=== PATIENT | female | born 1940 | race Caucasian/White ===

== ENCOUNTER 2023-01-03 17:18 | Observation (INO) | payer OTHER, SELFPAY ==
[2023-01-03] VITALS (19 sets, daily range): BP systolic 113–162; BP diastolic 60–82; PULSE 66–86; RESP 11–22; TEMP 35.9–36.5; O2SAT 93–100; BMI 20.6; BMI 19.5
--- NOTE | ~2023-01-03 | XR_ITS ---
EXAMINATION: XR chest 2V Exam Date/Time: 01/03/2023 18:50 CDT HISTORY: chest pain x3 days, left side, no cardiac hx Comparison: None available. RESULT: Lines, tubes, and devices: None. Lungs and pleura: Senescent changes. No focal consolidation or pneumothorax. Cardiomediastinal silhouette: Aortic arch calcification. Mild aortic tortuosity. Other: No acute upper abdominal finding. Osteopenia. Degenerative changes in the shoulders and spine . Moderate wedge compression deformity of a midthoracic vertebral body. IMPRESSION: No acute cardiopulmonary process. Moderate wedge compression deformity of a mid thoracic vertebral alanna dy of uncertain age, correlate with pain/tenderness. Reviewed, dictated and finalized at location K. IMPRESSION: No acute cardiopulmonary process. Moderate wedge compression deformity of a mid thoracic vertebral body of uncertain age, correlate with pain/tenderness.
--- NOTE | ~2023-01-03 | XR_ITS ---
EXAMINATION: XR_RIBSBI_CR Exam Date/Time: 01/04/2023 14:05 CDT HISTORY: rib pn LEFT SIDE PAINS Comparison: CTPA 01/03/2023. RESULT: Lines, tubes, and devices: None. Lungs and pleura: Senescent changes. Biapical pleural scarring.. Cardiothymic silhouette: Stable. Other: No acute osseous or upper abdominal finding. Thoracolumbar scoliosis. Thoracic and lumbar deg enerative disc disease. Redemonstration of the moderate compression deformity at T6. IMPRESSION: No acute osseous finding in the ribs. Small left pleural effusion versus chronic pleural parenchymal scarring Reviewed, dictated and finalized at location K. IMPRESSION: No acute osseous finding in the ribs. Small left pleural effusion versus chroni c pleural parenchymal scarring
--- NOTE | ~2023-01-03 | CT_ITS ---
EXAMINATION: CTA chest PE protocol DATE: 01/03/2023 19:21 INDICATION: Left sided chest pain TECHNIQUE: Computed tomography angiography (CTA) of the chest was performed with 100 mL Omnipaque-350 intravenous contrast timed to evaluate the pulmonary arteries. Coronal maximum intensity projection 3D-reconstructions were created by the technologist. The dose-length product (DLP) was 165.80 mGy-cm. Automated exposure control and iterative reconstruction technique were employed. COMPARISON: X-ray chest, same date. FINDINGS: Lung parenchyma and airways: Lingular and right middle lobe scar/atelectasis. Minimal dependent atele ctasis. Pleura: Unremarkable. Thoracic inlet, axillae and chest wall: Unremarkable. Thoracic aorta: Mild arch calcification. Mediastinum: Mild central pulmonary artery enlargement as can be seen with pulmonary arterial hyperte nsion. Heart and pericardium: Mild cardiomegaly. Coronary artery calcifications: Absent. Upper abdomen: No significant finding. Bones: Moderate compression deformity at T6. Otherwise, no acute osseous finding. Pulmonary arteries: Study quality: Adequate. No pulmonary emboli detected. IMPRESSION: No CT evidence of acute pulmonary embolus. Moderate compression deformity at T6, of uncertain age, co rrelate with pain/tenderness. Reviewed, dictated and finalized at location K. IMPRESSION: No CT evidence of acute pulmonary embolus. Moderate compression deformity at T6 , of uncertain age, correlate with pain/tenderness.
--- NOTE | 2023-01-03 17:19 | ECG_ITS ---
Measurements Intervals [place] Rate: 77 P: 66 DC: 197 QRS: -41 QRSD: 104 T: -11 QT: 356 QTc: 405 Interpretive Statements SINUS RHYTHM LEFT AXIS DEVIATION POSSIBLE LEFT ATRIAL ENLARGEMENT DELAYED PRECORDIAL R/S TRANSITION BORDERLINE ST-T WAVE ABNORMALITY- INFERIOR LEADS BORDERLINE ECG NO PREVIOUS ECG AVAILABLE FOR COMPARISON Electronically Signed On 01-03-2023 21:47:07 CDT by Marcellus Mcfarlane D.O.
[2023-01-03 17:36] LABS: Basophils Percent Auto 0.2 % (0.2-1.2); Hematocrit 32.3 % (37.0-47.0); Hemoglobin 11.3 g/dL (12.0-15.0); Immature Granulocyte Absolute 0.23 K/mm3 (0.00-0.031); Lymphocytes Absolute Auto 0.77 K/mm3 (0.9-3.2); Lymphocytes Percent Auto 6.8 % (18.3-44.2); Mean Corpuscular Hemoglobin 31.6 pg (26-34); Mean Corpuscular Volume 90.2 fl (80-100); Mean Platelet Volume 8.7 fl (7.4-10.4); Monocytes Absolute Auto 0.4 K/mm3 (0.1-0.6); Monocytes Percent Auto 3.1 % (2.6-8.5); Neutrophils Absolute Auto 9.9 K/mm3 (1.3-6.7); Neutrophils Percent Auto 87.9 % (45.5-73.1); Platelet Count Result 261 k/mm3 (150-375); Red Blood Count 3.58 M/mm3 (4.2-5.4); Red Cell Distribution Width 19.1 % (11.5-14.5); White Blood Count 11.3 K/mm3 (4.5-10.0)
[2023-01-03 17:46] LABS: Prothrombin Time 12.7 Seconds (11.1-14.7)
[2023-01-03 17:47] LABS: Partial Thromboplastin Time 24.2 SECONDS (22.3-36.8)
[2023-01-03 17:48] LABS: Alanine Aminotransferase 30 U/L (6-35); Albumin Level 3.5 g/dL (3.5-5.1); Alkaline Phosphatase 89 U/L (38-126); Anion Gap 1 mmol/L (8-16); Aspartate Amino Transferase 22 U/L (14-36); Bilirubin,Total 1.6 mg/dL (0.2-1.3); Blood Urea Nitrogen 21 mg/dL (7-17); Calcium 8.5 mg/dL (8.4-10.2); Carbon Dioxide 33 mmol/L (22-30); Chloride 92 mmol/L (98-107); Estimated Glomerular Filt Rate > 60; Glucose 371 mg/dL (65-110); Lipase 54 U/L (23-300); Potassium 4.4 mmol/L (3.4-5.0); Sodium 126 mmol/L (137-145)
[2023-01-03 18:10] LABS: Troponin I 0.046 ng/mL (0.000-0.034)
[2023-01-03] MEDS: MORPHINE SULFATE (*CRX) 2 MG/ML INJ IV PUSH (19:35)
[2023-01-03 21:09] LABS: Troponin I 0.046 ng/mL (0.000-0.034)
--- NOTE | 2023-01-03 21:20 | PM.IMHP ---
H&P: HPI History of Present Illness Date/Time: 01/03/23 21:20 Chief Complaint: Rib cage pain Narrative: This is an 82-year-old female with past medical history significant for COPD/emphysema, hypertension, stroke, dyslipidemia, temporal arteritis on chronic p.o. steroids, patient was brought to the emergency room for evaluation due to left-sided precordial ribcage pain which is reproducible with movement however patient had elevated troponins along with this, denies any fevers, rigors, chills, rash, nausea, vomiting, abdominal pain, hematemesis, or emesis. Pain is worse with movement it is relieved by pain medication. Patient denies any fevers, chills or rigors. A CT angiogram of the chest PE protocol was reported as: FINDINGS:? Lung parenchyma and airways: Lingular and right middle lobe scar/atelectasis. Minimal dependent atelectasis. Pleura: Unremarkable. Thoracic inlet, axillae and chest wall: Unremarkable. Thoracic aorta: Mild arch calcification. Mediastinum: Mild central pulmonary artery enlargement as can be seen with pulmonary arterial hypertension. Heart and pericardium: Mild cardiomegaly. Coronary artery calcifications: Absent. Upper abdomen: No significant finding. Bones: Moderate compression deformity at T6. Otherwise, no acute osseous finding. Pulmonary arteries: Study quality: Adequate. No pulmonary emboli detected. IMPRESSION: No CT evidence of acute pulmonary embolus. Moderate compression deformity at T6, of uncertain age, correlate with pain/tenderness. A chest x-ray was reported as: IMPRESSION: No acute cardiopulmonary process. Moderate wedge compression deformity of a mid thoracic vertebral body of uncertain age, correlate with pain/tenderness. Review of Systems Review of Systems: Left ribcage pain along the precordial area Constitutional: Constitutional: Denies chills, Denies fatigue, Denies fever(s), Denies lethargy, Denies malaise, Denies night sweats, Denies poor appetite and Denies weakness Eyes: Eyes: Denies change in vision ENT: Denies dysphagia and Denies odynophagia Cardiovascular: Cardiovascular: Reports chest pain, Denies leg edema, Denies lightheadedness and Denies palpitations Respiratory: Respiratory: Denies chest congestion, Denies cough, Denies excessive phlegm production, Denies pain on inspiration and Denies dyspnea Gastrointestinal: Gastrointestinal: Denies abdominal pain, Denies dyspepsia, Denies heartburn, Denies diarrhea, Denies nausea and Denies vomiting Genitourinary: Genitourinary: Denies dysuria Musculoskeletal: Musculoskeletal: Reports other (Left ribcage pain) Integumentary/Breasts: Skin/Breast: Denies rash Neurologic: Denies focal weakness and Denies Sensory deficit (Neuro) Psychiatric: Psychiatric: Reports no additional psychiatric complaints and Reports as per HPI Endocrine: Endocrine: Denies cold intolerance, Denies flushing, Denies heat intolerance, Denies polyphagia, Denies polydipsia and Denies palpitations Hematologic/Lymphatic: Hematologic/Lymphatic: Reports no additional hematologic/lymphatic complaints and Reports as per HPI Allergic/Immunologic: Allergic/Immunologic: Reports no additional allergic/immunologic complaints and Reports as per HPI PMFSH Past Medical History Medical History (Updated 01/04/23 @ 02:34 by Amita Brumfield MD) Depression History of CVA (cerebrovascular accident) 2014 HTN (hypertension), benign Mixed hyperlipidemia Temporal arteritis Surgical History Surgical History History of surgery on wrist Social History Social History (Updated 11/14/22 @ 12:56 by Leslie Win MA) Smoking status: Never smoker Alcohol intake: current Drinks per week: 1 Substance use: never Lack of Transportation: No Lack of Food: Never True Current Housing: I Have Housing Concerned About Future Housing: No Difficulty Paying Gas/Electric Bills: No
--- NOTE | 2023-01-03 21:22 | PC.NURSE ---
Per MD Paredes, okay for patient to take home dose prednisone at this time.
--- NOTE | 2023-01-03 21:47 | ED.CHESTPAIN ---
HPI - Chest Pain General Chief Complaint: Chest Pain Stated Complaint: chest pain Time Seen by Provider: 01/03/23 18:31 History of Present Illness HPI narrative: Patient is an 82-year-old female who presents ER with chest pain. Left-sided. Ongoing for 4 days. Radiates down left arm as well. Began at rest. No falls. Patient also has mechanical pain to her left chest wall. This will sometimes cause her to deteriorate up. No pain with deep breath. Patient does report exertional chest discomfort. She has no history of DC or stenting. She does have recent diagnosis of temporal arteritis. She takes prednisone for this. Related Data Home Medications Medication Instructions Recorded Confirmed amlodipine 5 mg tablet 5 mg PO BID 11/14/22 12/12/22 atorvastatin 10 mg tablet 10 mg PO DAILY 11/14/22 12/12/22 mirtazapine 15 mg tablet 15 mg PO 11/14/22 11/14/22 nystatin 100,000 unit/mL oral 5 ml PO 11/14/22 12/12/22 suspension prednisone 20 mg tablet 20 mg PO 11/14/22 12/12/22 ranitidine HCl 25 mg effervescent mg PO 11/14/22 12/12/22 tablet Allergies Allergy/AdvReac Type Severity Reaction Status Date / Time No Known Allergies Allergy Unverified 12/12/22 09:44 Review of Systems Review of Systems: All systems reviewed & are unremarkable except as noted in HPI and below Constitutional: Constitutional: Denies chills, Denies fatigue and Denies fever(s) ENT: Denies nasal congestion and Denies sore throat Cardiovascular: Cardiovascular: Reports chest pain, Denies rapid heart rate and Reports radiating jaw, neck or arm pain Respiratory: Respiratory: Denies cough and Denies dyspnea Gastrointestinal: Gastrointestinal: Denies abdominal pain, Denies nausea and Denies vomiting [facility] Past Medical History Medical History (Updated 01/03/23 @ 22:50 by Jn Paredes MD) Depression History of CVA (cerebrovascular accident) 2014 HTN (hypertension), benign Mixed hyperlipidemia Temporal arteritis Surgical History Surgical History History of surgery on wrist Social History Social History (Updated 11/14/22 @ 12:56 by Leslie Win MA) Smoking status: Never smoker Alcohol intake: never Substance use: never Lack of Transportation: No Lack of Food: Never True Current Housing: I Have Housing Concerned About Future Housing: No Difficulty Paying Gas/Electric Bills: No Difficulty Paying for Meds: No Currently Unemployed: No Education: High School Diploma/GED Difficulty w/ Childcare or Family Care: No Gender identity (if verbalized by the patient): Female Exam Narrative: GENERAL: Well-appearing, well-nourished, and in no acute distress. HEAD: Normocephalic, atraumatic. EYES: PERRL and EOMI. NECK: Supple. CHEST: Clear to auscultation. No respiratory distress. Tender palpation left chest wall. HEART: Regular rate and rhythm. Normal peripheral pulses. ABDOMEN: Soft, nontender, nondistended. EXTREMITIES: Normal range of motion. No edema. SKIN: Warm, dry, no rash. NEURO: Alert and oriented x3. PSYCH: Normal mood and affect. Course Course Emergency Course: Pain improved with morphine however patient has elevated troponin without history of DC. Would recommend admission to hospitalist service for further evaluation. No PE. Poor glycemic control. Low sodium. Admit to hospitalist service. Lovenox given. Vital Signs Vital signs: Vital Signs Temperature 96.7 F L 01/03/23 17:51 Pulse Rate 86 01/03/23 17:51 Respiratory Rate 18 01/03/23 17:51 Blood Pressure 142/73 H 01/03/23 17:51 Pulse Oximetry 100 01/03/23 17:51 Oxygen Delivery Room Air 01/03/23 17:51 Temperature 96.7 F L 01/03/23 17:51 Pulse Rate 74 01/03/23 21:23 Respiratory Rate 16 01/03/23 21:23 Blood Pressure 129/68 01/03/23 21:23 Pulse Oximetry 99 01/03/23 21:23 Oxygen Delivery Room Air 01/03/23 17:51 MDM - Chest Pain
[2023-01-03] MEDS: MORPHINE SULFATE (*CRX) 4 MG/ML INJ 2 MG IV PUSH (21:58)
[2023-01-03] MEDS: ENOXAPARIN 60 MG/0.6 ML SYRINGE 49 MG SUB-Q (21:58)
--- NOTE | 2023-01-03 23:51 | ADMGEN ---
This patient, Yuridia Garcia, was admitted to IMU Room 212-01. Patient/family oriented to hospital policies and general routines including ID bracelet, bed and alarms, visiting hours, pain management, procedures, bathroom and other care routines, personal items, smoking policy, room service/diet, and visiting hours. Information on how to activate the Rapid Response Team has been discussed. Patient/Family are encouraged to report perceived risks to care and to ask questions if they do not understand what they are told or what they should do.
[2023-01-03 23:56] LABS: Troponin I 0.052 ng/mL (0.000-0.034)
[2023-01-04] VITALS (9 sets, daily range): BP systolic 130–160; BP diastolic 62–77; PULSE 63–90; RESP 18–20; TEMP 36.1–36.5; O2SAT 96–100
--- NOTE | 2023-01-04 | ECHO_ITS ---
Patient Info Name: Yuridia Garcia Age: 82 years : 1940 Gender: Female Ht: 62 in Wt: 107 lbs BSA: 1.45 m2 HR: 74 bpm BP: 160 / 66 mmHg Heart Rhythm: Sinus Rhythm Technical Quality: Good Exam Date: 01/04/2023 11:02 AM Exam Location: [facility] Card Pulmonary Patient Status: Inpatient Admit Date: 01/03/2023 Staff Ordering Physician: Jj Rankin MD (sherri/camille) Nuisance Wildlife Control Operator: Jessica Prakash RDCS Attending Provider: Amita Brumfield MD Referring Physician: Chucho ALVAREZ; Exam Type: CA echo doppler color flow Study Info Indications R07.9 - Chest pain, unspecified Complete two-dimensional, color flow and Doppler transthoracic echocardiogram is performed. Summary 1. Complete two-dimensional, color flow and Doppler transthoracic echocardiogram is performed. 2. Left ventricular chamber dimension is normal. 3. Left ventricular systolic function is normal, estimated at 65-70%. No regional wall motion abnormalities. 4. The left ventricular diastolic function is grade I diastolic dysfunction. 5. Right ventricular systolic function is normal. 6. There is mild aortic valve sclerosis. 7. The mitral valve has thickened leaflets. 8. There is mild tricuspid valve regurgitation. 9. Normal inferior vena cava with >50% collapse upon inspiration consistent with normal right atrial pressure, 3 mmHg. 10. There is trivial pericardial effusion. Left Ventricle Left ventricular chamber dimension is normal. Left ventricular systolic function is normal, estimated at 65-70%. No regional wall motion abnormalities. There is no increased left ventricular wall thickness. The left ventricular diastolic function is grade I diastolic dysfunction. Right Ventricle Right ventricular chamber dimension is normal. Right ventricular systolic function is normal. Left Atria Left atrial chamber dimension is normal. Right Atria Right atrial chamber dimension is normal. Atrial Septum Intact interatrial septum visualized by color flow imaging. Aortic Valve The aortic valve is not well visualized. There is mild aortic valve sclerosis. There is no aortic valve stenosis. There is no aortic valve regurgitation. Pulmonic Valve The pulmonic valve is not well visualized. There is trace pulmonic regurgitation. Mitral Valve The mitral valve has thickened leaflets. There is no mitral valve stenosis. There is trace mitral valve regurgitation. Tricuspid Valve There is mild tricuspid valve regurgitation. Pericardium/Pleural There is trivial pericardial effusion. Inferior Vena Cava Normal inferior vena cava with >50% collapse upon inspiration consistent with normal right atrial pressure, 3 mmHg. Aorta The aortic root size at the sinus of Valsalva is normal. Left Ventricular Outflow Tract Name Value Normal LVOT 2D LVOT Diameter 2.0 cm LVOT Doppler LVOT Peak Gradient 6 mmHg LVOT Mean Gradient 3 mmHg LVOT VTI 22 cm LVOT VTI/AV VTI Ratio 0.8 LVOT Stroke Volume
[2023-01-04] MEDS: UMECLIDINIUM BROMIDE 62.5 MCG ELLIPTA 1 PUFF INHALATION (09:16)
[2023-01-04] MEDS: MULTIVITAMINS /C LUTEIN (CENTRUM SILVER) TABLET *BKC 1 TAB PO (09:31)
[2023-01-04] MEDS: ATORVASTATIN 10 MG TABLET PO (09:32)
[2023-01-04] MEDS: predniSONE 20 MG TABLET PO ×2 (09:32→12:25)
[2023-01-04] MEDS: LOSARTAN POTASSIUM 50 MG TABLET PO (09:32)
[2023-01-04] MEDS: ACIDOPHILUS/BULGARICUS CHEWABLE TABLET 2 TABLET BY MOUTH (09:37)
--- NOTE | 2023-01-04 11:47 | PM.CNCAR ---
Assessment and Plan Assessment and plan (1) Chest pain: Code(s): R07.9 - Chest pain, unspecified Status: Acute (2) Elevated troponin: Code(s): R77.8 - Other specified abnormalities of plasma proteins Status: Acute (3) Chronic steroid use: Status: Acute Plan This is an 82-year-old female with a history of COPD/emphysema, hypertension, stroke, dyslipidemia, temporal arteritis on prednisone who presented for chest pain evaluation. Upon my evaluation, patient is tearful throughout my conversation with her. She tells me that her chest pain first started about 2-3 weeks ago and felt worse since last weekend. Patient reports her pain is left sided and feels like a soreness. When she goes from supine position to sitting position, it worsens her pain. No clear association with breathing. Reports that it feels worse with walking at times too. Got better with Morphine that was given in the ER. When I palpate her left chest wall, patient reports that it makes it feel sore. No radiation of the pain. ER evaluation showed sinus rhythm with nonspecific T-wave abnormality; no ischemic changes. Troponins were mildly elevated and flat at 0.046 --> 0.046 --> 0.052. Patient also noted to be hyponatremic at 126. CTA was negative for PE, did show mild aortic arch calcification, mild central pulmonary artery enlargement, mild cardiomegaly, no coronary artery calcifications, moderate compression deformity at T6. Patient states she has been on prednisone since September. Her troponins are flat, which is not the usual pattern for ACS where you have rise and fall of troponins. EKG without ischemic changes. Atypical features to her symptoms, no coronary artery calcifications noted on CTA. Will obtain a transthoracic echocardiogram and go from there. History of Present Illness History of Present Illness Consult date/time: 01/04/23 11:47 Requesting physician: Jn Paredes MD Consult reason: chest pain Reason For Visit: chest pain, elevated trop Narrative: We are consulted for chest pain. This is an 82-year-old female with a history of COPD/emphysema, hypertension, stroke, dyslipidemia, temporal arteritis on prednisone who presented to the [place] ER for chest pain evaluation. Upon my evaluation, patient is tearful throughout my conversation with her. She tells me that her chest pain first started about 2-3 weeks ago and felt worse since last weekend. Patient reports her pain is left sided and feels like a soreness. When she goes from supine position to sitting position, it worsens her pain. No clear association with breathing. Reports that it feels worse with walking at times too. Got better with Morphine that was given in the ER. When I palpate her left chest wall, patient reports that it makes it feel sore. No radiation of the pain. ER evaluation showed sinus rhythm with nonspecific T-wave abnormality; no ischemic changes. Troponins were mildly elevated and flat at 0.046 --> 0.046 --> 0.052. Patient also noted to be hyponatremic at 126. CTA was negative for PE, did show mild aortic arch calcification, mild central pulmonary artery enlargement, mild cardiomegaly, no coronary artery calcifications, moderate compression deformity at T6. Patient states she has been on prednisone since September. Review of Systems Review of Systems: All systems reviewed & are unremarkable except as noted in HPI and below (HPI) [facility] Past Medical History Medical History Depression History of CVA (cerebrovascular accident) 2014 HTN (hypertension), benign Mixed hyperlipidemia Temporal arteritis Surgical History Surgical History History of surgery on wrist Social History Social History Smoking status: Never smoker Alcohol intake: current Drinks per week: 1 Substance use: never Lack of Transp
--- NOTE | 2023-01-04 13:02 | PM.DS ---
DS: Admitting Diagnosis Discharge Date January 04, 2023 Admitting Diagnosis Chest pain DS: Discharge Diagnosis Discharge Diagnosis (1) Elevated troponin: Code(s): R77.8 - Other specified abnormalities of plasma proteins Status: Acute Assessment and Plan: Admit to IMU Serial troponins Cardiology consult in a.m. Continue to monitor No EKG changes (2) HTN (hypertension), benign: Code(s): I10 - Essential (primary) hypertension Status: Acute Assessment and Plan: Continue home meds Continue to monitor (3) Temporal arteritis: Code(s): M31.6 - Other giant cell arteritis Status: Acute Assessment and Plan: Continue prednisone orally daily (4) Wedge compression fracture of sixth thoracic vertebra: Code(s): S22.050A - Wedge compression fracture of T5-T6 vertebra, initial encounter for closed fracture Status: Acute Assessment and Plan: Pain management Supportive care DS: Summary Hospital Course Hospital Course: Patient was admitted for chest pain mild bump in troponin but no rise and fall. Cardiology evaluated the patient did not feel this was cardiac. I agree. Patient can be discharged home. Time Spent with Patient Time attestation: Total time spent providing and/or coordinating discharge services: Exam Narrative: Patient is laying in a stretcher in semi upright position Const: General: comfortable, no acute distress, well developed (According to elderly female for her age), alert, awake and average body habitus Nutritional Appearance: average body habitus Orientation/consciousness: patient oriented x3 HENMT: Head: normal to inspection, normocephalic and atraumatic Ears: hearing grossly normal bilaterally Face/Nose/Sinus: normal facial exam Face and sinus: normal facial exam Eyes: General: appearance normal, both eyes and all related structures Pupils: Equal, round and reactive pupils present EOM: EOMs intact bilaterally Neck: Neck: full ROM, no lymphadenopathy and no JVD Thyroid: thyroid normal Lymphatic: no lymphadenopathy noted Resp: Effort & Inspection: normal respiratory effort and able to speak in complete sentences Auscultation: clear to auscultation bilaterally Cardio: Jugular venous distension: no JVD Rate: regular rate Rhythm: regular rhythm Heart sounds: S1 normal heart sound present and S2 normal heart sound present : General: Yes deferred Skin: Rashes: no rashes Wounds: no wounds Neuro: General: patient oriented x3, CN's II-XI intact bilaterally and Unable to assess gait Cranial nerves: Yes CN's II-XII intact bilaterally and Yes Equal, round and reactive pupils present Cognition (Neuro): normal cognition Speech: normal speech Gait exam (Neuro): Unable to assess gait Motor exam (neuro): 5/5 motor strength present throughout Sensory Exam: No Sensory deficit (Neuro) Extrem: General: normal to inspection, full ROM, no joint enlargement and no pedal edema DS: Data Data Completed and Pending Labs on day of discharge: Labs from last 24 hours 01/03/23 01/03/23 01/03/23 23:27 20:36 17:27 WBC RBC Hgb Hct MCV MCH MCHC RDW Plt Count MPV Immature Gran % (Auto) Neut % (Auto) Lymph % (Auto) Dillon % (Auto) Eos % (Auto) Baso % (Auto) Lymph # (Auto) [place] # (Auto) Eos # (Auto) Baso # (Auto) Abs Immat Gran (auto) Absolute Neuts (auto) Absolute Nucleated RBC Nucleated RBC % PT INR APTT Sodium 126 L Potassium 4.4 Chloride 92 L Carbon Dioxide 33 H Anion Gap 1 L BUN 21 H Creatinine 0.60 L Estim Creat Clear Calc Not Reportable Estimated GFR > 60 Glucose 371 H Calcium 8.5 Total Bilirubin 1.6 H AST 22 ALT 30 Alkaline Phosphatase 89 Troponin I 0.052 H* 0.046 H* 0.046 H* Total Protein 6.0 L Albumin 3.5 Lipase 54 01/03/23 01/03/23 17:27 17:27 WBC 11.3 H RBC
== END 2023-01-04 15:30 | disposition home health service (06) ==
LOC: ANHED 22:50 → ANHIMU 01-04 07:24
PROVIDERS: Admitting Provider Internal Medicine; Emergency Provider Emergency Medicine; PCP Family Medicine; Visit Provider Chiropractor
DX: R77.8 Other specified abnormalities of plasma proteins (principal); I11.9 Hypertensive heart disease without heart failure; M31.6 Other giant cell arteritis; S22.050A Wedge compression fracture of T5-T6 vertebra, initial encounter for closed fracture; R07.9 Chest pain, unspecified; F32.A Depression, unspecified; R91.8 Other nonspecific abnormal finding of lung field; R07.81 Pleurodynia; E78.5 Hyperlipidemia, unspecified; J44.9 Chronic obstructive pulmonary disease, unspecified; I70.0 Atherosclerosis of aorta; I07.1 Rheumatic tricuspid insufficiency; F10.90 Alcohol use, unspecified, uncomplicated; Z86.73 Personal history of transient ischemic attack (TIA), and cerebral infarction without residual deficits; Z79.52 Long term (current) use of systemic steroids; Z79.82 Long term (current) use of aspirin; Z79.51 Long term (current) use of inhaled steroids; Z79.899 Other long term (current) drug therapy
CPT/HCPCS: 36415; 71046; 71110; 71275; 80053; 83690; 84484; 85025; 85610; 85730; 93005; 93306; 94640; 96365; 96372; 96374; 96375; 96376; 97161; 99285; A9270; G0378; J0131; J1650; J2270; J7512; Q9967

== ENCOUNTER → 2023-03-06 17:29 | Outpatient (CLI) | payer OTHER, SELFPAY ==
--- NOTE | ~2023-03-06 | XR_ITS ---
XR thoracic spine 2V 03/06/2023 18:19 Indication: Encounter for medication monitoring Procedure: 3 views thoracic spine Comparison: CT dated 01/03/2023 Findings: There are wedge compression fractures of T6-T8. The fractures at T7 and T8 are new compared with prior CT. There is accentuated thoracic kyphosis. Osteopenia there is scoliosis. No paraspinal soft tissue abnormality. There is atherosclerosis. There is mild thoracic spondylosis. Impression: 1: New wedge compression fractures of T7 and T8 compared with 01/03/2023 CT examination, likely acute/ subacute. 2: Unchanged T6 compression fracture, likely chronic. 3: Scoliosis. Reviewed, dictated and finalized at location L. Impression: 1: New wedge compression fractures of T7 and T8 compared with 01/03/2023 CT exam ination, likely acute/subacute. 2: Unchanged T6 compression fracture, likely chronic. 3: Scoliosis.
--- NOTE | ~2023-03-06 | XR_ITS ---
XR chest 2V 03/06/2023 18:19 Indication: Encounter for medication monitoring Procedure: 2 view chest Comparison: CT dated 01/03/2023 and chest x-ray dated 01/03/2023 Findings: There is a new nodule left mid thorax. Cardiomegaly. No focal air space disease, pulmonary edema, pleural effusion or suspected pneumothorax. There are multiple wedge compression fractures of the midthoracic spine with progression since prior CT. There is accentuated kyphosis. Impression: 1: New nodular density left mid thorax. Recommend correlation with CT chest. 2: Interval progression of wedge compression fractures of multiple midthoracic vertebra compared wit h prior CT. Reviewed, dictated and finalized at location L. Impression: 1: New nodular density left mid thorax. Recommend correlation with CT chest. 2: Interval progression of wedge compression fractures of multiple midthoracic vertebra compared with prior CT.
--- NOTE | ~2023-03-06 | XR_ITS ---
[XR_RIBSBI_CR ] INDICATION: Encounter for medication monitoring TECHNIQUE: Frontal projection of the upper ribs, frontal projection of the lower ribs, oblique projec tion of all the ribs, frontal inspiratory chest x-ray for interpretation. FINDINGS: There are no displaced rib fractures identified. Osteopenia. There are no soft tissue abno rmality seen. The lungs are clear. Moderate thoracic spondylosis with scoliosis. There is a nodular density left upper thorax, not seen on prior examination dated 01/04/2023 there is scoliosis of the t horacic spine. Visualized bowel gas pattern is nonobstructive. IMPRESSION: 1:No acute displaced rib fractures. 2:New nodular density left upper thorax. Correlation with CT chest recommended. Reviewed, dictated and finalized at location L.
--- NOTE | ~2023-03-06 | XR_ITS ---
XR lumbar spine min 4V 03/06/2023 18:19 Indication: Back pain. Encounter for medication monitoring. Procedure: 5 views lumbar spine including oblique images Comparison: No prior studies for comparison. Findings: There is dextroscoliosis. Osteopenia. There is disc narrowing at all lumbar levels. There i s moderate multilevel facet hypertrophy. No evidence for spondylolisthesis. No acute fracture or trau matic malalignment. There is atherosclerosis of the aorta. Sacrum is grossly unremarkable. Impression: 1: Moderate lumbar spondylosis with dextroscoliosis. Reviewed, dictated and finalized at location L. Impression: 1: Moderate lumbar spondylosis with dextroscoliosis.
== END ==
PROVIDERS: PCP Family Medicine; Visit Provider Internal Medicine Rheumatology
DX: Z51.81 Encounter for therapeutic drug level monitoring (principal); Z79.899 Other long term (current) drug therapy; M41.9 Scoliosis, unspecified; M47.896 Other spondylosis, lumbar region
CPT/HCPCS: 71046; 71110; 72070; 72110

== ENCOUNTER → 2023-03-10 14:17 | Outpatient (CLI) | payer OTHER, SELFPAY ==
--- NOTE | ~2023-03-10 | CT_ITS ---
EXAMINATION:CT diagnostic chest wo con DATE: 03/10/2023 14:37 INDICATION: Solitary pulmonary nodule. TECHNIQUE: Computed tomography (CT) of the chest was performed without intravenous contrast. Automate d exposure control and iterative reconstruction technique were employed. The dose-length product (DLP ) was 34.50 mGy-cm. COMPARISON: Chest CT 01/03/2023, chest 2 views 03/06/2023 FINDINGS: There is mild scarring at the lung apices. There is mild atelectasis bilaterally. There are 18 mm and 11 mm nodules in left upper lobe. No pleural effusion. The heart size is normal. No perica rdial effusion. There is a burst fracture of T6 with worsening from 01/03/23. There are burst fracture s of T7 and T8, new from 01/03/23. There is thoracic kyphosis and moderate spondylosis. IMPRESSION: 1. Nodules in left lung upper lobe, new from 01/03/2023, likely infection. 2. T6 burst fracture, worsened from 01/03/2023. 3. T7 and T8 burst fractures, new from 01/03/2023. Reviewed, dictated and finalized at location E.
== END ==
PROVIDERS: PCP Family Medicine; Visit Provider Nurse Practitioner Family
DX: R91.8 Other nonspecific abnormal finding of lung field (principal); S22.051A Stable burst fracture of T5-T6 vertebra, initial encounter for closed fracture; S22.061A Stable burst fracture of T7-T8 vertebra, initial encounter for closed fracture; X58.XXXA Exposure to other specified factors, initial encounter
CPT/HCPCS: 71250

== ENCOUNTER 2023-05-12 14:26 | Emergency (ER) | payer OTHER, SELFPAY ==
--- NOTE | ~2023-05-12 | CT_ITS ---
EXAMINATION: CT brain wo con DATE: 05/12/2023 14:48 INDICATION: Dizziness and headache TECHNIQUE: Computed tomography (CT) of the head was performed without intravenous contrast. Sagittal and coronal reconstructions were performed. The mA was adjusted according to patient size. Iterative reconstruction technique was employed. The dose-length product was 908.00 mGy-cm. COMPARISON: head CT dated 10/09/2011 FINDINGS: No acute intracranial hemorrhage, acute infarction or abnormal extra axial fluid collection. Small ol d lacunar infarct at the posterior left lentiform nucleus extending into the emmanuel radiata. There is mild scattered white matter hypoattenuation consistent with chronic small vessel ischemic disease. V entricles are normal and symmetric. No mass/mass effect. Changes of bilateral intraocular lens replac ement. Mild mucosal thickening in the left maxillary and ethmoid sinuses with mucous retention cyst a t the floor of the left maxillary sinus. Postoperative change of prior bilateral antral window proced ures with defects along the medial cline of the left and right maxillary sinuses. Bilateral small mas toid effusions. Intracranial calcified cerebral atherosclerosis is noted. IMPRESSION: 1. No acute intracranial process. 2. Small old lacunar infarct at the left lentiform nucleus and adjacent emmanuel radiata. 3. Mild scattered white matter hypoattenuation consistent with chronic small vessel ischemic disease. Reviewed, dictated and finalized at location A. IMPRESSION: 1. No acute intracranial process. 2. Small old lacunar infarct at the left lentiform nucleus and adjacent emmanuel radiata. 3. Mild scattered white matter hypoattenuation consistent with chronic small ve ssel ischemic disease.
[2023-05-12 14:27] VITALS: BP 150/75; PULSE 87; RESP 16; TEMP 36.7; O2SAT 96
[2023-05-12 14:45] LABS: Basophils Percent Auto 0.2 % (0.2-1.2); Hematocrit 30.3 % (37.0-47.0); Hemoglobin 9.3 g/dL (12.0-15.0); Immature Granulocyte Absolute 0.04 K/mm3 (0.00-0.031); Immature Granulocyte Percent A 0.4 % (0-0.5); Lymphocytes Absolute Auto 0.57 K/mm3 (0.9-3.2); Lymphocytes Percent Auto 5.4 % (18.3-44.2); Mean Corpuscular HGB Conc 30.7 g/dl (32-36); Mean Corpuscular Hemoglobin 30.1 pg (26-34); Mean Corpuscular Volume 98.1 fl (80-100); Mean Platelet Volume 8.4 fl (7.4-10.4); Monocytes Absolute Auto 0.3 K/mm3 (0.1-0.6); Monocytes Percent Auto 2.7 % (2.6-8.5); Neutrophils Absolute Auto 9.7 K/mm3 (1.3-6.7); Neutrophils Percent Auto 91.3 % (45.5-73.1); Platelet Count Result 274 k/mm3 (150-375); Red Blood Count 3.09 M/mm3 (4.2-5.4); Red Cell Distribution Width 15.8 % (11.5-14.5); White Blood Count 10.6 K/mm3 (4.5-10.0)
[2023-05-12 14:57] LABS: Alanine Aminotransferase 24 U/L (6-35); Albumin Level 4.1 g/dL (3.5-5.1); Alkaline Phosphatase 79 U/L (38-126); Anion Gap 5 mmol/L (8-16); Aspartate Amino Transferase 26 U/L (14-36); Bilirubin,Total 1.2 mg/dL (0.2-1.3); Blood Urea Nitrogen 18 mg/dL (7-17); Calcium 8.9 mg/dL (8.4-10.2); Carbon Dioxide 29 mmol/L (22-30); Chloride 99 mmol/L (98-107); Estimated CRCL calculation 37 ml/min; Estimated Glomerular Filt Rate > 60; Glucose 150 mg/dL (65-110); Potassium 4.4 mmol/L (3.4-5.0); Sodium 133 mmol/L (137-145)
[2023-05-12 15:10] LABS: Erythrocyte Sedimentation Rate 21 mm/hr (0-20)
[2023-05-12 15:18] LABS: Hypochromasia 1+ (NORMAL); Platelet Estimate Adequate (Adequate); Schistocytes None Seen (NORMAL)
[2023-05-12 15:19] LABS: Anisocytosis 2+ (NORMAL)
--- NOTE | 2023-05-12 15:44 | ED.HA ---
HPI - Headache General Chief Complaint: Headache Stated Complaint: headache Time Seen by Provider: 05/12/23 15:12 History of Present Illness HPI Narrative: This is an 82-year-old female with past history of temporal arteritis, on prednisone and methotrexate, who presents to the emergency department complaining of a headache. The patient states she has intermittent headaches, though this was described as throbbing, rated 5/10 associated with some left scientology soreness. She also noted some right a blurred vision that has since improved. She states her headache has completely resolved. She denies weakness, numbness, nausea or vomiting. Related Data Home Medications Medication Instructions Recorded Confirmed atorvastatin 10 mg tablet 10 mg PO DAILY 11/14/22 03/15/23 albuterol sulfate 90 mcg/actuation 2 puff inhalation QID PRN 01/04/23 03/15/23 aerosol inhaler (ProAir HFA) Shortness Of Breath Or Wheezing albuterol sulfate 90 mcg/actuation 1 inh inhalation Q4-6H PRN 01/04/23 03/15/23 breath activated powder inhaler Shortness Of Breath Or Wheezing (ProAir RespiClick) alprazolam 0.25 mg tablet 0.25 mg PO QHS PRN Restless Leg(S) 01/04/23 03/15/23 lactobacillus combination no.8 3 3 cell PO DAILY 01/04/23 03/15/23 billion cell capsule multivit with minerals-iron 18 1 tablet PO DAILY 01/04/23 03/15/23 mg-folic ac 400 mcg-vit K 25 mcg tablet (Adults Multivitamin) tiotropium bromide 2.5 2 puff inhalation DAILY PRN 01/04/23 03/15/23 mcg/actuation mist for inhalation Shortness Of Breath Or Wheezing (Spiriva Respimat) prednisone 50 mg tablet 30 mg PO DAILY PRN 04/12/23 Allergies Allergy/AdvReac Type Severity Reaction Status Date / Time No Known Allergies Allergy Verified 04/12/23 13:12 Review of Systems Review of Systems: CONSTITUTIONAL: Denies fever, chills, or sweats. EYES: Right eye blurred vision?improved denies redness, or discharge. ENT: Denies rhinorrhea, congestion, sore throat, or otalgia. CARDIOVASCULAR: Denies chest pain, palpitations, or edema. RESPIRATORY: Denies cough or dyspnea. GASTROINTESTINAL: Denies abdominal pain, nausea, vomiting, or diarrhea. GENITOURINARY: Denies dysuria or hematuria. SKIN: Denies rash or itching. MUSCULOSKELETAL: Denies back pain, joint pain, or myalgia. NEUROLOGIC: Headache?resolved. Denies, numbness, dizziness, or weakness. PSYCHIATRIC: Denies anxiety or depression. [facility] Past Medical History Medical History Depression History of CVA (cerebrovascular accident) 2014 HTN (hypertension), benign Mixed hyperlipidemia Temporal arteritis Surgical History Surgical History History of surgery on wrist Social History Social History Smoking status: Never smoker Alcohol intake: current Drinks per week: 1 Substance use: never Lack of Transportation: No Lack of Food: Never True Current Housing: I Have Housing Concerned About Future Housing: No Difficulty Paying Gas/Electric Bills: No Difficulty Paying for Meds: No Currently Unemployed: No Education: High School Diploma/GED Difficulty w/ Childcare or Family Care: YES Gender identity (if verbalized by the patient): Female Spiritual care concerns: Yes Exam Narrative: GENERAL: Well-developed, well-nourished, and in no acute distress. HEAD: Normocephalic, atraumatic. Slight tenderness to palpation over the left scientology. EYES: PERRLA and EOMI. ENT: Nares clear, no rhinorrhea or epistaxis. Mucous membranes moist. Oropharynx without tonsillar hypertrophy exudate or other lesions. CHEST: Clear to auscultation. No respiratory distress. No wheezes rales or rhonchi HEART: Regular rate and rhythm. Grade 2 systolic murmur heard greatest over the aortic region. Normal peripheral pulses. ABDOMEN: Soft, nontender, nondistended, n
[2023-05-12 16:21] VITALS: BP 123/60; PULSE 71; RESP 14; O2SAT 98
== END 2023-05-12 16:22 | disposition home or self-care (01) ==
LOC: ANHED 15:46
PROVIDERS: Emergency Provider Preventive Medicine Aerospace Medicine; PCP Family Medicine
DX: M31.6 Other giant cell arteritis (principal); R51.9 Headache, unspecified; I10 Essential (primary) hypertension; E78.2 Mixed hyperlipidemia; F32.A Depression, unspecified; Z86.73 Personal history of transient ischemic attack (TIA), and cerebral infarction without residual deficits
CPT/HCPCS: 36415; 70450; 80053; 85025; 85652; 99284

== ENCOUNTER → 2023-07-12 13:21 | Outpatient (CLI) | payer OTHER, SELFPAY ==
--- NOTE | ~2023-07-12 | XR_ITS ---
EXAMINATION: XR ribs RT 2V INDICATION: Shortness of breath TECHNIQUE: 3 views of the right ribs were obtained. COMPARISON: 03/06/2023 FINDINGS: The bones are osteopenic which limits the sensitivity for fracture however no displaced rib fracture is seen. The lungs are free of acute opacities. Thoracic levoscoliosis is noted. There are multiple thoracic burst fractures. IMPRESSION: 1. No displaced rib fracture identified, sensitivity limited by osteopenia. Reviewed, dictated and finalized at location F.
--- NOTE | ~2023-07-12 | XR_ITS ---
EXAMINATION: XR chest 2V w apical lordotic 07/12/2023 13:46 INDICATION: Dyspnea. Chest pain upper chest. PROCEDURE: 3 views of the chest including apical lordotic view COMPARISON: 03/06/2023 FINDINGS: The lungs are clear. The cardiomediastinal silhouette is within normal limits. Possible sm all effusions. There are multiple thoracic compression fractures there is scoliosis. There is no pneu mothorax suspected. IMPRESSION: 1: Possible small effusions. Reviewed, dictated and finalized at location B.
== END ==
PROVIDERS: PCP Family Medicine; Visit Provider Family Medicine
DX: R06.00 Dyspnea, unspecified (principal); R07.89 Other chest pain
CPT/HCPCS: 71047; 71100

== ENCOUNTER 2023-07-23 08:44 | Emergency (ER) | payer OTHER, SELFPAY ==
[2023-07-23] VITALS (11 sets, daily range): BP systolic 137–160; BP diastolic 65–74; PULSE 86–105; RESP 11–23; TEMP 36.4; O2SAT 94–99
--- NOTE | ~2023-07-23 | US_ITS ---
US venous doppler [facility] DATE: 07/23/2023 09:44 INDICATION: Lower extremity swelling and pain TECHNIQUE: Real-time and color flow imaging and Doppler analysis of the veins of the lower extremitie s COMPARISON: None FINDINGS: The greater saphenous veins are patent. There is spontaneous and phasic flow and normal aug mentation and color flow signal and normal compression of the deep veins of both lower extremities. IMPRESSION: No evidence of deep venous thrombosis of the lower extremities Reviewed, dictated and finalized at Location A. Reviewed, dictated and finalized at location A.
--- NOTE | 2023-07-23 09:25 | ED.GENADULT ---
HPI - General Adult General Chief complaint: Extremity Problem,Nontraumatic Stated complaint: ?DVT right leg Time Seen by Provider: 07/23/23 09:02 History of Present Illness HPI narrative: Yuridia Garcia is an 82 y/o female with PMHx of Giant Cell arteritis which she has some chronic wounds to her lower extremities and has been on steroids chronically to treat it. She comes in today with concern for waking up today with new onset severe pain/ redness/ swelling to her right calf area. She expresses that she is concerned that she might have a blood clot. She denies any known injury /trauma no are of broken open skin. No fever/chest/pain/ numbness /tingling Related Data Home Medications Medication Instructions Recorded Confirmed atorvastatin 10 mg tablet 10 mg PO DAILY 11/14/22 03/15/23 albuterol sulfate 90 mcg/actuation 2 puff inhalation QID PRN 01/04/23 03/15/23 aerosol inhaler (ProAir HFA) Shortness Of Breath Or Wheezing albuterol sulfate 90 mcg/actuation 1 inh inhalation Q4-6H PRN 01/04/23 03/15/23 breath activated powder inhaler Shortness Of Breath Or Wheezing (ProAir RespiClick) alprazolam 0.25 mg tablet 0.25 mg PO QHS PRN Restless Leg(S) 01/04/23 03/15/23 lactobacillus combination no.8 3 3 cell PO DAILY 01/04/23 03/15/23 billion cell capsule multivit with minerals-iron 18 1 tablet PO DAILY 01/04/23 03/15/23 mg-folic ac 400 mcg-vit K 25 mcg tablet (Adults Multivitamin) tiotropium bromide 2.5 2 puff inhalation DAILY PRN 01/04/23 03/15/23 mcg/actuation mist for inhalation Shortness Of Breath Or Wheezing (Spiriva Respimat) prednisone 50 mg tablet 30 mg PO DAILY PRN 04/12/23 Allergies Allergy/AdvReac Type Severity Reaction Status Date / Time No Known Allergies Allergy Verified 07/23/23 10:03 Review of Systems Review of Systems: CONSTITUTIONAL: Denies fever, chills, or sweats. EYES: Denies visual changes, redness, or discharge. ENT: Denies rhinorrhea, congestion, sore throat, or otalgia. CARDIOVASCULAR: Denies chest pain, palpitations, or edema. RESPIRATORY: Denies cough or dyspnea. GASTROINTESTINAL: Denies abdominal pain, nausea, vomiting, or diarrhea. GENITOURINARY: Denies dysuria or hematuria. SKIN: Denies rash or itching. Complains of area to right calf that is painful/swollen and red that started today. MUSCULOSKELETAL: Denies back pain, joint pain, or myalgia. NEUROLOGIC: Denies headache, numbness, dizziness, or weakness. PSYCHIATRIC: Denies anxiety or depression. [facility] Past Medical History Medical History Depression History of CVA (cerebrovascular accident) 2015 HTN (hypertension), benign Mixed hyperlipidemia Temporal arteritis Surgical History Surgical History History of surgery on wrist Social History Social History Smoking status: Never smoker Alcohol intake: current Drinks per week: 1 Substance use: never Lack of Transportation: No Lack of Food: Never True Current Housing: I Have Housing Concerned About Future Housing: No Difficulty Paying Gas/Electric Bills: No Difficulty Paying for Meds: No Currently Unemployed: No Education: High School Diploma/GED Difficulty w/ Childcare or Family Care: YES Gender identity (if verbalized by the patient): Female Spiritual care concerns: Yes Exam Narrative: GENERAL: Well-appearing, well-nourished, and in no acute distress. HEAD: Normocephalic, atraumatic. EYES: PERRLA and EOMI. ENT: Nares clear, no rhinorrhea or epistaxis. Mucous membranes moist. Oropharynx without tonsillar hypertrophy exudate or other lesions. Bilateral TMs pearly [place] nonbulging NECK: Supple. No adenopathy or masses. No carotid bruits or JVD CHEST: Clear to auscultation. No respiratory distress. No wheezes rales or rhonchi HEART: Regular rate and rhythm. No murmur
[2023-07-23 09:33] LABS: Basophils Absolute Auto 0.1 K/mm3 (0.0-0.1); Basophils Percent Auto 0.4 % (0.2-1.2); Eosinophils Percent Auto 0.1 % (0-4.4); Hematocrit 38.9 % (37.0-47.0); Hemoglobin 12.7 g/dL (12.0-15.0); Immature Granulocyte Absolute 0.13 K/mm3 (0.00-0.031); Immature Granulocyte Percent A 0.7 % (0-0.5); Lymphocytes Absolute Auto 1.48 K/mm3 (0.9-3.2); Lymphocytes Percent Auto 7.6 % (18.3-44.2); Mean Corpuscular HGB Conc 32.6 g/dl (32-36); Mean Corpuscular Hemoglobin 30.8 pg (26-34); Mean Corpuscular Volume 94.2 fl (80-100); Mean Platelet Volume 8.8 fl (7.4-10.4); Monocytes Absolute Auto 1.2 K/mm3 (0.1-0.6); Monocytes Percent Auto 6.2 % (2.6-8.5); Neutrophils Absolute Auto 16.6 K/mm3 (1.3-6.7); Platelet Count Result 245 k/mm3 (150-375); Red Blood Count 4.13 M/mm3 (4.2-5.4); Red Cell Distribution Width 14.4 % (11.5-14.5); White Blood Count 19.5 K/mm3 (4.5-10.0)
[2023-07-23 09:43] LABS: Anion Gap 3 mmol/L (8-16); Blood Urea Nitrogen 19 mg/dL (7-17); Calcium 9.1 mg/dL (8.4-10.2); Carbon Dioxide 31 mmol/L (22-30); Chloride 102 mmol/L (98-107); Estimated CRCL calculation 32 ml/min; Estimated Glomerular Filt Rate > 60; Glucose 119 mg/dL (65-110); Potassium 4.2 mmol/L (3.4-5.0); Sodium 136 mmol/L (137-145)
[2023-07-23] MEDS: CEPHALEXIN 500 MG CAPSULE PO (10:55)
[2023-07-23] MEDS: SULFAMETHOXAZOLE/TRIMETHOPRIM 800/160 MG DS TABLET 1 TAB PO (10:55)
== END 2023-07-23 10:55 | disposition home or self-care (01) ==
PROVIDERS: Emergency Provider Nurse Practitioner Family; PCP Family Medicine
DX: L03.115 Cellulitis of right lower limb (principal); Z03.89 Encounter for observation for other suspected diseases and conditions ruled out; M31.6 Other giant cell arteritis; I10 Essential (primary) hypertension; E78.2 Mixed hyperlipidemia; Z86.73 Personal history of transient ischemic attack (TIA), and cerebral infarction without residual deficits; F32.A Depression, unspecified; Z79.84 Long term (current) use of oral hypoglycemic drugs; Z79.82 Long term (current) use of aspirin
CPT/HCPCS: 36415; 80048; 85025; 93970; 99284; A9270

== ENCOUNTER 2024-01-16 05:55 | Inpatient (IN) | payer OTHER, SELFPAY ==
[2024-01-16] VITALS (10 sets, daily range): BP systolic 127–183; BP diastolic 50–89; PULSE 75–88; RESP 15–21; TEMP 36.2–37.2; O2SAT 92–100; BMI 16.9
--- NOTE | ~2024-01-16 | XR_ITS ---
EXAM: XR abdomen gastric tube rechec DATE: 01/19/2024 20:55 HISTORY: ng placement re adjustment . COMPARISON: Same date at 6:53 PM. FINDINGS: Senescent/interstitial change and atelectasis in the lung bases. Possible small left pleur al effusion. Unchanged gas pattern. Interval advancement of the NG tube, tip and side port now projec t over the expected location of the stomach. IMPRESSION: NG tube, in good position. Reviewed, dictated and finalized at location K. IMPRESSION: NG tube, in good position.
--- NOTE | ~2024-01-16 | XR_ITS ---
XR chest PICC line DATE: 01/19/2024 10:26 INDICATION: PICC line placement TECHNIQUE: Portable AP chest on January 19, 2024 at 1003 hours COMPARISON: January 19, 2024 portable AP chest at 1006 hours FINDINGS: Right upper extremity PIC catheter distal tip is directed approximately 1 cm cephalad into the internal jugular vein. Cardiomegaly. Aortic calcification, ectasia and unfolding. Mild infiltrate or atelectasis in the lowe r lung zones. IMPRESSION: Right upper extremity PIC catheter extends approximately 1 cm cephalad into the right int ernal jugular vein Reviewed, dictated and finalized at [facility]. Reviewed, dictated and finalized at location B. IMPRESSION: Right upper extremity PIC catheter extends approximately 1 cm cepha lad into the right internal jugular vein
--- NOTE | ~2024-01-16 | US_ITS ---
EXAMINATION: US paracentesis abd w/image DATE: 01/18/2024 13:25 INDICATION: Ascites. TECHNIQUE: The procedure and its risks, benefits, and alternatives were discussed with the patient. P otential risks discussed included bleeding and infection. The skin was prepped and draped in sterile fashion. 1% lidocaine was used for local anesthesia. Under ultrasound guidance, a 5 Fr catheter with trochar was advanced into the ascites in the right upper quadrant. Fluid was aspirated. The catheter was removed, and a dressing was applied. There were no immediate complications. FINDINGS: Ultrasound images demonstrate ascites and the catheter within the fluid. IMPRESSION: 1. Successful ultrasound-guided paracentesis yielding 100 mL of red-conley fluid. Reviewed, dictated and finalized at location A.
--- NOTE | ~2024-01-16 | CT_ITS ---
EXAMINATION: CT guide absc cath placement DATE: 01/23/2024 14:57 INDICATION: Intra-abdominal abscess. TECHNIQUE: The procedure including the risks, benefits, and alternatives was discussed with the patie nt. Risks discussed included bleeding and infection. The patient understood the risks and benefits an d agreed to proceed. The existing percutaneous drain was cut and removed. The skin overlying the abd omen was prepped and draped in usual sterile fashion. Anesthetic was administered with 1% lidocaine subcutaneously. 100 mcg fentanyl IV was given for pain control. An 18 gauge trochar needle was insert ed into the intra-abdominal abscess with CT guidance. The needle was exchanged over a wire for 6 Fren ch 8 Moldovan dilators and then for an 8.5 Moldovan pigtail catheter. The catheter was stitched to the sk in, and a sterile dressing was applied. The mA was adjusted according to patient size. Iterative christopher nstruction technique was employed. The dose-length product was 680.56 mGy-cm. There were no immediate complications. FINDINGS: CT images demonstrate the needle and wire within the intra-abdominal abscess. The final charito ges demonstrate the percutaneous drain inferior to the abscess. IMPRESSION: 1. CT-guided abscess drain placement. The final images demonstrate the drain inferior to the abscess. I decided to leave the drain in this position rather than attempt further manipulations. Reviewed, dictated and finalized at location A. IMPRESSION: 1. CT-guided abscess drain placement. The final images demonstrate the drain in ferior to the abscess. I decided to leave the drain in this position rather sammi n attempt further manipulations.
--- NOTE | ~2024-01-16 | CT_ITS ---
CT of the Abdomen and Pelvis: Indication: Abdominal pain Technique: 2.5 mm axial scans were obtained through the abdomen and pelvis following intravenous adm inistration of 98 cc of Omnipaque 350. Dose reduction technique was used on this scan by utilizing au tomated exposure control and iterative reconstruction technique. The dose-length product (DLP) was 17 9.55 mGy-cm. Findings: Scans through the lung bases are unremarkable. The liver, spleen, pancreas, gallbladder, adrenals and kidneys are within normal limits. There are at herosclerotic calcifications of the aorta. No lymphadenopathy. There is minimal perihepatic ascites. No bowel obstruction. There is probable extensive wall thickening of large and small bowel loops with diffuse mesenteric edema and small amount of ascites. Suspected abscess in the mid abdomen measuring approximately 3.5 x 2.8 x 2.8 cm (axial images 89-100). Images through the pelvis were performed. Urinary bladder unremarkable. No pelvic mass. Minimal pelvi c ascites. There are multiple compression fractures of the spine, involving T9, T11, T12, L1, and L3. 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 Impression: Probable extensive enterocolitis with suspected 3.5 x 2.8 x 2.7 cm irregular central abdominal absces s. Multiple compression fractures in the spine. Correlate for any possibility of myeloma versus osteopor otic compression fractures. Small amount of abdominopelvic ascites. Reviewed, dictated and finalized at location . Impression: Probable extensive enterocolitis with suspected 3.5 x 2.8 x 2.7 cm irregular ce ntral abdominal abscess. Multiple compression fractures in the spine. Correlate for any possibility of m yeloma versus osteoporotic compression fractures. Small amount of abdominopelvic ascites.
--- NOTE | ~2024-01-16 | XR_ITS ---
EXAMINATION: XR chest 1V portable Exam Date/Time: 01/16/2024 20:42 CDT HISTORY: shortness of breath, Comparison: None. RESULT: Lines, tubes, and devices: None. Lungs and pleura: Mild diffuse reticular opacities. Subsegmental right basilar airspace disease. Mil d bilateral costophrenic angle blunting. Cardiomediastinal silhouette: Stable. Other: No acute osseous or upper abdominal finding. IMPRESSION: Subsegmental basilar atelectasis/consolidation. Mild interstitial edema. Small bilateral effusions. Reviewed, dictated and finalized at location K.
--- NOTE | ~2024-01-16 | XR_ITS ---
XR chest PICC line DATE: 01/19/2024 10:26 INDICATION: PICC line placement second attempt TECHNIQUE: Portable AP chest on January 19, 2024 at 1005 hours COMPARISON: January 19, 2024 portable AP chest at 1003 hours FINDINGS: Right upper stomach the catheter extends approximately 9 cm cephalad in the right internal jugular vein. Cardiomegaly. Aortic calcification, ectasia and unfolding. Mild infiltrate or atelectasis is suggested in the lower lung zones. IMPRESSION: Right upper extremity PIC catheter extends approximately 9 cm cephalad in the right inter nal jugular vein Reviewed, dictated and finalized at [facility]. Reviewed, dictated and finalized at location B. IMPRESSION: Right upper extremity PIC catheter extends approximately 9 cm cepha lad in the right internal jugular vein
--- NOTE | ~2024-01-16 | CT_ITS ---
EXAMINATION: CT guide absc cath placement DATE: 01/18/2024 12:55 INDICATION: Intra-abdominal abscess. TECHNIQUE: The procedure including the risks, benefits, and alternatives was discussed with the patie nt. Risks discussed included bleeding and infection. The patient understood the risks and benefits an d agreed to proceed. The patient was confirmed to be receiving appropriate antibiotic coverage. The skin overlying the abdomen was prepped and draped in usual sterile fashion. Anesthetic was administe red with 1% lidocaine subcutaneously. 50 mg fentanyl IV was given for pain control. An 18 gauge troch ar needle was inserted into the intra-abdominal abscess with CT guidance. The needle was exchanged ov er a wire for 6 Angolan and 8 Angolan dilators and then for an 8.5 Angolan pigtail catheter. The cathete r was stitched to the skin, and a sterile dressing was applied. The mA was adjusted according to corbin ent size. Iterative reconstruction technique was employed. The dose-length product was 462.63 mGy-cm. There were no immediate complications. FINDINGS: CT images demonstrate the catheter within the intra-abdominal abscess. 5 mL fluid was aspir ated for testing. IMPRESSION: 1. Successful CT-guided intra-abdominal abscess drainage. 2. 5 mL obtained, opaque fluid was sent for aerobic and anaerobic cultures. Reviewed, dictated and finalized at location A.
--- NOTE | ~2024-01-16 | XR_ITS ---
EXAMINATION: XR chest PICC line DATE: 01/19/2024 10:49 INDICATION: Central line placement. TECHNIQUE: A single frontal view of the chest was obtained. COMPARISON: Chest single view at 10:01 AM FINDINGS: There is mild atelectasis at the lung bases. No pleural effusion or pneumothorax. The heart size is normal. A left upper extremity peripherally inserted central venous catheter (PICC) is seen with tip in the superior vena cava. IMPRESSION: 1. PICC tip in the superior vena cava. Reviewed, dictated and finalized at location A.
--- NOTE | ~2024-01-16 | CT_ITS ---
EXAMINATION: CT abdomen pelvis w con DATE: 01/22/2024 08:39 INDICATION: Right abdominal pain. Intra-abdominal abscess. TECHNIQUE: Computed tomography (CT) of the abdomen and pelvis was performed with 100 mL Omnipaque 350 intravenous contrast. Automated exposure control and iterative reconstruction technique were employe d. The dose-length product was 235.52 mGy-cm. COMPARISON: CT abdomen and pelvis 01/17/2024 FINDINGS: The visualized portions of the lung bases demonstrate small pleural effusions and mild depe ndent atelectasis. The heart size is normal. No pericardial effusion. There is a catheter tip at supe rior cavoatrial junction. The liver is normal. The gallbladder is normal in size and contains contras t. There is a 4 mm cyst in the spleen. The pancreas and adrenal glands are normal. There is a [address] in the right kidney. There is cortical thinning of left kidney. There is calcified atherosclerosis of the aorta and many of the other arteries. There is diverticulosis of the colon without evidence o f diverticulitis. The appendix is dilated to 9 mm with wall thickening and discontinuous wall. There is a periappendiceal abscess measuring 4.7 x 2.6 x 2.0 cm. The percutaneous drain is 2 cm lateral to the abscess. There is wall thickening of many loops of small bowel, consistent with enteritis. There is edema of the intra-abdominal fat and body wall. There is a small volume of ascites. There are no p athologically enlarged lymph nodes. There is severe lumbar spondylosis. There are old fractures of L1 and L3 vertebral bodies. There are age-indeterminate burst fractures of T11 and T12. IMPRESSION: 1. Ruptured acute appendicitis. 2. 4.7 x 2.6 x 2.0 cm perihepatic abscess, improved from 5.9 x 4.2 x 5.3 cm on 01/16/2023. The percutan eous drain has been partially withdrawn in is no longer in the abscess. 3. Enteritis. 4. Small volume of ascites. 5. Small pleural effusions. 6. Age-indeterminant burst fractures of T11 and T12, stable from 01/17/2024. Reviewed, dictated and finalized at location A. IMPRESSION: 1. Ruptured acute appendicitis. 2. 4.7 x 2.6 x 2.0 cm perihepatic abscess, improved from 5.9 x 4.2 x 5.3 cm on 01/16/2023. The percutaneous drain has been partially withdrawn in is no longer i n the abscess. 3. Enteritis. 4. Small volume of ascites. 5. Small pleural effusions. 6. Age-indeterminant burst fractures of T11 and T12, stable from 01/17/2024.
--- NOTE | ~2024-01-16 | XR_ITS ---
Supine and upright views of the abdomen Clinical history: Small bowel obstruction COMPARISON: 01/19/2024 Findings: Right lower quadrant percutaneous drain present. Bowel gas pattern is nonspecific. No evide nce for obstruction or free air. No abnormal mass lesion or calcification is seen. Osseous structures are intact. Impression: Nonspecific bowel gas pattern. Right lower quadrant percutaneous drain. Reviewed, dictated and finalized at [facility]. Impression: Nonspecific bowel gas pattern. Right lower quadrant percutaneous drain.
--- NOTE | ~2024-01-16 | XR_ITS ---
EXAMINATION: XR abdomen/kub 1V DATE: 01/19/2024 09:29 INDICATION: Abdominal distention and pain. TECHNIQUE: A supine view of the abdomen on 2 radiographs was obtained. COMPARISON: CT abdomen and pelvis 01/18/2024 FINDINGS: There are multiple dilated loops of small bowel. The colon is normal in caliber. There is a percutaneous drain in expected position. IMPRESSION: 1. Dilated small bowel, consistent with small bowel obstruction. Reviewed, dictated and finalized at location A.
--- NOTE | ~2024-01-16 | XR_ITS ---
XR chest PICC line DATE: 01/19/2024 10:26 INDICATION: PICC line placement third attempt TECHNIQUE: Portable AP chest on January 19, 2024 1008 hours COMPARISON: January 19, 2024 portable AP chest radiograph FINDINGS: Right impression a PIC catheter extends approximately 7.5 cm cephalad in the right internal jugular vein. Cardiomegaly. Aortic calcification and tortuosity. Minimal infiltrate or atelectasis is suggested the lung bases. IMPRESSION: Right upper extremity PIC catheter extends approximately 7.5 cm cephalad into the right i nternal jugular vein Reviewed, dictated and finalized at [facility]. Reviewed, dictated and finalized at location B. IMPRESSION: Right upper extremity PIC catheter extends approximately 7.5 cm cep halad into the right internal jugular vein
--- NOTE | ~2024-01-16 | CT_ITS ---
EXAMINATION: CT chest abdomen pelvis w con DATE: 01/17/2024 09:50 INDICATION: Abdominal abscess. TECHNIQUE: Computed tomography (CT) of the chest, abdomen, and pelvis was performed with 92 mL Omnipa que 350 intravenous contrast. Automated exposure control and iterative reconstruction technique were employed. The dose-length product was 244.52 mGy-cm. COMPARISON: CT abdomen and pelvis 01/16/2024 FINDINGS: CHEST CT: The lungs demonstrate mild atelectasis. There is smooth septal thickening bilaterally, consistent wit h mild pulmonary edema. There are small pleural effusions. The heart size is normal. No pericardial e ffusion. There are age-indeterminate burst fractures of T5-T9, T11, and T12. ABDOMEN/PELVIS CT: The liver demonstrates periportal edema. The gallbladder is normal in size and contains contrast. The spleen, pancreas, adrenal glands, and right kidney are normal. There is cortical thinning of left ki dney. There is diverticulosis of the colon without evidence of diverticulitis. There are multiple dil ated loops of small bowel. In the expected area of the pelvis appendix, there is a 5.9 x 4.2 x 3.5 cm abscess. Calcifications in this area may be appendicoliths. There is a small volume of ascites with peritoneal thickening and enhancement. There are no pathologically enlarged lymph nodes. There is randy cified atherosclerosis of the aorta and many of the other arteries. There is severe spondylosis. Ther e are old fractures of L1 and L3 vertebral bodies. IMPRESSION: 1. Worsened 5.9 x 4.2 x 5.3 cm abscess in the expected area of the appendix. 2. Worsened small volume of ascites with peritoneal thickening and enhancement, consistent with perit onitis. 3. Dilated small bowel with transition point in the terminal ileum, likely a partial small bowel obst ruction. 4. Mild pulmonary edema with small pleural effusions. 5. Age-indeterminate burst fractures of T5-T9, T11, and T12. Reviewed, dictated and finalized at location A. IMPRESSION: 1. Worsened 5.9 x 4.2 x 5.3 cm abscess in the expected area of the appendix. 2. Worsened small volume of ascites with peritoneal thickening and enhancement, consistent with peritonitis. 3. Dilated small bowel with transition point in the terminal ileum, likely a pa rtial small bowel obstruction. 4. Mild pulmonary edema with small pleural effusions. 5. Age-indeterminate burst fractures of T5-T9, T11, and T12.
--- NOTE | ~2024-01-16 | XR_ITS ---
EXAM: XR abdomen gastric tube insert DATE: 01/19/2024 18:58 HISTORY: NG tube placement . COMPARISON: 01/19/2024. FINDINGS: Bilateral mild costophrenic angle blunting. Air-filled loops of nondilated large bowel in the upper abdomen. NG tube, tip over the stomach, side port near the GE junction. Left upper extremit y PICC terminating at the cavoatrial junction. IMPRESSION: Somewhat shallow NG tube position, consider advancing by 4 cm. Small bilateral pleural ef fusions. Reviewed, dictated and finalized at location K. IMPRESSION: Somewhat shallow NG tube position, consider advancing by 4 cm. Smal l bilateral pleural effusions.
--- NOTE | 2024-01-16 06:16 | ED.ABDPAIN ---
HPI - Abdominal Pain General Chief Complaint: Abdominal Pain <Bijal Dean MD - Last Filed: 01/16/24 07:14> Stated Complaint: CP, ABD PAIN, NAUSEA <Bijal Dean MD - Last Filed: 01/16/24 07:14> Time Seen by Provider: 01/16/24 06:06 <Bijal Dean MD - Last Filed: 01/16/24 07:14> History of Present Illness HPI narrative: Patient is an 83-year-old female who presents to the emergency department this morning complaining of lower abdominal pain. Patient states that she has been having some abdominal pain for the past 4 days and saw her PCP yesterday who initially thought that the pain was due to constipation. Patient tried an enema at home and states that since then she has been having loose stools stated that yesterday for a few hours she was in the bathroom non-stop having diarrhea. She denies any melena or hematochezia, any fevers or chills. Patient also denies any previous abdominal surgeries. She admits to nausea and vomiting and patient was administered 4 mg of IV Zofran by EMS prior to arrival, however, patient states that the Zofran did not alleviate her nausea. Patient denies any dysuria or hematuria but admits that she has been going to the bathroom to urinate. 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 There are no other modifying, alleviating, or precipitating factors at this time. <Bijal Dean MD - Last Filed: 01/16/24 07:14> Related Data Home Medications: Home Medications Medication Instructions Recorded Confirmed atorvastatin 10 mg tablet 10 mg PO DAILY 11/14/22 03/15/23 albuterol sulfate 90 mcg/actuation 2 puff inhalation QID PRN 01/04/23 03/15/23 aerosol inhaler (ProAir HFA) Shortness Of Breath Or Wheezing albuterol sulfate 90 mcg/actuation 1 inh inhalation Q4-6H PRN 01/04/23 03/15/23 breath activated powder inhaler Shortness Of Breath Or Wheezing (ProAir RespiClick) lactobacillus combination no.8 3 3 cell PO DAILY 01/04/23 03/15/23 billion cell capsule multivit with minerals-iron 18 1 tablet PO DAILY 01/04/23 03/15/23 mg-folic ac 400 mcg-vit K 25 mcg tablet (Adults Multivitamin) tiotropium bromide 2.5 2 puff inhalation DAILY PRN 01/04/23 03/15/23 mcg/actuation mist for inhalation Shortness Of Breath Or Wheezing (Spiriva Respimat) cholecalciferol (vitamin D3) 125 125 mcg PO WEEKLY 12/11/23 mcg (5,000 unit) capsule prednisone 50 mg tablet 5 mg PO DAILY PRN 12/11/23 folic acid 1 mg tablet 1 mg PO DAILY 01/15/24 <Bijal Dean MD - Last Filed: 01/16/24 07:14> Allergies/Adverse Reactions: Allergies Allergy/AdvReac Type Severity Reaction Status Date / Time No Known Allergies Allergy Verified 01/15/24 13:12 <Bijal Dean MD - Last Filed: 01/16/24 07:14> Review of Systems Review of Systems: All systems are reviewed and are negative unless stated otherwise in the HPI. <Bijal Dean MD - Last Filed: 01/16/24 07:14> PMFSH Past Medical History Medical History: Medical History Constipation Depression History of CVA (cerebrovascular accident) 2015 HTN (hypertension), benign Mixed hyperlipidemia Night sweats Onychomycosis Temporal arteritis <Bijal Dean MD - Last Filed: 01/16/24 07:14> Surgical History Surgical History: Surgical History History of surgery on wrist <Bijal Dean MD - Last Filed: 01/16/24 07:14> Social History Social History: Social History Smoking status: Never smoker Alcohol intake: current Drinks per week: 1 Substance use: never Lack of Transportation: No Lack of Food: Never True Current Housing: I Have Housing Concerned About Future Housing: No Difficulty Paying Gas/Electric Bills: No
[2024-01-16] MEDS: SODIUM CHLORIDE 0.9% IV 1,000 ML 100 ML IV CONT (06:20)
[2024-01-16] MEDS: ONDANSETRON INJ 4 MG/2 ML VIAL IV PUSH ×2 (06:21→07:45)
[2024-01-16] MEDS: MORPHINE SULFATE (*CRX) 2 MG/ML INJ IV PUSH ×4 (06:23→10:13)
[2024-01-16 06:44] LABS: Lactic Acid Reflex 1.7 mmol/L (0.7-2.0)
[2024-01-16] MEDS: METOCLOPRAMIDE HCL INJ 10 MG/2 ML VIAL IV PUSH (06:44)
[2024-01-16 06:45] LABS: Alanine Aminotransferase 22 U/L (6-35); Albumin Level 4.1 g/dL (3.5-5.1); Alkaline Phosphatase 86 U/L (38-126); Anion Gap 7 mmol/L (4-12); Aspartate Amino Transferase 23 U/L (14-36); Bilirubin,Total 1.2 mg/dL (0.2-1.3); Blood Urea Nitrogen 21 mg/dL (7-17); Calcium 9.2 mg/dL (8.4-10.2); Carbon Dioxide 28 mmol/L (22-30); Chloride 103 mmol/L (98-107); Estimated CRCL calculation 41 ml/min; Estimated Glomerular Filt Rate > 60; Glucose 130 mg/dL (65-110); Lipase 65 U/L (23-300); Potassium 3.2 mmol/L (3.4-5.0); Sodium 138 mmol/L (137-145)
[2024-01-16 06:54] LABS: Basophils Percent Auto 0.5 % (0.2-1.2); Eosinophils Percent Auto 0.4 % (0-4.4); Hematocrit 42.2 % (37.0-47.0); Hemoglobin 14.3 g/dL (12.0-15.0); Immature Granulocyte Absolute 0.04 K/mm3 (0.00-0.031); Immature Granulocyte Percent A 0.5 % (0-0.5); Lymphocytes Absolute Auto 2.53 K/mm3 (0.9-3.2); Lymphocytes Percent Auto 29.6 % (18.3-44.2); Mean Corpuscular HGB Conc 33.9 g/dl (32-36); Mean Corpuscular Hemoglobin 31.5 pg (26-34); Mean Platelet Volume 9.5 fl (7.4-10.4); Monocytes Absolute Auto 0.7 K/mm3 (0.1-0.6); Monocytes Percent Auto 8.4 % (2.6-8.5); Neutrophils Absolute Auto 5.2 K/mm3 (1.3-6.7); Neutrophils Percent Auto 60.6 % (45.5-73.1); Platelet Count Result 257 k/mm3 (150-375); Red Blood Count 4.54 M/mm3 (4.2-5.4); Red Cell Distribution Width 12.7 % (11.5-14.5); White Blood Count 8.6 K/mm3 (4.5-10.0)
[2024-01-16 08:05] LABS: Appearance Urine Clear (Clear); Bacteria Urine None Seen /hpf; Bilirubin Urine Negative (Negative); Blood Urine Negative (Negative); Color Urine Yellow (Yellow); Glucose Urine UA Negative (Negative); Ketones Urine Trace mg/dL (Negative); Leukocyte Esterase Ur Negative LEU/UL (Negative); Nitrate Urine Negative (Negative); Protein Urine 1+ mg/dL (Negative); RBC Urine 0-2 /hpf (0-2); Squamous Epithelial Cell Urine None Seen /hpf (Few); Urobilinogen Urine 0.2 mg/dL (<2.0); WBC Urine 0-5 /hpf (0-3); pH Urine 5.5 (5.0-9.0)
[2024-01-16 08:12] LABS: Add Urine Microscopic? YES; Specific Grav Ur 1.043 (1.001-1.035)
[2024-01-16] MEDS: PIPERACILLN/TAZ 3.375GM/NS50ML 3.375 GM/50 ML BAG IVPB ×3 (08:39→20:51)
--- NOTE | 2024-01-16 09:54 | ADMGEN ---
This patient, Yuridia Garcia, was admitted to [facility] Surg Room 314-01. Patient/family oriented to hospital policies and general routines including ID bracelet, bed and alarms, visiting hours, pain management, procedures, bathroom and other care routines, personal items, smoking policy, room service/diet, and visiting hours. Information on how to activate the Rapid Response Team has been discussed. Patient/Family are encouraged to report perceived risks to care and to ask questions if they do not understand what they are told or what they should do.
[2024-01-16] MEDS: LACTATED RINGERS 1,000 ML 125 ML IV CONT (10:13)
--- NOTE | 2024-01-16 12:46 | ECG_ITS ---
Measurements Intervals [place] Rate: 66 P: 80 WV: 180 QRS: -54 QRSD: 109 T: 36 QT: 394 QTc: 413 Interpretive Statements SINUS RHYTHM WITH OCCASIONAL SUPRAVENTRICULAR PREMATURE COMPLEXES LEFT ANTERIOR FASCICULAR BLOCK [QRS AXIS <= -45, QR IN I, RS IN II] ANTEROSEPTAL MYOCARDIAL INFARCTION , OF INDETERMINATE AGE [40+ ms Q WAVE IN V1-V4] COMPARED TO ECG 01/03/2023 17:23:26 LEFT ANTERIOR FASCICULAR BLOCK NOW PRESENT MYOCARDIAL INFARCT FINDING NOW PRESENT Electronically Signed On 01-16-2024 14:50:38 CDT by Jj Rankin M.D.
--- NOTE | 2024-01-16 13:15 | PM.IMHP ---
H&P: HPI History of Present Illness Date/Time: 01/16/24 13:15 Chief Complaint: Abdominal pain. Narrative: This is an 83-year-old female with history of stroke, hypertension, dyslipidemia, giant cell arteritis, asthma, and depression who presented to the emergency department for evaluation of abdominal pain. The patient provides the following history. She developed lower abdominal discomfort approximately 4 days ago which she initially attributed to constipation. Since administering herself an enema yesterday she has had nonstop diarrhea. Her appetite has been poor due to ongoing nausea. She has also had several episodes of nonbilious and nonbloody emesis. Her abdomen has become increasingly painful and distended and she also endorses nausea and vomiting. She reports feeling as though she cannot take a deep breath with her right lung. She denies fever, chills, chest and pleuritic pain, shortness of breath, cough hematemesis, melena, and hematochezia. She denies sick contacts, recent travel, and recent antibiotic use. In the ED: She was afebrile on arrival with stable but slightly elevated blood pressures. Labs were significant for WBC count of 8.6, hemoglobin 14.3, hematocrit 42.2, sodium 138, potassium 3.2, BUN 21, creatinine 0.60, glucose 130, lactic acid 1.7. Urine was concentrated with 1+ protein and trace ketones. CT of the abdomen and pelvis showed probable extensive enterocolitis with a suspected 3.5 x 2.8 x 2.7 irregular central abdominal abscess. She received IV fluids, antiemetics, and analgesics, and antibiotics in the ED and she is being admitted in this setting for further treatment and GI and surgery consultation. Of note, she was started on prednisone 60 mg daily sometime last year for her giant cell arteritis which has been progressively weaned. She is currently on 3 mg prednisone a day and in the next week or so is supposed to drop to 2 mg a day. She was previously on methotrexate but had issues with that and is now on Actemra of which she is due to take her next dose MondayJanuary 16. She is very worried about missing these medications and has been trying to get the hospitalist service in touch with her tack welder, Dr. Vidal Escobedo with [facility], to discuss the best course of action. Review of Systems Review of Systems: Twelve systems were reviewed and are negative except for as per HPI. [facility] Past Medical History Medical History Anxiety Asthma Cerebrovascular accident (2015) Chronic steroid use Depression Hearing loss Hypertension Mixed hyperlipidemia Temporal arteritis Type 2 diabetes mellitus Surgical History Surgical History History of surgery on wrist History of tonsillectomy Family History Family History Mother Renal failure Sibling Heart attack Social History Social History (Updated 01/16/24 @ 20:59 by Amarilis Mejía PA-C) Social History: Surrogate medical decision maker: Adryan Garcia, son. Code status: Full code. Smoking status: Never smoker Alcohol intake: current Drinks per week: 2 Substance use: never Substance use type: does not use Do You Feel Safe in your Home?: Yes Lack of Transportation: No Lack of Food: Never True Current Housing: I Have Housing Concerned About Future Housing: No Difficulty Paying Gas/Electric Bills: No Difficulty Paying for Meds: No Currently Unemployed: No Education: Trade/Vocational Certificate Difficulty w/ Childcare or Family Care: No Additional living arrangements comments: Lives with in [place]; he suffers from Alzheimer's. Spiritual care concerns: No Meds Home Medications and Allergies Home Medications Medication Instructions Recorded Confirmed Type atorvastatin 10 mg tablet 5 mg PO DAILY 11/14/22 01/16/24 History losartan 5
[2024-01-16] MEDS: POTASSIUM CHLORIDE INJ 40 MEQ in SODIUM CHLORIDE 0.9% IV 500 ML 130 MEQ IVPB (16:07)
[2024-01-16 17:34] LABS: Glucose Point of Care 132 mg/dl (65-105)
--- NOTE | 2024-01-16 18:05 | PM.CNGS ---
Assessment and Plan Assessment and plan (1) Enterocolitis: Code(s): K52.9 - Noninfective gastroenteritis and colitis, unspecified Status: Acute Assessment and Plan: I have reviewed the CT and discussed the findings with the patient. She has evidence of enterocolitis. She has been placed on broad-spectrum IV antibiotics and bowel rest. Her lactate level is normal and there were no signs pneumatosis or perforation on the CT. Will continue monitoring with serial abdominal exams. Discussed with patient that surgery would be reserved for signs of impending perforation, ischemic bowel, or worsening infection. Will continue to follow along with patient closely. (2) Umbilical hernia without obstruction and without gangrene: Code(s): K42.9 - Umbilical hernia without obstruction or gangrene Status: Acute (3) Chronic steroid use: Status: Acute (4) Temporal arteritis: Code(s): M31.6 - Other giant cell arteritis Status: Acute (5) Type 2 diabetes mellitus: Code(s): E11.9 - Type 2 diabetes mellitus without complications Status: Acute History of Present Illness Consult details Consult date: 01/16/24 Reason for consult: abdominal pain Requesting physician: Jaymie Ballesteros MD Narrative: This is an 83-year-old woman who I am asked to see for abdominal pain. The patient states that she has been having pain for the last several days. She was describing that she is on an immunosuppressant for her giant cell arteritis. She had labs drawn last week and was noted to have an elevated white blood count. She followed up with her primary care physician on Monday who felt that she might be constipated. She was instructed to do a fleets enema and magnesium citrate and this then began causing extensive diarrhea. She has been having some abdominal pain but states that she is used to experiencing a lot of different pains. In the emergency department a CT of her abdomen and pelvis was performed and this showed evidence of probable extensive enterocolitis with suspected small central abdominal abscess. Patient was then admitted for further treatment. She has been placed on broad-spectrum antibiotics and is currently NPO. Patient denies any prior history of symptoms like this. She is still having some abdominal pain since being admitted but denies any nausea or vomiting. Review of Systems Review of Systems: All systems reviewed & are unremarkable except as noted in HPI and below Constitutional: Constitutional: Denies chills and Denies fever(s) Eyes: Eyes: Denies change in vision ENT: Denies hearing loss, Denies neck pain and Denies sore throat Cardiovascular: Cardiovascular: Denies chest pain and Denies dyspnea Respiratory: Respiratory: Denies cough, Denies dyspnea and Denies wheezing Gastrointestinal: Gastrointestinal: Reports as per HPI Genitourinary: Genitourinary: Denies hematuria and Denies dysuria Musculoskeletal: Musculoskeletal: Denies arthralgias, Denies joint swelling and Denies neck pain Allergic/Immunologic: Allergic/Immunologic: Denies wheezing [facility] Past Medical History Medical History (Updated 01/16/24 @ 18:13 by Spencer Daniels DO) Anxiety Asthma Cerebrovascular accident (2015) Chronic steroid use Depression Hearing loss Hypertension Mixed hyperlipidemia Temporal arteritis Type 2 diabetes mellitus Surgical History Surgical History (Updated 01/16/24 @ 14:35 by Amarilis Mejía PA-C) History of surgery on wrist History of tonsillectomy Family History Family History Mother Renal failure Sibling Heart attack Social History Social History (Updated 01/16/24 @ 14:39 by Amarilis Mejía PA-C) Social History: Surrogate medical decision maker: Adryan Garcia, son. Code status: Full code. Smoking status: Never smoker Alcohol intake: current Drinks per week: 2 Substance use: never
[2024-01-16] MEDS: diphenhydrAMINE HCl INJ 50 MG/ML VIAL 12.5 MG IV PUSH (22:01)
[2024-01-17 00:03] LABS: Lactic Acid Reflex 1.6 mmol/L (0.7-2.0)
[2024-01-17 00:06] LABS: Anion Gap 6 mmol/L (4-12); Blood Urea Nitrogen 20 mg/dL (7-17); Calcium 8.5 mg/dL (8.4-10.2); Carbon Dioxide 25 mmol/L (22-30); Chloride 105 mmol/L (98-107); Estimated CRCL calculation 41 ml/min; Estimated Glomerular Filt Rate > 60; Glucose 128 mg/dL (65-110); Magnesium 2.3 mg/dL (1.6-2.3); Potassium 4.4 mmol/L (3.4-5.0); Sodium 136 mmol/L (137-145)
[2024-01-17 00:11] LABS: NT Pro B Type Natriuretic Pept 4810 pg/mL (19.9-100)
[2024-01-17 00:17] LABS: Glucose Point of Care 124 mg/dl (65-105)
[2024-01-17 00:19] LABS: Procalcitonin 12.8 ng/mL
[2024-01-17 00:33] LABS: CRP 14.7 mg/dL (<1.0)
[2024-01-17] MEDS: SODIUM CHLORIDE 0.9% IV 1,000 ML 75 ML IV CONT (02:46)
[2024-01-17] MEDS: PIPERACILLN/TAZ 3.375GM/NS50ML 3.375 GM/50 ML BAG IVPB ×2 (02:51→10:06)
[2024-01-17 04:00] VITALS: BP 94/50; PULSE 97; RESP 20; TEMP 36.7; O2SAT 90
[2024-01-17] MEDS: ONDANSETRON INJ 4 MG/2 ML VIAL IV PUSH (04:43)
[2024-01-17 06:19] LABS: Glucose Point of Care 105 mg/dl (65-105)
[2024-01-17 06:42] LABS: Hematocrit 41.5 % (37.0-47.0); Hemoglobin 13.6 g/dL (12.0-15.0); Mean Corpuscular HGB Conc 32.8 g/dl (32-36); Mean Corpuscular Hemoglobin 31.7 pg (26-34); Mean Corpuscular Volume 96.7 fl (80-100); Mean Platelet Volume 9.1 fl (7.4-10.4); Platelet Count Result 219 k/mm3 (150-375); Red Blood Count 4.29 M/mm3 (4.2-5.4); White Blood Count 24.7 K/mm3 (4.5-10.0)
[2024-01-17 06:51] LABS: Alanine Aminotransferase 16 U/L (6-35); Albumin Level 3.4 g/dL (3.5-5.1); Alkaline Phosphatase 65 U/L (38-126); Anion Gap 6 mmol/L (4-12); Aspartate Amino Transferase 19 U/L (14-36); Bilirubin,Total 1.1 mg/dL (0.2-1.3); Blood Urea Nitrogen 18 mg/dL (7-17); Calcium 8.6 mg/dL (8.4-10.2); Carbon Dioxide 26 mmol/L (22-30); Chloride 106 mmol/L (98-107); Estimated CRCL calculation 39 ml/min; Estimated Glomerular Filt Rate > 60; Glucose 122 mg/dL (65-110); Magnesium 2.3 mg/dL (1.6-2.3); Potassium 4.3 mmol/L (3.4-5.0); Sodium 138 mmol/L (137-145)
[2024-01-17 08:00] VITALS: BP 168/85; PULSE 100; RESP 18; TEMP 36.6; O2SAT 98
--- NOTE | 2024-01-17 08:49 | PM.IMPN ---
Progress Note: A&P Assessment and Plan (1) Umbilical hernia without obstruction and without gangrene: Code(s): K42.9 - Umbilical hernia without obstruction or gangrene Status: Acute (2) Temporal arteritis: Code(s): M31.6 - Other giant cell arteritis Status: Acute (3) Type 2 diabetes mellitus: Code(s): E11.9 - Type 2 diabetes mellitus without complications Status: Acute (4) Enterocolitis: Code(s): K52.9 - Noninfective gastroenteritis and colitis, unspecified Status: Acute (5) Abdominal abscess: Status: Acute Plan Gastroenteritis with central ABD abscess Initial CT with wall thickening and abscess General Surgery consulted Normal WBC today now 24.7 Zosyn IV Soft BP today repeat labs, lactic Repeated CT scan Pain control antiemetics NPO Giant Cell arteritis Follows with Dr. Vidal Escobedo at [facility] patient on taper dose of steroids LM for Dr. Escobedo to update and current status will await any recommendations Diabetes Accu-Cheks a.c. HS sliding scale insulin hold oral diabetic medications on steroid taper for GCA Watch for hypoglycemia/hypoglycemic protocol ordered Asthma stable resumed prn inhalers Code status: Full code per patient DVT prophylaxis: scd Stress ulcer prophylaxis: Protonix 40 BID PT/OT notes: PT/OT on hold Disposition: Patient continues admission for colitis and abscess will continue to treat with empiric ABX, pain control and bowel regiment, Surgery consulted and follow-up CT pending to r/o perforation. Time Spent With Patient Time with patient: 15 - 25 minutes Subjective Date/time seen: 01/17/24 08:49 Interval history: Admission: This is an 83-year-old female with history of stroke, hypertension, dyslipidemia, giant cell arteritis, asthma, and depression who presented to the emergency department for evaluation of abdominal pain. The patient provides the following history. She developed lower abdominal discomfort approximately 4 days ago which she initially attributed to constipation. Since administering herself an enema yesterday she has had nonstop diarrhea. Her appetite has been poor due to ongoing nausea. She has also had several episodes of nonbilious and nonbloody emesis. Her abdomen has become increasingly painful and distended and she also endorses nausea and vomiting. She reports feeling as though she cannot take a deep breath with her right lung. She denies fever, chills, chest and pleuritic pain, shortness of breath, cough hematemesis, melena, and hematochezia. She denies sick contacts, recent travel, and recent antibiotic use. In the ED: She was afebrile on arrival with stable but slightly elevated blood pressures. Labs were significant for WBC count of 8.6, hemoglobin 14.3, hematocrit 42.2, sodium 138, potassium 3.2, BUN 21, creatinine 0.60, glucose 130, lactic acid 1.7. Urine was concentrated with 1+ protein and trace ketones. CT of the abdomen and pelvis showed probable extensive enterocolitis with a suspected 3.5 x 2.8 x 2.7 irregular central abdominal abscess. She received IV fluids, antiemetics, and analgesics, and antibiotics in the ED and she is being admitted in this setting for further treatment and GI and surgery consultation. Of note, she was started on prednisone 60 mg daily sometime last year for her giant cell arteritis which has been progressively weaned. She is currently on 3 mg prednisone a day and in the next week or so is supposed to drop to 2 mg a day. She was previously on methotrexate but had issues with that and is now on Actemra of which she is due to take her next dose MondayJanuary 16. She is very worried about missing these medications and has been trying to get the hospitalist service in touch with her painting worker, Dr. Vidal Escobedo with [facility], to discuss the best course of action. 01/16: Patient WBC up to 24.7 today and BP dropped. Patient still reported ABD moderate to
[2024-01-17] MEDS: MORPHINE SULFATE (*CRX) 2 MG/ML INJ IV PUSH ×2 (09:19→17:36)
[2024-01-17 09:52] LABS: Lactic Acid Reflex 1.4 mmol/L (0.7-2.0)
[2024-01-17] MEDS: SODIUM CHLORIDE 0.9% IV 1,000 ML 100 ML IV CONT ×2 (10:06→23:55)
[2024-01-17] MEDS: PANTOPRAZOLE SODIUM IV 40 MG VIAL IV PUSH ×2 (10:06→21:20)
--- NOTE | 2024-01-17 10:10 | WPDCDIQUERY2 ---
CDI Query Clarification Request BMI 16.9 Nutritional Diagnostic Statement Moderate protein calorie malnutrition related to reduced appetite and inadequate energy intake as evidenced by Pt report, noted a -9% wt loss within the last 6-9 months with a low BMI of 16.9 , and NFPE findings of moderate subcutaneous fat loss (cheeks) and moderate muscle wasting (congregation, clavicle). Nutrition intervention: Advance diet when appropriate Add Ensure compact TID for additional 220 kcal, 9 g protein per shake Please refer to the comprehensive nutrition assessment for further information. Please clarify the severity of protein calorie malnutrition if known: Mild Moderate Severe Other/Unspecified <Nyla Davenport RN - Last Filed: 01/17/24 10:17> BMI 16.9 Nutritional Diagnostic Statement Moderate protein calorie malnutrition related to reduced appetite and inadequate energy intake as evidenced by Pt report, noted a -9% wt loss within the last 6-9 months with a low BMI of 16.9 , and NFPE findings of moderate subcutaneous fat loss (cheeks) and moderate muscle wasting (congregation, clavicle). Nutrition intervention: Advance diet when appropriate Add Ensure compact TID for additional 220 kcal, 9 g protein per shake Please refer to the comprehensive nutrition assessment for further information. Please clarify the severity of protein calorie malnutrition if known: Mild Moderate Severe Other/Unspecified <Nyla Quinonez APRN - Last Filed: 01/17/24 12:29> Clarified Diagnosis Clarified Diagnosis: Moderate protein calorie malnutrition related to reduced appetite and inadequate energy intake as evidenced by Pt report, noted a -9% wt loss within the last 6-9 months with a low BMI of 16.9 , and NFPE findings of moderate subcutaneous fat loss (cheeks) and moderate muscle wasting (congregation, clavicle). Advance diet when appropriate Add Ensure compact TID for additional 220 kcal, 9 g protein per shake <Nyla Quinonez APRN - Last Filed: 01/17/24 12:29>
[2024-01-17 10:13] VITALS: PULSE 104; RESP 18; O2SAT 94
[2024-01-17 11:33] LABS: Glucose Point of Care 113 mg/dl (65-105)
[2024-01-17 11:36] VITALS: BP 150/76; PULSE 84; RESP 18; TEMP 36.2; O2SAT 98
[2024-01-17] MEDS: HYDROCORTISONE SODIUM SUCCINATE 100 MG/2 ML VIAL IV PUSH (11:56)
[2024-01-17] MEDS: CEFEPIME 2 GM/NS 50 ML 2 GM/50 ML BAG IVPB ×2 (11:56→21:20)
[2024-01-17] MEDS: metroNIDAZOLE 500 MG/ISO 100ML 500 MG/100 ML BAG 100 MG IVPB ×3 (12:50→23:55)
--- NOTE | 2024-01-17 15:39 | PM.PNGS ---
Progress Note: A&P Assessment and Plan (1) Intra-abdominal abscess: Code(s): K65.1 - Peritoneal abscess Status: Acute Assessment and Plan: WBC jumped up to 24,000 today. Lactic acid remains normal. CT scan chest/abdomen/pelvis repeated today and showed an interval increase in the abscess measuring up to 5.9 cm and in the expected area of the appendix. Reviewed the CT scan with the Radiologist who feels this may be amenable to drainage. Will order CT-guided abscess drainage in Radiology. Perforated appendicitis is in the differential and this was discussed with the patient. This does not change current treatment. Continue IV antibiotics. (2) Peritonitis: Code(s): K65.9 - Peritonitis, unspecified Status: Acute Assessment and Plan: Repeat CT also suggests worsened small volume of ascites with peritoneal thickening and enhancement c/w peritonitis. After reviewing the CT with the Radiologist, will also order a paracentesis that could be done when she has her perc drain placed. Continue IV antibiotics. (3) Partial small bowel obstruction: Code(s): K56.600 - Partial intestinal obstruction, unspecified as to cause Status: Acute Assessment and Plan: CT also showed likely partial small bowel obstruction with transition point at the terminal ileum. No bowel function since admission. Will keep her NPO for now. Discussed possibility of needing an NG tube if she begins vomiting. (4) Enterocolitis: Code(s): K52.9 - Noninfective gastroenteritis and colitis, unspecified Status: Acute (5) Malnutrition: Code(s): E46 - Unspecified protein-calorie malnutrition Status: Acute Assessment and Plan: Patient has not eaten for a week and CT today showed PSBO. She will be kept NPO again today and is having some nausea. Will order a PICC line and start TPN for nutrition until we are able to start advancing her diet. (6) Umbilical hernia without obstruction and without gangrene: Code(s): K42.9 - Umbilical hernia without obstruction or gangrene Status: Acute (7) Chronic steroid use: Status: Acute (8) Temporal arteritis: Code(s): M31.6 - Other giant cell arteritis Status: Acute Assessment and Plan: Hospitalist spoke with her Strategic Development Manager and gave her a one time dose of IV steroids. (9) Type 2 diabetes mellitus: Code(s): E11.9 - Type 2 diabetes mellitus without complications Status: Acute Plan I have discussed the patient's case and plan of care with Dr. Daniels. Subjective Subjective Date/Time Seen: 01/17/24 15:39 Patient reports: no new complaints, no flatus, no bowel movement and nausea Interval history: Patient reports having more abdominal pain this morning, but it improved with morphine. Her pain is in the RLQ and umbilical area. Her bloating and distention is reportedly the same. She also reports intermittent nausea today, worse when she is getting up and walking. She denies any vomiting. No flatus or BM. Pt also reports that leading up to this hospitalization she has not eaten for a week. Review of Systems Review of Systems: All systems reviewed & are unremarkable except as noted in HPI and below Exam Const: General: comfortable and no acute distress Orientation/consciousness: patient oriented x3 GI: Inspection: distended GI Palp: Yes Soft to palpation, Yes Tenderness to palpation present (GI) (most focally in the RLQ, pain in RLQ with palpation in all other quadrants), Yes Guarding due to palpation present (GI) (RLQ), Yes Hernia present umbilical (very tender) and No Rebound tenderness present Percussion: Yes tympanic to percussion Auscultation: normal bowel sounds Objective Data Vital Signs Vital Signs: Vital Signs - 24 hr 01/16/24 15:49 01/16/24 20:00 01/16/24 20:00 Temperature 98.7 F 97.1 F L Pulse Rate 85 84 Respiratory Rate 20 18 Blood Pressure 158/78 H 146/70 H Pulse Oximetry 97
[2024-01-17 15:42] LABS: Hematocrit 41.7 % (37.0-47.0); Hemoglobin 13.9 g/dL (12.0-15.0); Mean Corpuscular HGB Conc 33.3 g/dl (32-36); Mean Corpuscular Hemoglobin 31.9 pg (26-34); Mean Corpuscular Volume 95.6 fl (80-100); Mean Platelet Volume 8.9 fl (7.4-10.4); Platelet Count Result 245 k/mm3 (150-375); Red Blood Count 4.36 M/mm3 (4.2-5.4); White Blood Count 27.7 K/mm3 (4.5-10.0)
[2024-01-17 15:53] LABS: Alanine Aminotransferase 18 U/L (6-35); Albumin Level 3.7 g/dL (3.5-5.1); Alkaline Phosphatase 89 U/L (38-126); Anion Gap 8 mmol/L (4-12); Aspartate Amino Transferase 33 U/L (14-36); Bilirubin,Total 1.2 mg/dL (0.2-1.3); Blood Urea Nitrogen 17 mg/dL (7-17); Calcium 8.9 mg/dL (8.4-10.2); Carbon Dioxide 23 mmol/L (22-30); Chloride 106 mmol/L (98-107); Estimated CRCL calculation 39 ml/min; Estimated Glomerular Filt Rate > 60; Glucose 124 mg/dL (65-110); Potassium 4.3 mmol/L (3.4-5.0); Sodium 137 mmol/L (137-145)
[2024-01-17 16:00] VITALS: BP 154/74; PULSE 84; RESP 18; TEMP 36.3; O2SAT 98
[2024-01-17 16:17] LABS: INR 1.1; Prothrombin Time 14.6 Seconds (11.1-14.7)
[2024-01-17 16:18] LABS: Partial Thromboplastin Time 29.1 Seconds (22.3-36.8)
[2024-01-17 17:10] LABS: Glucose Point of Care 112 mg/dl (65-105)
--- NOTE | 2024-01-17 17:59 | WPDGICN ---
Assessment and Plan Assessment and plan (1) Intra-abdominal abscess: Code(s): K65.1 - Peritoneal abscess Status: Acute Assessment and Plan: on iv abx, CT noted enlargement of abscess, IR will try to drain tomorrow, surgery on board (2) Partial small bowel obstruction: Code(s): K56.600 - Partial intestinal obstruction, unspecified as to cause Status: Acute Assessment and Plan: by surgery, this is from peritonitis/abscess (3) SIRS (systemic inflammatory response syndrome): Code(s): R65.10 - Systemic inflammatory response syndrome (SIRS) of non-infectious origin without acute organ dysfunction Status: Acute Assessment and Plan: with leukocytosis, peritonitis on iv abx, will need abscess drainage (4) Temporal arteritis: Code(s): M31.6 - Other giant cell arteritis Status: Acute Assessment and Plan: on steroids by pcp (5) Chronic steroid use: Status: Acute Assessment and Plan: this is causing immunocompromised (6) Enterocolitis: Code(s): K52.9 - Noninfective gastroenteritis and colitis, unspecified Status: Acute Assessment and Plan: iv abx, surgery management no need of endoscopic evaluation (7) Immunocompromised due to corticosteroids: Code(s): 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 She started with lower abdominal discomfort approximately 4 days prior to admission, she thought could have been constipation and used enema but then had nonstop diarrhea. Also had nausea with emesis, not feeling well. Finally she came here. Labs were significant for WBC count of 8.6 but then up to 27k, hemoglobin 14.3, hematocrit 42.2, sodium 138, potassium 3.2, BUN 21, creatinine 0.60, glucose 130, lactic acid 1.7. CT of her abdomen and pelvis was performed and this showed evidence of probable extensive enterocolitis with suspected small central abdominal abscess. Repeat CT scan showed increase size of abscess. Surgery on board, last colonoscopy about 20 years ago. Review of Systems Review of Systems: All systems reviewed & are unremarkable except as noted in HPI and below Constitutional: Constitutional: Denies chills and Denies fever(s) Eyes: Eyes: Denies change in vision ENT: Denies hearing loss, Denies neck pain and Denies sore throat Cardiovascular: Cardiovascular: Denies chest pain and Denies dyspnea Respiratory: Respiratory: Denies cough Gastrointestinal: Gastrointestinal: Reports abdominal pain, Reports nausea and Reports vomiting Genitourinary: Genitourinary: Denies hematuria Musculoskeletal: Musculoskeletal: Denies neck pain Integumentary/Breasts: Skin/Breast: Denies rash Neurologic: Denies Abnormal speech present Psychiatric: Psychiatric: Denies behavioral changes Allergic/Immunologic: Allergic/Immunologic: Denies wheezing [facility] Past Medical History Medical History (Updated 01/17/24 @ 18:04 by Rj Cesar MD) Anxiety Asthma Cerebrovascular accident (2014) Chronic steroid use Depression Hearing loss Hypertension Immunocompromised due to corticosteroids Mixed hyperlipidemia SIRS (systemic inflammatory response syndrome) Temporal arteritis Type 2 diabetes mellitus Surgical History Surgical History History of surgery on wrist History of tonsillectomy Family History Family History (Reviewed 01/16/24 @ 20:59 by Vignesh
[2024-01-17 20:25] VITALS: BP 134/65; PULSE 80; RESP 18; TEMP 36.6; O2SAT 96
[2024-01-18] VITALS (16 sets, daily range): BP systolic 108–181; BP diastolic 72–88; PULSE 73–109; RESP 14–24; TEMP 36.2–37; O2SAT 94–100
[2024-01-18] MEDS: MORPHINE SULFATE (*CRX) 2 MG/ML INJ IV PUSH ×5 (00:01→21:33)
[2024-01-18 00:31] LABS: Glucose Point of Care 89 mg/dl (65-105)
[2024-01-18] MEDS: ONDANSETRON INJ 4 MG/2 ML VIAL IV PUSH ×4 (04:50→21:33)
[2024-01-18] MEDS: metroNIDAZOLE 500 MG/ISO 100ML 500 MG/100 ML BAG 100 MG IVPB ×3 (05:37→17:27)
[2024-01-18 06:34] LABS: Basophils Absolute Auto 0.1 K/mm3 (0.0-0.1); Basophils Percent Auto 0.3 % (0.2-1.2); Hematocrit 37.5 % (37.0-47.0); Hemoglobin 12.2 g/dL (12.0-15.0); Immature Granulocyte Absolute 0.28 K/mm3 (0.00-0.031); Immature Granulocyte Percent A 1.2 % (0-0.5); Lymphocytes Absolute Auto 1.63 K/mm3 (0.9-3.2); Lymphocytes Percent Auto 6.8 % (18.3-44.2); Mean Corpuscular HGB Conc 32.5 g/dl (32-36); Mean Corpuscular Hemoglobin 31.7 pg (26-34); Mean Corpuscular Volume 97.4 fl (80-100); Monocytes Percent Auto 4.1 % (2.6-8.5); Neutrophils Percent Auto 87.6 % (45.5-73.1); Platelet Count Result 216 k/mm3 (150-375); Red Blood Count 3.85 M/mm3 (4.2-5.4); White Blood Count 23.9 K/mm3 (4.5-10.0)
[2024-01-18 06:44] LABS: Glucose Point of Care 82 mg/dl (65-105)
[2024-01-18 06:45] LABS: Alanine Aminotransferase 15 U/L (6-35); Albumin Level 3.4 g/dL (3.5-5.1); Alkaline Phosphatase 73 U/L (38-126); Anion Gap 10 mmol/L (4-12); Aspartate Amino Transferase 22 U/L (14-36); Blood Urea Nitrogen 18 mg/dL (7-17); Calcium 8.7 mg/dL (8.4-10.2); Carbon Dioxide 20 mmol/L (22-30); Chloride 108 mmol/L (98-107); Estimated CRCL calculation 50 ml/min; Estimated Glomerular Filt Rate > 60; Glucose 89 mg/dL (65-110); Magnesium 2.1 mg/dL (1.6-2.3); Phosphorus 3.5 mg/dL (2.5-4.5); Potassium 3.8 mmol/L (3.4-5.0); Sodium 138 mmol/L (137-145)
[2024-01-18] MEDS: CEFEPIME 2 GM/NS 50 ML 2 GM/50 ML BAG IVPB ×2 (08:34→20:19)
[2024-01-18] MEDS: PANTOPRAZOLE SODIUM IV 40 MG VIAL IV PUSH ×2 (08:35→20:19)
--- NOTE | 2024-01-18 09:36 | P.PNIM_ITS ---
Progress Note: A&P Assessment and Plan (1) Umbilical hernia without obstruction and without gangrene: Code(s): K42.9 - Umbilical hernia without obstruction or gangrene Status: Acute (2) Temporal arteritis: Code(s): M31.6 - Other giant cell arteritis Status: Acute (3) Type 2 diabetes mellitus: Code(s): E11.9 - Type 2 diabetes mellitus without complications Status: Acute (4) Enterocolitis: Code(s): K52.9 - Noninfective gastroenteritis and colitis, unspecified Status: Acute (5) Abdominal abscess: Status: Acute (6) Intra-abdominal abscess: Code(s): K65.1 - Peritoneal abscess Status: Acute (7) Peritonitis: Code(s): K65.9 - Peritonitis, unspecified Status: Acute (8) Partial small bowel obstruction: Code(s): K56.600 - Partial intestinal obstruction, unspecified as to cause Status: Acute (9) Malnutrition: Code(s): E46 - Unspecified protein-calorie malnutrition Status: Acute (10) SIRS (systemic inflammatory response syndrome): Code(s): R65.10 - Systemic inflammatory response syndrome (SIRS) of non-infectious origin without acute organ dysfunction Status: Acute (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(s): D84.821 - Immunodeficiency due to drugs; T38.0X5A - Adverse effect of glucocorticoids and synthetic analogues, initial encounter; Z79.52 - skilled nursing (current) use of systemic steroids Status: Acute Plan Gastroenteritis with central ABD abscess and Peritonitis * Initial CT with wall thickening and abscess * General Surgery consulted * Normal WBC today now 24.7 * Zosyn IV * Soft BP today * repeat labs, lactic * Repeated CT scan worsening abscess and peritonitis * Pain control * antiemetics * NPO 01/17: * Swtiched ABX to flaygl and cefepime * absc and paracentesis scheduled today * wbc slightly improved * PICC * start TPN * continue NPO SBO * NPO * Surgery consulted * may place NG tube for decompression if patient has vomitng * IV fluids * TPN Giant Cell arteritis * Follows with Dr. Vidal Escobedo at [facility] * patient on taper dose of steroids * LM for Dr. Escobedo to update and current status will await any recommendations 01/17: * Dr. Escobedo informed on patient did request a stress dose of hydrocortisone 100mg * will keep him updated Diabetes * Accu-Cheks a.c. HS * sliding scale insulin * hold oral diabetic medications * on steroid taper for GCA * Watch for hypoglycemia/hypoglycemic protocol ordered Asthma * stable * resumed prn inhalers Moderate protein calorie malnutrition related to reduced appetite and inadequate energy intake as evidenced by Pt report, noted a -9% wt loss within the last 6-9 months with a low BMI of 16.9 , and NFPE findings of moderate subcutaneous fat loss (cheeks) and moderate muscle wasting (islam, clavicle). * Advance diet when appropriate * Add Ensure compact TID for additional 220 kcal, 9 g protein per shake Code status: Full code per patient DVT prophylaxis: scd Stress ulcer prophylaxis: Protonix 40 BID PT/OT notes: PT/OT on hold Disposition: Patient continues NPO for peritonitis drainage tube and paracentisis scheduled for today and TPN to be started. PT/OT pending and will speak with family regarding discharge planning when medically stable. Time Spent With Patient Time with patient: 15 - 25 minutes Subjective D
--- NOTE | 2024-01-18 09:36 | PM.IMPN ---
Progress Note: A&P Assessment and Plan (1) Umbilical hernia without obstruction and without gangrene: Code(s): K42.9 - Umbilical hernia without obstruction or gangrene Status: Acute (2) Temporal arteritis: Code(s): M31.6 - Other giant cell arteritis Status: Acute (3) Type 2 diabetes mellitus: Code(s): E11.9 - Type 2 diabetes mellitus without complications Status: Acute (4) Enterocolitis: Code(s): K52.9 - Noninfective gastroenteritis and colitis, unspecified Status: Acute (5) Abdominal abscess: Status: Acute (6) Intra-abdominal abscess: Code(s): K65.1 - Peritoneal abscess Status: Acute (7) Peritonitis: Code(s): K65.9 - Peritonitis, unspecified Status: Acute (8) Partial small bowel obstruction: Code(s): K56.600 - Partial intestinal obstruction, unspecified as to cause Status: Acute (9) Malnutrition: Code(s): E46 - Unspecified protein-calorie malnutrition Status: Acute (10) SIRS (systemic inflammatory response syndrome): Code(s): R65.10 - Systemic inflammatory response syndrome (SIRS) of non-infectious origin without acute organ dysfunction Status: Acute (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(s): D84.821 - Immunodeficiency due to drugs; T38.0X5A - Adverse effect of glucocorticoids and synthetic analogues, initial encounter; Z79.52 - detention (current) use of systemic steroids Status: Acute Plan Gastroenteritis with central ABD abscess and Peritonitis Initial CT with wall thickening and abscess General Surgery consulted Normal WBC today now 24.7 Zosyn IV Soft BP today repeat labs, lactic Repeated CT scan worsening abscess and peritonitis Pain control antiemetics NPO 01/17: Swtiched ABX to flaygl and cefepime absc and paracentesis scheduled today wbc slightly improved PICC start TPN continue NPO SBO NPO Surgery consulted may place NG tube for decompression if patient has vomitng IV fluids TPN Giant Cell arteritis Follows with Dr. Vidal Escobedo at [facility] patient on taper dose of steroids LM for Dr. Escobedo to update and current status will await any recommendations 01/17: Dr. Escobedo informed on patient did request a stress dose of hydrocortisone 100mg will keep him updated Diabetes Accu-Cheks a.c. HS sliding scale insulin hold oral diabetic medications on steroid taper for GCA Watch for hypoglycemia/hypoglycemic protocol ordered Asthma stable resumed prn inhalers Moderate protein calorie malnutrition related to reduced appetite and inadequate energy intake as evidenced by Pt report, noted a -9% wt loss within the last 6-9 months with a low BMI of 16.9 , and NFPE findings of moderate subcutaneous fat loss (cheeks) and moderate muscle wasting (yarsani, clavicle). Advance diet when appropriate Add Ensure compact TID for additional 220 kcal, 9 g protein per shake Code status: Full code per patient DVT prophylaxis: scd Stress ulcer prophylaxis: Protonix 40 BID PT/OT notes: PT/OT on hold Disposition: Patient continues NPO for peritonitis drainage tube and paracentisis scheduled for today and TPN to be started. PT/OT pending and will speak with family regarding discharge planning when medically stable. Time Spent With Patient Time with patient: 15 - 25 minutes Subjective Date/time seen: 01/18/24 09:36 Interval history: Admission: This is an 83-year-old female with history of stroke, hypertension, dyslipidemia, giant cell arteritis, asthma, and depression who presented to the emergency department for evaluation of abdominal pain. The patient provides the following history. She developed lower abdominal discomfort approximately 4 days ago which she initially attributed to constipation. Since administering herself an enema yesterday she has had nonstop diarrhea. Her appetite has been poor due to ongoi
--- NOTE | 2024-01-18 10:59 | PCNFU ---
Nutrition Follow-Up Complete: Moderate protein calorie malnutrition related to reduced appetite and inadequate energy intake as evidenced by pt report, noted a -9% wt loss within the last 6-9 months with a low BMI of 16.9, and NFPE findings of moderate subcutaneous fat loss (cheeks) and moderate muscle wasting (protestant, clavicle). Gaol: Diet order and tolerance PO intake 50% or greater Patient is not progressing towards goal at this time. We will continue current goal. Pt current nutrition is Clinimix E 5/15. Nutrition recommendation: increase to 50 ml/hr Day 2. Last recorded weight is 46.5 kg, up from 44.7 kg on admit. Bowel Motility: No BM reported per nursing. Labs Reviewed: Cr 0.5,BUN 18, Alb 3.4 Meds Noted:Zofran, Clinimix E 5/15, 20% Lipid Emulsion, Flagyl, NS, Protonix. Skin: WNL Additional Notes: Patient is currently NPO. PICC line being placed today for TPN access. Plans for Clinimix E 5/15 at 40 ml/hr with 20% Lipid Emulsion. TPN will be providing 1182 kcals/48 gms protein. Recommend Day 2 advancing to 50 ml/hr. Once TPN is started recommend discontinuing fluids. Agree with diet orders. Monitor for diet order, intake, tolerance, wt, labs. Follow up every Monday and Monday.
--- NOTE | 2024-01-18 11:56 | WPDMODSED ---
Moderate Sedation Note-Pt Data Patient Data Diagnosis: Abdominal abscess. Present Complaint: Abdominal abscess. Procedure to be performed/Plan: CT-guided abdominal abscess drainage. Allergies Allergy/AdvReac Type Severity Reaction Status Date / Time No Known Allergies Allergy Verified 01/15/24 13:12 Home Medications Medication Instructions Recorded Confirmed Type atorvastatin 10 mg tablet 5 mg PO DAILY 11/14/22 01/16/24 History losartan 50 mg tablet 50 mg PO DAILY #90 tabs 12/20/22 01/16/24 Rx albuterol sulfate 90 mcg/actuation 2 puff inhalation QID PRN 01/04/23 01/16/24 History aerosol inhaler (ProAir HFA) Shortness Of Breath Or Wheezing albuterol sulfate 90 mcg/actuation 1 inh inhalation Q4-6H PRN 01/04/23 01/16/24 History breath activated powder inhaler Shortness Of Breath Or Wheezing (ProAir RespiClick) lactobacillus combination no.8 3 3 cell PO DAILY 01/04/23 01/16/24 History billion cell capsule multivit with minerals-iron 18 1 tablet PO DAILY 01/04/23 01/16/24 History mg-folic ac 400 mcg-vit K 25 mcg tablet (Adults Multivitamin) tiotropium bromide 2.5 2 puff inhalation DAILY PRN 01/04/23 01/16/24 History mcg/actuation mist for inhalation Shortness Of Breath Or Wheezing (Spiriva Respimat) blood-glucose meter #1 ea 01/24/23 03/15/23 Rx magnesium oxide 400 mg PO DAILY #90 caps 03/15/23 01/16/24 Rx montelukast 10 mg tablet 10 mg PO HS #90 tabs 03/15/23 01/16/24 Rx (Singulair) methotrexate sodium 2.5 mg tablet 15 mg PO WEEKLY #72 tabs 04/07/23 01/16/24 Rx lancets 33 gauge #100 ea 08/21/23 Rx sertraline 25 mg tablet 25 mg PO DAILY #90 tabs 08/21/23 01/16/24 Rx tramadol 50 mg tablet 50 mg PO Q6H PRN pain #45 tabs 08/25/23 01/16/24 Rx aspirin 25 mg-dipyridamole 200 mg 1 cap PO BID #180 caps 10/23/23 01/16/24 Rx capsule,ext.release 12 hr multiphase trazodone 50 mg tablet 50 mg PO QHS #90 tabs 10/30/23 01/16/24 Rx blood sugar diagnostic #100 ea 12/04/23 Rx cholecalciferol (vitamin D3) 125 125 mcg PO WEEKLY 12/11/23 01/16/24 History mcg (5,000 unit) capsule triamcinolone acetonide 0.1 % 1 applic topical QID #80 grams 12/11/23 01/16/24 Rx topical cream folic acid 1 mg tablet 1 mg PO DAILY 01/15/24 01/16/24 History metformin 500 mg tablet 500 mg PO BID 01/16/24 01/16/24 History prednisone 1 mg tablet 3 mg PO DAILY 01/16/24 01/16/24 History tocilizumab 162 mg/0.9 mL 162 mg subcut USEASDIRECTD 01/16/24 01/16/24 History subcutaneous pen injector Current Medications: Active Medications Albuterol (Albuterol Sulfate (*Sp) Aerosol 1 Puff) 2 puff INHALATION QID PRN PRN Reason: Shortness Of Breath Or Wheezing Dextrose (Dextrose 50% 25 Gm/50 Ml Syringe) 12.5 gm IV PUSH PRN PRN; Protocol PRN Reason: Hypoglycemia Glucagon (Glucagon For Inj 1 Mg Vial) 1 mg IM PRN PRN; Protocol PRN Reason: Hypoglycemia Glucose (Glucose Oral Gel 15 Gm Of Glucse In 37.5 Gm Tube) 15 gm PO PRN PRN; Protocol PRN Reason: Hypoglycemia Dextrose (Dextrose 5% 1,000 Ml) 1,000 mls @ 100 mls/hr IVPB PRN PRN; Protocol PRN Reason: Hypoglycemia Sodium Chloride (Normal Saline Iv) 1,000 mls @ 100 mls/hr IV CONT .Q10H GI Last Admin: 01/17/24 23:55 Dose: 100 mls/hr Cefepime HCl (Maxipime 2 Gm/Ns 50 Ml) 2 gm in 50 mls @ 100 mls/hr IVPB Q12HR GI Last Infusion: 01/18/24 09:04 Dose: Infused Metronidazole (Flagyl 500 Mg/Iso Soln 100 Ml) 500 mg in 100 mls @ 100 mls/hr IVPB Q6H GI Last Infusion: 01/18/24 06:37 Dose: Infused Dextrose (Dextrose 10%) 1,000 mls @ 50 mls/hr IV CONT .Q20H PRN PRN Reason: if PN is interrupted Multivitamins 2.5 ml/Multivitamins 2.5 ml/ Amino Acids/Electrolytes/Dextrose 2,005 mls @ 40 mls/hr IV CONT .Q24H GI; Protocol Fat Emulsion Intravenous (Lipids 20%) 250 mls @ 20.833 mls/hr IVPB Q24H GI Insulin Aspart (Insulin Aspart (*Bkc) 100 Units/Ml) 2 - 5 units SUB-Q Q6HR GI; Protocol Last Admin: 01/18/24 07:47 Dose: Not Given Morphine Sulfate (Morphine Sulfate (*Crx) 2 Mg/Ml
--- NOTE | 2024-01-18 13:00 | SUR.PHASEII ---
Time out @ 1228 CT procedure with moderate sedation starts @ 1228 Fentanyl 50 mcg IV @ 1228 CT procedure ends @ 1250 Start Phase 2 recovery @ 1256 Pt recovered/monitored for 30 minutes post sedation/analgesic time @ 1228 (1228 to 1258) Report called to floor BUBBA Feng at 1300. Pt had ultrasound in procedure room immediately following CT Guided Drain placement abdomen Accompanied pt and transporter to room 314. Nurse Ping at bedside to receive pt @ 1315 Pt awake without c/o or distress upon return to room 314. Son present. Abd drsg d/i at site of drain. Drain reservoir compressed.
[2024-01-18] MEDS: SODIUM CHLORIDE 0.9% IV 1,000 ML 100 ML IV CONT (14:04)
[2024-01-18 14:16] LABS: Glucose Point of Care 78 mg/dl (65-105)
--- NOTE | 2024-01-18 15:57 | PM.PNGS ---
Progress Note: A&P Assessment and Plan (1) Intra-abdominal abscess: Code(s): K65.1 - Peritoneal abscess Status: Acute Assessment and Plan: Percutaneous drainage in Radiology today. Cultures pending. Continue IV antibiotics. (2) Peritonitis: Code(s): K65.9 - Peritonitis, unspecified Status: Acute Assessment and Plan: S/p paracentesis today yielding 100 mL red-conley fluid (3) Partial small bowel obstruction: Code(s): K56.600 - Partial intestinal obstruction, unspecified as to cause Status: Acute Assessment and Plan: CT yesterday showed likely partial small bowel obstruction with transition point at the terminal ileum. Still awaiting bowel function and her abdomen appears distended yet today. Continue bowel rest and IV fluids. Will need NG if starts vomiting. (4) Enterocolitis: Code(s): K52.9 - Noninfective gastroenteritis and colitis, unspecified Status: Acute Assessment and Plan: Continue IV antibiotics. Initial CT read as enterocolitis. Repeat CT showing an enlarged abscess in the area of the appendix. Could be related to perforated appendicitis. (5) Malnutrition: Code(s): E46 - Unspecified protein-calorie malnutrition Status: Acute Assessment and Plan: PICC line and TPN ordered (6) Umbilical hernia without obstruction and without gangrene: Code(s): K42.9 - Umbilical hernia without obstruction or gangrene Status: Acute (7) Chronic steroid use: Status: Acute (8) Temporal arteritis: Code(s): M31.6 - Other giant cell arteritis Status: Acute (9) Type 2 diabetes mellitus: Code(s): E11.9 - Type 2 diabetes mellitus without complications Status: Acute Plan I have discussed the patient's case and plan of care with Dr. Daniels. Subjective Subjective Date/Time Seen: 01/18/24 15:57 Patient reports: no new complaints, feels better, no flatus, no bowel movement and afebrile Interval history: Patient seen after her perc drain placement and paracentesis that yielded 100 mL red-conley fluid. She reports still having abdominal pain in her lower abdomen. The pain seems better than when she was admitted, but still constant. She still had some nausea today. No vomiting. Walking into the bathroom as needed. Per nursing, vascular access nurse will not place PICC line until tomorrow to wait for blood cx to be negative for 48 hrs. Therefore, TPN has not been started. Exam Const: General: No acute distress Orientation/consciousness: patient oriented x3 GI: Inspection: distended GI Palp: Yes Soft to palpation, Yes Tenderness to palpation present (GI) (across the lower abdomen), No Guarding due to palpation present (GI), Yes No hepatosplenomegaly present and No Rebound tenderness present Auscultation: High-pitched bowel sounds present (very hypoactive) Other: RLQ perc drain with conley output Extrem: General: no calf tenderness and no edema Objective Data Vital Signs Vital Signs: Vital Signs - 24 hr 01/17/24 16:00 01/17/24 20:25 01/18/24 00:00 Temperature 97.3 F L 97.9 F 98.3 F Pulse Rate 84 80 76 Respiratory Rate 18 18 20 Blood Pressure 154/74 H 134/65 161/72 H Pulse Oximetry 98 96 97 Oxygen Delivery Oxygen Flow Rate 01/18/24 04:00 01/18/24 08:00 01/18/24 12:25 Temperature 98.5 F 97.2 F L Pulse Rate 93 73 84 Respiratory Rate 24 H 18 19 Blood Pressure 177/83 H 154/77 H 166/77 H Pulse Oximetry 96 98 95 Oxygen Delivery Nasal Cannula Oxygen Flow Rate 2 01/18/24 13:00 01/18/24 12:30 01/18/24 12:35 Temperature Pulse Rate 79 82 85 Respiratory Rate 19 17 14 Blood Pressure 167/81 H 166/76 H 161/82 H Pulse Oximetry 94 94 100 Oxygen Delivery Room Air Nasal Cannula Nasal Cannula Oxygen Flow Rate 2 4 01/18/24 12:40 01/18/24 12:45 01/18/24 12:50 Temperature Pulse Rate 82 84 81 Respiratory Rate 16 18 17 Blood Pressure 166/83 H 173/87 H 169/84 H Pulse Oxim
[2024-01-18] MEDS: hydrALAZINE HCL 20 MG/ML VIAL IV PUSH (17:27)
--- NOTE | 2024-01-18 18:00 | WPDGIPROGNO ---
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(s): 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 - Immunodeficiency due to drugs; T38.0X5A - Adverse effect of glucocorticoids and synthetic analogues, initial encounter; 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 Status: Acute (5) Malnutrition: Code(s): E46 - Unspecified protein-calorie malnutrition Status: Acute (6) Peritonitis: Code(s): K65.9 - Peritonitis, unspecified Status: Acute Assessment and Plan: on treatment Subjective Date/time seen: 01/18/24 18:00 Interval history: s/p intra abdominal abscess drainage, she is still uncomfortable family members at bedside Review of Systems Review of Systems: All systems reviewed & are unremarkable except as noted in HPI and below Exam Const: Orientation/consciousness: patient oriented x3 Other: c/o pain HENMT: Face/Nose/Sinus: Normal nares present Eyes: Sclera: sclerae normal Neck: Neck: supple Resp: Effort & Inspection: normal respiratory effort Cardio: Rate: regular rate GI: Inspection: distended GI Palp: Yes Soft to palpation, Yes Tenderness to palpation present (GI) (across the lower abdomen), No Guarding due to palpation present (GI), Yes No hepatosplenomegaly present and No Rebound tenderness present Auscultation: High-pitched bowel sounds present (very hypoactive) Other: RLQ perc drain with conley output Skin: General skin exam: normal color Neuro: Speech: normal speech Motor exam (neuro): 5/5 motor strength present throughout Extrem: General: no calf tenderness and no edema Psych: Mental Status: mental status grossly normal Objective Data Vital Signs Vital Signs: Vital Signs - 24 hr 01/17/24 20:25 01/18/24 00:00 01/18/24 04:00 Temperature 97.9 F 98.3 F 98.5 F Pulse Rate 80 76 93 Respiratory Rate 18 20 24 H Blood Pressure 134/65 161/72 H 177/83 H Pulse Oximetry 96 97 96 Oxygen Delivery Oxygen Flow Rate 01/18/24 08:00 01/18/24 12:25 01/18/24 13:00 Temperature 97.2 F L Pulse Rate 73 84 79 Respiratory Rate 18 19 19 Blood Pressure 154/77 H 166/77 H 167/81 H Pulse Oximetry 98 95 94 Oxygen Delivery Nasal Cannula Room Air Oxygen Flow Rate 2 01/18/24 12:30 01/18/24 12:35 01/18/24 12:40 Temperature Pulse Rate 82 85 82 Respiratory Rate 17 14 16 Blood Pressure 166/76 H 161/82 H 166/83 H Pulse Oximetry 94 100 100 Oxygen Delivery Nasal Cannula Nasal Cannula Nasal Cannula Oxygen Flow Rate 2 4 4 01/18/24 12:45 01/18/24 12:50 01/18/24 12:55 Temperature Pulse Rate 84 81 79 Respiratory Rate 18 17 18 Blood Pressure 173/87 H 169/84 H 168/78 H Pulse Oximetry 100 98 96 Oxygen Delivery Nasal Cannula Nasal Cannula Room Air Oxygen Flow Rate 4 2 01/18/24 13:15 01/18/24 16:00 Temperature 97.7 F 98.3 F Pulse Rate 81 84 Respiratory Rate 20 16 Blood Pressure 168/88 H 181/88 H Pulse Oximetry 95 94 Oxygen Delivery Oxygen Flow Rate Intake/Output Intake/Output: Intake & Output 01/15/24 01/16/24 01/17/24 01/18/24 23:59 23:59 23:59 23:59 Intake Total 1208.3 2450 1350 Output Total 700 450 508 Balance 508.3 1999 842 Meds/Results Medications: Active Medications Generic Name Dose Route Start Last Admin Trade Name Freq PRN Reason Stop Dose Admin Albuterol 2 puff 01/16/24 15:13 Alb
[2024-01-18 18:33] LABS: Glucose Point of Care 82 mg/dl (65-105)
[2024-01-18 20:40] LABS: Transferrin 168 mg/dL (206-381)
[2024-01-18 20:47] LABS: Triglycerides 84 mg/dL (<150)
[2024-01-18 23:03] LABS: Glucose Point of Care 83 mg/dl (65-105)
[2024-01-19] MEDS: metroNIDAZOLE 500 MG/ISO 100ML 500 MG/100 ML BAG 100 MG IVPB ×5 (00:08→20:50)
[2024-01-19 00:54] LABS: Glucose Point of Care 85 mg/dl (65-105)
[2024-01-19] MEDS: ONDANSETRON INJ 4 MG/2 ML VIAL IV PUSH ×3 (01:03→12:31)
[2024-01-19] MEDS: MORPHINE SULFATE (*CRX) 2 MG/ML INJ IV PUSH ×3 (01:03→13:42)
[2024-01-19] MEDS: SODIUM CHLORIDE 0.9% IV 1,000 ML 100 ML IV CONT ×2 (05:14→20:37)
[2024-01-19 06:00] VITALS: BP 158/73; PULSE 83; RESP 18; TEMP 36.9; O2SAT 98
[2024-01-19 07:04] LABS: Glucose Point of Care 94 mg/dl (65-105)
[2024-01-19 07:46] LABS: Anion Gap 12 mmol/L (4-12); Blood Urea Nitrogen 18 mg/dL (7-17); Calcium 8.9 mg/dL (8.4-10.2); Carbon Dioxide 18 mmol/L (22-30); Chloride 109 mmol/L (98-107); Estimated CRCL calculation 43 ml/min; Estimated Glomerular Filt Rate > 60; Glucose 94 mg/dL (65-110); Phosphorus 3.2 mg/dL (2.5-4.5); Potassium 3.7 mmol/L (3.4-5.0); Sodium 139 mmol/L (137-145)
[2024-01-19 07:47] LABS: Hematocrit 40.5 % (37.0-47.0); Hemoglobin 13.2 g/dL (12.0-15.0); Mean Corpuscular HGB Conc 32.6 g/dl (32-36); Mean Corpuscular Hemoglobin 31.6 pg (26-34); Mean Corpuscular Volume 96.9 fl (80-100); Mean Platelet Volume 9.2 fl (7.4-10.4); Platelet Count Result 270 k/mm3 (150-375); Red Blood Count 4.18 M/mm3 (4.2-5.4); White Blood Count 18.8 K/mm3 (4.5-10.0)
[2024-01-19] MEDS: ENOXAPARIN 40 MG/0.4 ML SYRINGE SUB-Q (08:58)
[2024-01-19] MEDS: PANTOPRAZOLE SODIUM IV 40 MG VIAL IV PUSH ×2 (08:58→20:49)
[2024-01-19] MEDS: CEFEPIME 2 GM/NS 50 ML 2 GM/50 ML BAG IVPB ×2 (09:00→20:46)
--- NOTE | 2024-01-19 11:36 | PCNFU ---
Nutrition Follow-Up Complete: Moderate protein calorie malnutrition related to reduced appetite and inadequate energy intake as evidenced by pt report, noted a -9% wt loss within the last 6-9 months with a low BMI of 16.9, and NFPE findings of moderate subcutaneous fat loss (cheeks) and moderate muscle wasting (scientology, clavicle). Goal:Diet order and tolerance PO intake 50% or greater -Pt not meeting goal. NEW GOAL: meet at least 60% needs via TPN Pt current nutrition is NPO/ TPN for nutrition support. Nutrition recommendation: continue with current plan of care Last recorded weight is 46.4 kg. Bowel Motility: +BM 4/5 Labs Reviewed: BUN:18, CR:0.6 Meds Noted: Protonix, lovenox Skin: no skin issues noted Additional Notes: Pt remains NPO, TPN running - Clinimix E 02/27 at 40 ml/hr with 20% Lipid Emulsion. TPN providing 1182 kcals/48 gms protein. This is meeting 75% of energy needs, 100% of protein needs. Agree with orders at this time. Monitor for diet order, intake, tolerance, wt, labs. Follow up every Monday and Monday.
[2024-01-19 11:55] LABS: Glucose Point of Care 102 mg/dl (65-105)
[2024-01-19] MEDS: AMINO ACIDS 5%/D15W/E-LYTES/CA 2,000 ML with MULTIVITAMINS-12 INJ VIAL 1 2.5 ML, MULTIV... 40 ML IV CONT (13:40)
[2024-01-19] MEDS: CENTRAL LINE FLUSH 10 ML IV PUSH ×2 (13:42→20:48)
[2024-01-19 14:00] VITALS: BP 182/78; PULSE 86; RESP 18; TEMP 36.9; O2SAT 96
--- NOTE | 2024-01-19 14:30 | P.PNIM_ITS ---
Progress Note: A&P Assessment and Plan (1) Umbilical hernia without obstruction and without gangrene: Code(s): K42.9 - Umbilical hernia without obstruction or gangrene Status: Acute (2) Temporal arteritis: Code(s): M31.6 - Other giant cell arteritis Status: Acute (3) Type 2 diabetes mellitus: Code(s): E11.9 - Type 2 diabetes mellitus without complications Status: Acute (4) Enterocolitis: Code(s): K52.9 - Noninfective gastroenteritis and colitis, unspecified Status: Acute (5) Abdominal abscess: Status: Acute (6) Intra-abdominal abscess: Code(s): K65.1 - Peritoneal abscess Status: Acute (7) Peritonitis: Code(s): K65.9 - Peritonitis, unspecified Status: Acute (8) Partial small bowel obstruction: Code(s): K56.600 - Partial intestinal obstruction, unspecified as to cause Status: Acute (9) Malnutrition: Code(s): E46 - Unspecified protein-calorie malnutrition Status: Acute (10) SIRS (systemic inflammatory response syndrome): Code(s): R65.10 - Systemic inflammatory response syndrome (SIRS) of non-infectious origin without acute organ dysfunction Status: Acute (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(s): D84.821 - Immunodeficiency due to drugs; T38.0X5A - Adverse effect of glucocorticoids and synthetic analogues, initial encounter; Z79.52 - long-term (current) use of systemic steroids Status: Acute Plan Gastroenteritis with central ABD abscess and Peritonitis * Initial CT with wall thickening and abscess * General Surgery consulted * Normal WBC today now 24.7 * Swtiched ABX to flaygl and cefepime * Soft BP today * repeat labs, lactic * Repeated CT scan worsening abscess and peritonitis * Pain control * antiemetics * NPO * PICC * TPN started 01/18 01/17: * Swtiched ABX to flaygl and cefepime * absc and paracentesis scheduled today * wbc slightly improved * PICC * start TPN * continue NPO SBO * NPO * Surgery consulted * may place NG tube for decompression if patient has vomitng * IV fluids * TPN Giant Cell arteritis * Follows with Dr. Vidal Escobedo at [facility] * patient on taper dose of steroids * LM for Dr. Escobedo to update and current status will await any recommendations 01/17: * Dr. Escobedo informed on patient did request a stress dose of hydrocortisone 100mg * will keep him updated HTN * NPO holding home BP medication * Hydralazine IVP PRN for systolic >160 Diabetes * Accu-Cheks a.c. HS * sliding scale insulin * hold oral diabetic medications * on steroid taper for GCA * Watch for hypoglycemia/hypoglycemic protocol ordered Asthma * stable * resumed prn inhalers Moderate protein calorie malnutrition related to reduced appetite and inadequate energy intake as evidenced by Pt report, noted a -9% wt loss within the last 6-9 months with a low BMI of 16.9 , and NFPE findings of moderate subcutaneous fat loss (cheeks) and moderate muscle wasting (orthodoxy, clavicle). * Advance diet when appropriate * Add Ensure compact TID for additional 220 kcal, 9 g protein per shake Code status: Full code per patient DVT prophylaxis: scd/lovenox Stress ulcer prophylaxis: Protonix 40 BID PT/OT notes: PT/OT on hold Disposition: Patient continues NPO for peritonitis drainage tube and paracentisis scheduled for today and TPN to be started. PT/OT pending and will speak with
--- NOTE | 2024-01-19 14:30 | PM.IMPN ---
Progress Note: A&P Assessment and Plan (1) Umbilical hernia without obstruction and without gangrene: Code(s): K42.9 - Umbilical hernia without obstruction or gangrene Status: Acute (2) Temporal arteritis: Code(s): M31.6 - Other giant cell arteritis Status: Acute (3) Type 2 diabetes mellitus: Code(s): E11.9 - Type 2 diabetes mellitus without complications Status: Acute (4) Enterocolitis: Code(s): K52.9 - Noninfective gastroenteritis and colitis, unspecified Status: Acute (5) Abdominal abscess: Status: Acute (6) Intra-abdominal abscess: Code(s): K65.1 - Peritoneal abscess Status: Acute (7) Peritonitis: Code(s): K65.9 - Peritonitis, unspecified Status: Acute (8) Partial small bowel obstruction: Code(s): K56.600 - Partial intestinal obstruction, unspecified as to cause Status: Acute (9) Malnutrition: Code(s): E46 - Unspecified protein-calorie malnutrition Status: Acute (10) SIRS (systemic inflammatory response syndrome): Code(s): R65.10 - Systemic inflammatory response syndrome (SIRS) of non-infectious origin without acute organ dysfunction Status: Acute (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(s): D84.821 - Immunodeficiency due to drugs; T38.0X5A - Adverse effect of glucocorticoids and synthetic analogues, initial encounter; Z79.52 - retirement (current) use of systemic steroids Status: Acute Plan Gastroenteritis with central ABD abscess and Peritonitis Initial CT with wall thickening and abscess General Surgery consulted Normal WBC today now 24.7 Swtiched ABX to flaygl and cefepime Soft BP today repeat labs, lactic Repeated CT scan worsening abscess and peritonitis Pain control antiemetics NPO PICC TPN started 01/18 01/17: Swtiched ABX to flaygl and cefepime absc and paracentesis scheduled today wbc slightly improved PICC start TPN continue NPO SBO NPO Surgery consulted may place NG tube for decompression if patient has vomitng IV fluids TPN Giant Cell arteritis Follows with Dr. Vidal Escobedo at [facility] patient on taper dose of steroids LM for Dr. Escobedo to update and current status will await any recommendations 01/17: Dr. Escobedo informed on patient did request a stress dose of hydrocortisone 100mg will keep him updated HTN NPO holding home BP medication Hydralazine IVP PRN for systolic >160 Diabetes Accu-Cheks a.c. HS sliding scale insulin hold oral diabetic medications on steroid taper for GCA Watch for hypoglycemia/hypoglycemic protocol ordered Asthma stable resumed prn inhalers Moderate protein calorie malnutrition related to reduced appetite and inadequate energy intake as evidenced by Pt report, noted a -9% wt loss within the last 6-9 months with a low BMI of 16.9 , and NFPE findings of moderate subcutaneous fat loss (cheeks) and moderate muscle wasting (religious, clavicle). Advance diet when appropriate Add Ensure compact TID for additional 220 kcal, 9 g protein per shake Code status: Full code per patient DVT prophylaxis: scd/lovenox Stress ulcer prophylaxis: Protonix 40 BID PT/OT notes: PT/OT on hold Disposition: Patient continues NPO for peritonitis drainage tube and paracentisis scheduled for today and TPN to be started. PT/OT pending and will speak with family regarding discharge planning when medically stable. Time Spent With Patient Time with patient: 15 - 25 minutes Subjective Date/time seen: 01/19/24 14:30 Interval history: Admission: This is an 83-year-old female with history of stroke, hypertension, dyslipidemia, giant cell arteritis, asthma, and depression who presented to the emergency department for evaluation of abdominal pain. The patient provides the following history. She developed lower abdominal discomfort approximately 4 days ago which she initially attr
[2024-01-19] MEDS: hydrALAZINE HCL 20 MG/ML VIAL IV PUSH ×2 (15:20→21:59)
--- NOTE | 2024-01-19 15:49 | PM.PNGS ---
Progress Note: A&P Assessment and Plan (1) Intra-abdominal abscess: Code(s): K65.1 - Peritoneal abscess Status: Acute Assessment and Plan: Monitor drain output Await return of bowel function Continue IV antibiotics. (2) Peritonitis: Code(s): K65.9 - Peritonitis, unspecified Status: Acute Assessment and Plan: S/p paracentesis today yielding 100 mL red-conley fluid (3) Partial small bowel obstruction: Code(s): K56.600 - Partial intestinal obstruction, unspecified as to cause Status: Acute Assessment and Plan: Will place NG today due to persistent vomiting (4) Enterocolitis: Code(s): K52.9 - Noninfective gastroenteritis and colitis, unspecified Status: Acute Assessment and Plan: Continue IV antibiotics. Initial CT read as enterocolitis. Repeat CT showing an enlarged abscess in the area of the appendix. Could be related to perforated appendicitis. (5) Malnutrition: Code(s): E46 - Unspecified protein-calorie malnutrition Status: Acute Assessment and Plan: PICC line and TPN ordered (6) Umbilical hernia without obstruction and without gangrene: Code(s): K42.9 - Umbilical hernia without obstruction or gangrene Status: Acute (7) Chronic steroid use: Status: Acute (8) Temporal arteritis: Code(s): M31.6 - Other giant cell arteritis Status: Acute (9) Type 2 diabetes mellitus: Code(s): E11.9 - Type 2 diabetes mellitus without complications Status: Acute Subjective Subjective Date/Time Seen: 01/19/24 15:49 Interval history: Still bloated, now with nausea and vomiting. No flatus or BM. No fevers. Exam GI: Inspection: distended, visible herniation (umbilicus) and other (Pigtail drain with scant purulent output) GI Palp: Yes Soft to palpation, Yes Tenderness to palpation present (GI) (slightly less than before), No Guarding due to palpation present (GI) and No Rebound tenderness present Auscultation: Hypoactive bowel sounds present Objective Data Vital Signs Vital Signs: Vital Signs - 24 hr 01/18/24 16:00 01/18/24 18:23 01/18/24 20:00 Temperature 36.8 C Pulse Rate 84 84 Respiratory Rate 16 16 Blood Pressure 181/88 H 108/72 Pulse Oximetry 94 94 Oxygen Delivery Room Air 01/18/24 20:00 01/19/24 06:00 01/18/24 22:00 Temperature 37.0 C 36.9 C 37.0 C Pulse Rate 109 H 83 100 Respiratory Rate 18 18 18 Blood Pressure 140/75 158/73 H 140/75 Pulse Oximetry 96 98 96 Oxygen Delivery 01/19/24 09:00 Temperature Pulse Rate Respiratory Rate Blood Pressure Pulse Oximetry Oxygen Delivery Room Air Intake/Output Intake/Output: Intake & Output 01/16/24 01/17/24 01/18/24 01/19/24 23:59 23:59 23:59 23:59 Intake Total 1208.3 2450 1500 1350 Output Total 700 450 508 25 Balance 508.3 2000 992 1325 Meds/Results Medications: Active Medications Generic Name Dose Route Start Last Admin Trade Name Freq PRN Reason Stop Dose Admin Albuterol 2 puff 01/16/24 15:13 Albuterol Sulfate (*Sp) Aerosol 1 Puff INHALATION QID PRN Shortness Of Breath Or Wheezing Dextrose 12.5 gm 01/16/24 15:11 Dextrose 50% 25 Gm/50 Ml Syringe IV PUSH PRN PRN Hypoglycemia Protocol Enoxaparin Sodium 40 mg 01/19/24 09:00 01/19/24 08:58 Enoxaparin 40 Mg/0.4 Ml Syringe SUB-Q 40 mg DAILY GI Administration Fentanyl Citrate 25 mcg 01/19/24 14:56 Fentanyl Citrate Inj (*Crx) 100 Mcg/2 Ml Vial IV PUSH Q2H PRN Pain Rated 7-10 Glucagon 1 mg 01/16/24 15:11 Glucagon For Inj 1 Mg Vial IM PRN PRN Hypoglycemia Protocol Glucose 15 gm 01/16/24 15:11 Glucose Oral Gel 15 Gm Of Glucse In 37.5 Gm Tube PO PRN PRN Hypoglycemia Protocol Hydralazine HCl 20 mg 01/18/24 17:01 01/19/24 15:20 Hydralazine Hcl 20 Mg/Ml Vial IV PUSH 20 mg Q6HR PRN Administration Hypertension Dextros
[2024-01-19 16:26] VITALS: BP 126/63
[2024-01-19] MEDS: FAT EMULSIONS IV 20% 250 ML 20.83 ML IVPB (16:56)
[2024-01-19 21:10] VITALS: BP 178/76; PULSE 90; RESP 16; TEMP 36.9; O2SAT 96
[2024-01-19] MEDS: fentaNYL CITRATE INJ (*CRX) 100 MCG/2 ML VIAL 25 MCG IV PUSH (21:59)
[2024-01-19 23:01] VITALS: BP 178/85; PULSE 97; RESP 20; TEMP 37.3; O2SAT 100
[2024-01-20 00:27] LABS: Glucose Point of Care 195 mg/dl (65-105)
[2024-01-20] MEDS: metroNIDAZOLE 500 MG/ISO 100ML 500 MG/100 ML BAG 100 MG IVPB ×4 (05:14→23:30)
[2024-01-20] MEDS: CENTRAL LINE FLUSH 10 ML IV PUSH ×3 (05:16→20:10)
[2024-01-20 05:25] VITALS: BP 163/94; PULSE 98; RESP 20; TEMP 37.4; O2SAT 96
[2024-01-20] MEDS: INSULIN ASPART (*BKC) 100 UNITS/ML SUB-Q (05:31)
[2024-01-20 05:34] LABS: Glucose Point of Care 212 mg/dl (65-105)
[2024-01-20 05:44] LABS: Hematocrit 37.4 % (37.0-47.0); Hemoglobin 12.8 g/dL (12.0-15.0); Mean Corpuscular HGB Conc 34.2 g/dl (32-36); Mean Corpuscular Hemoglobin 32.6 pg (26-34); Mean Corpuscular Volume 95.2 fl (80-100); Mean Platelet Volume 9.3 fl (7.4-10.4); Platelet Count Result 290 k/mm3 (150-375); Red Blood Count 3.93 M/mm3 (4.2-5.4); Red Cell Distribution Width 13.1 % (11.5-14.5)
[2024-01-20 05:56] LABS: Triglycerides 334 mg/dL (<150)
[2024-01-20 07:05] LABS: Anion Gap 4 mmol/L (4-12); Blood Urea Nitrogen 17 mg/dL (7-17); Calcium 8.5 mg/dL (8.4-10.2); Carbon Dioxide 23 mmol/L (22-30); Chloride 110 mmol/L (98-107); Estimated CRCL calculation 54 ml/min; Estimated Glomerular Filt Rate > 60; Glucose 170 mg/dL (65-110); Phosphorus 2.4 mg/dL (2.5-4.5); Sodium 137 mmol/L (137-145)
[2024-01-20 09:21] VITALS: TEMP 37.4
[2024-01-20] MEDS: ENOXAPARIN 40 MG/0.4 ML SYRINGE SUB-Q (09:23)
[2024-01-20] MEDS: PANTOPRAZOLE SODIUM IV 40 MG VIAL IV PUSH ×2 (09:23→20:06)
[2024-01-20] MEDS: CEFEPIME 2 GM/NS 50 ML 2 GM/50 ML BAG IVPB ×2 (09:23→20:08)
--- NOTE | 2024-01-20 09:23 | P.PNIM_ITS ---
Progress Note: A&P Assessment and Plan (1) Umbilical hernia without obstruction and without gangrene: Code(s): K42.9 - Umbilical hernia without obstruction or gangrene Status: Acute (2) Temporal arteritis: Code(s): M31.6 - Other giant cell arteritis Status: Acute (3) Type 2 diabetes mellitus: Code(s): E11.9 - Type 2 diabetes mellitus without complications Status: Acute (4) Enterocolitis: Code(s): K52.9 - Noninfective gastroenteritis and colitis, unspecified Status: Acute (5) Abdominal abscess: Status: Acute (6) Intra-abdominal abscess: Code(s): K65.1 - Peritoneal abscess Status: Acute (7) Peritonitis: Code(s): K65.9 - Peritonitis, unspecified Status: Acute (8) Partial small bowel obstruction: Code(s): K56.600 - Partial intestinal obstruction, unspecified as to cause Status: Acute (9) Malnutrition: Code(s): E46 - Unspecified protein-calorie malnutrition Status: Acute (10) SIRS (systemic inflammatory response syndrome): Code(s): R65.10 - Systemic inflammatory response syndrome (SIRS) of non-infectious origin without acute organ dysfunction Status: Acute (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(s): 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 - Immunodeficiency due to drugs; T38.0X5A - Adverse effect of glucocorticoids and synthetic analogues, initial encounter; Z79.52 - MCFP (current) use of systemic steroids Status: Acute Plan Gastroenteritis with central ABD abscess and Peritonitis * Initial CT with wall thickening and abscess * General Surgery consulted * Normal WBC today now 24.7 * Swtiched ABX to flaygl and cefepime * Soft BP today * repeat labs, lactic * Repeated CT scan worsening abscess and peritonitis * Pain control * antiemetics * NPO * PICC * TPN started 01/18 01/17: * Swtiched ABX to flaygl and cefepime * absc and paracentesis scheduled today * wbc slightly improved * PICC * start TPN * continue NPO 01/19: * Abscess Culture Ecoli * Acetaminophen suppository low-grade fevers * Antiemtics SBO * NPO * Surgery consulted * may place NG tube for decompression if patient has vomitng * IV fluids * TPN 4/6: * NG tube placed due to persistent vomiting Giant Cell arteritis * Follows with Dr. Vidal Escobedo at [facility] * patient on taper dose of steroids * LM for Dr. Escobedo to update and current status will await any recommendations 01/17: * Dr. Escobedo informed on patient did request a stress dose of hydrocortisone 100mg * will keep him updated HTN * NPO holding home BP medication * Hydralazine IVP PRN for systolic >160 Diabetes * Accu-Cheks a.c. HS * sliding scale insulin * hold oral diabetic medications * on steroid taper for GCA * Watch for hypoglycemia/hypoglycemic protocol ordered Asthma * stable * resumed prn inhalers Moderate protein calorie malnutrition related to reduced appetite and inadequate energy intake as evidenced by Pt report, noted a -9% wt loss within the last 6-9 months with a low BMI of 16.9 , and NFPE findings of moderate subcutaneous fat loss (cheeks) and moderate muscle wasting (buddhism, clavicle). * Advance diet when appropriate * Add Ensure compact TID for additional 220 kcal, 9 g protein per shake Code status: Full code per patient DVT prophylaxis: scd/lovenox Stress ulcer prophylaxis: Protonix 40 BID PT/OT notes: PT/OT on hold Dis
--- NOTE | 2024-01-20 09:23 | PM.IMPN ---
Progress Note: A&P Assessment and Plan (1) Umbilical hernia without obstruction and without gangrene: Code(s): K42.9 - Umbilical hernia without obstruction or gangrene Status: Acute (2) Temporal arteritis: Code(s): M31.6 - Other giant cell arteritis Status: Acute (3) Type 2 diabetes mellitus: Code(s): E11.9 - Type 2 diabetes mellitus without complications Status: Acute (4) Enterocolitis: Code(s): K52.9 - Noninfective gastroenteritis and colitis, unspecified Status: Acute (5) Abdominal abscess: Status: Acute (6) Intra-abdominal abscess: Code(s): K65.1 - Peritoneal abscess Status: Acute (7) Peritonitis: Code(s): K65.9 - Peritonitis, unspecified Status: Acute (8) Partial small bowel obstruction: Code(s): K56.600 - Partial intestinal obstruction, unspecified as to cause Status: Acute (9) Malnutrition: Code(s): E46 - Unspecified protein-calorie malnutrition Status: Acute (10) SIRS (systemic inflammatory response syndrome): Code(s): R65.10 - Systemic inflammatory response syndrome (SIRS) of non-infectious origin without acute organ dysfunction Status: Acute (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(s): D84.821 - Immunodeficiency due to drugs; T38.0X5A - Adverse effect of glucocorticoids and synthetic analogues, initial encounter; Z79.52 - retirement (current) use of systemic steroids Status: Acute Plan Gastroenteritis with central ABD abscess and Peritonitis Initial CT with wall thickening and abscess General Surgery consulted Normal WBC today now 24.7 Swtiched ABX to flaygl and cefepime Soft BP today repeat labs, lactic Repeated CT scan worsening abscess and peritonitis Pain control antiemetics NPO PICC TPN started 01/18 01/17: Swtiched ABX to flaygl and cefepime absc and paracentesis scheduled today wbc slightly improved PICC start TPN continue NPO 01/19: Abscess Culture Ecoli Acetaminophen suppository low-grade fevers Antiemtics SBO NPO Surgery consulted may place NG tube for decompression if patient has vomitng IV fluids TPN 01/19: NG tube placed due to persistent vomiting Giant Cell arteritis Follows with Dr. Vidal Escobedo at [facility] patient on taper dose of steroids LM for Dr. Escobedo to update and current status will await any recommendations 01/17: Dr. Escobedo informed on patient did request a stress dose of hydrocortisone 100mg will keep him updated HTN NPO holding home BP medication Hydralazine IVP PRN for systolic >160 Diabetes Accu-Cheks a.c. HS sliding scale insulin hold oral diabetic medications on steroid taper for GCA Watch for hypoglycemia/hypoglycemic protocol ordered Asthma stable resumed prn inhalers Moderate protein calorie malnutrition related to reduced appetite and inadequate energy intake as evidenced by Pt report, noted a -9% wt loss within the last 6-9 months with a low BMI of 16.9 , and NFPE findings of moderate subcutaneous fat loss (cheeks) and moderate muscle wasting (jew, clavicle). Advance diet when appropriate Add Ensure compact TID for additional 220 kcal, 9 g protein per shake Code status: Full code per patient DVT prophylaxis: scd/lovenox Stress ulcer prophylaxis: Protonix 40 BID PT/OT notes: PT/OT on hold Disposition: Patient continues NPO for peritonitis drainage tube and paracentisis scheduled for today and TPN to be started. PT/OT pending and will speak with family regarding discharge planning when medically stable. Time Spent With Patient Time with patient: 15 - 25 minutes Subjective Date/time seen: 01/20/24 09:23 Interval history: Admission: This is an 83-year-old female with history of stroke, hypertension, dyslipidemia, giant cell arteritis, asthma, and depression who presented to the emergency department for evaluation of abdominal pain
[2024-01-20 09:38] VITALS: BP 171/85
[2024-01-20] MEDS: hydrALAZINE HCL 20 MG/ML VIAL IV PUSH ×2 (09:40→21:05)
[2024-01-20 11:40] LABS: Glucose Point of Care 191 mg/dl (65-105)
--- NOTE | 2024-01-20 12:18 | WPDPN ---
Progress Note: A&P Assessment and Plan (1) Partial small bowel obstruction: Code(s): K56.600 - Partial intestinal obstruction, unspecified as to cause Status: Acute Assessment and Plan: Seems to be improving. She had a small bowel movement today. She still has abdominal distension. Will keep the nasogastric tube in place today and see if she can may be tolerated a trial of nasogastric clamping tomorrow. Continue NPO. Will continue TPN today. (2) Intra-abdominal abscess: Code(s): K65.1 - Peritoneal abscess Status: Acute Assessment and Plan: Abscess has been drained. Continue IV antibiotics. Output from drain is still purulent but decreasing. A likely repeat CT scan and early next week. Subjective Date/time seen: 01/20/24 12:18 Interval history: Patient is doing better today. No nausea since nasogastric tube was placed. She has been sleeping quite a bit but according to family she had a small bowel movement today. She feels like she is needing to pass some gas. She continues on TPN. White blood cell count has decreased from 18,000 down the 13,000. No fever. Exam GI: Other: Abdomen is soft and moderately distended. Bowel sounds are noted. Umbilical hernia is easily reducible. There is some mild diffuse tenderness but no rebound or peritoneal signs. Abdominal drain in place without redness or drainage around the drain. Small amount of purulent drainage. Objective Data Vital Signs Vital Signs: Vital Signs - 24 hr 01/19/24 14:00 01/19/24 16:26 01/19/24 20:00 Temperature 36.9 C Pulse Rate 86 Respiratory Rate 18 Blood Pressure 182/78 H 126/63 Pulse Oximetry 96 Oxygen Delivery Room Air 01/19/24 21:10 01/19/24 23:01 01/20/24 05:25 Temperature 36.9 C 37.3 C 37.4 C Pulse Rate 90 97 98 Respiratory Rate 16 20 20 Blood Pressure 178/76 H 178/85 H 163/94 H Pulse Oximetry 96 100 96 Oxygen Delivery 01/20/24 09:21 01/20/24 09:38 01/20/24 09:15 Temperature 37.4 C Pulse Rate Respiratory Rate Blood Pressure 171/85 H Pulse Oximetry Oxygen Delivery Room Air Intake/Output Intake/Output: Intake & Output 01/17/24 01/18/24 01/19/2424 23:59 23:59 23:59 23:59 Intake Total 2450 1500 2465.0 100 Output Total 450 508 75 Balance 2000 992 2390.0 100 Meds/Results Medications: Active Medications Generic Name Dose Route Start Last Admin Trade Name Freq PRN Reason Stop Dose Admin Acetaminophen 650 mg 01/20/24 10:49 Acetaminophen 650 Mg Suppository RECTAL Q6H PRN Mild Pain (1-3) or Fever Albuterol 2 puff 01/16/24 15:13 Albuterol Sulfate (*Sp) Aerosol 1 Puff INHALATION QID PRN Shortness Of Breath Or Wheezing Dextrose 12.5 gm 01/16/24 15:11 Dextrose 50% 25 Gm/50 Ml Syringe IV PUSH PRN PRN Hypoglycemia Protocol Enoxaparin Sodium 40 mg 01/19/24 09:00 01/20/24 09:23 Enoxaparin 40 Mg/0.4 Ml Syringe SUB-Q 40 mg DAILY GI Administration Fentanyl Citrate 25 mcg 01/19/24 14:56 01/19/24 21:59 Fentanyl Citrate Inj (*Crx) 100 Mcg/2 Ml Vial IV PUSH 25 mcg Q2H PRN Administration Pain Rated 7-10 Glucagon 1 mg 01/16/24 15:11 Glucagon For Inj 1 Mg Vial IM PRN PRN Hypoglycemia Protocol Glucose 15 gm 01/16/24 15:11 Glucose Oral Gel 15 Gm Of Glucse In 37.5 Gm Tube PO PRN PRN Hypoglycemia Protocol Hydralazine HCl 20 mg 01/18/24 17:01 01/20/24 09:40 Hydralazine Hcl 20 Mg/Ml Vial IV PUSH 20 mg Q6HR PRN Administration Hypertension Dextrose 1,000 mls @ 100 mls/hr 01/16/24 15:11 Dextrose 5% 1,000 Ml IVPB PRN PRN Hypoglycemia Protocol Sodium Chloride 1,000 mls @ 100 mls/hr 01/17/24 08:35 01/20/24 05:16 Normal Saline Iv IV CONT Not Given .Q10H GI Cefepime HCl 2 gm in 50 mls @ 100 mls/hr 01/17/24 11:10 01/20/24 09:23 Maxipime 2 Gm/Ns 50 Ml IVPB 100 mls/hr Q12HR SC
[2024-01-20] MEDS: AMINO ACIDS 5%/D15W/E-LYTES/CA 2,000 ML with MULTIVITAMINS-12 INJ VIAL 1 2.5 ML, MULTIV... 40 ML IV CONT (12:56)
[2024-01-20] MEDS: ONDANSETRON INJ 4 MG/2 ML VIAL IV PUSH ×2 (13:03→20:08)
[2024-01-20 13:49] VITALS: BP 143/72; PULSE 101; RESP 20; TEMP 36.5; O2SAT 98
[2024-01-20] MEDS: FAT EMULSIONS IV 20% 250 ML 20.83 ML IVPB (16:05)
[2024-01-20 18:59] LABS: Glucose Point of Care 172 mg/dl (65-105)
[2024-01-20 21:00] VITALS: BP 176/83; PULSE 82; RESP 22; TEMP 36.6; O2SAT 100
[2024-01-20] MEDS: SODIUM CHLORIDE 0.9% IV 1,000 ML 100 ML IV CONT (23:29)
[2024-01-21 00:08] LABS: Glucose Point of Care 171 mg/dl (65-105)
[2024-01-21 01:17] LABS: Toxigenic C. Diff NEGATIVE (NEGATIVE)
[2024-01-21] MEDS: CENTRAL LINE FLUSH 10 ML IV PUSH ×3 (05:15→20:38)
[2024-01-21] MEDS: metroNIDAZOLE 500 MG/ISO 100ML 500 MG/100 ML BAG 100 MG IVPB ×3 (05:15→17:27)
[2024-01-21 05:30] VITALS: BP 154/76; PULSE 89; RESP 18; TEMP 37.2; O2SAT 98
[2024-01-21 05:38] LABS: Glucose Point of Care 184 mg/dl (65-105)
[2024-01-21 05:40] LABS: Hematocrit 38.7 % (37.0-47.0); Hemoglobin 12.8 g/dL (12.0-15.0); Mean Corpuscular HGB Conc 33.1 g/dl (32-36); Mean Corpuscular Hemoglobin 31.4 pg (26-34); Mean Corpuscular Volume 95.1 fl (80-100); Platelet Count Result 287 k/mm3 (150-375); Red Blood Count 4.07 M/mm3 (4.2-5.4); Red Cell Distribution Width 12.9 % (11.5-14.5); White Blood Count 12.9 K/mm3 (4.5-10.0)
[2024-01-21 05:51] LABS: Anion Gap 3 mmol/L (4-12); Blood Urea Nitrogen 18 mg/dL (7-17); Calcium 8.3 mg/dL (8.4-10.2); Carbon Dioxide 25 mmol/L (22-30); Chloride 108 mmol/L (98-107); Estimated CRCL calculation 66 ml/min; Estimated Glomerular Filt Rate > 60; Glucose 162 mg/dL (65-110); Phosphorus 2.6 mg/dL (2.5-4.5); Potassium 2.9 mmol/L (3.4-5.0); Sodium 136 mmol/L (137-145)
--- NOTE | 2024-01-21 07:51 | P.PNIM_ITS ---
Progress Note: A&P Assessment and Plan (1) Umbilical hernia without obstruction and without gangrene: Code(s): K42.9 - Umbilical hernia without obstruction or gangrene Status: Acute (2) Temporal arteritis: Code(s): M31.6 - Other giant cell arteritis Status: Acute (3) Type 2 diabetes mellitus: Code(s): E11.9 - Type 2 diabetes mellitus without complications Status: Acute (4) Enterocolitis: Code(s): K52.9 - Noninfective gastroenteritis and colitis, unspecified Status: Acute (5) Abdominal abscess: Status: Acute (6) Intra-abdominal abscess: Code(s): K65.1 - Peritoneal abscess Status: Acute (7) Peritonitis: Code(s): K65.9 - Peritonitis, unspecified Status: Acute (8) Partial small bowel obstruction: Code(s): K56.600 - Partial intestinal obstruction, unspecified as to cause Status: Acute (9) Malnutrition: Code(s): E46 - Unspecified protein-calorie malnutrition Status: Acute (10) SIRS (systemic inflammatory response syndrome): Code(s): R65.10 - Systemic inflammatory response syndrome (SIRS) of non-infectious origin without acute organ dysfunction Status: Acute (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(s): D84.821 - Immunodeficiency due to drugs; T38.0X5A - Adverse effect of glucocorticoids and synthetic analogues, initial encounter; Z79.52 - snf (current) use of systemic steroids Status: Acute Plan Gastroenteritis with central ABD abscess and Peritonitis * Initial CT with wall thickening and abscess * General Surgery consulted * Normal WBC today now 24.7 * Swtiched ABX to flaygl and cefepime * Soft BP today * repeat labs, lactic * Repeated CT scan worsening abscess and peritonitis * Pain control * antiemetics * NPO * PICC * TPN started 01/18 01/17: * Swtiched ABX to flaygl and cefepime * absc and paracentesis scheduled today * wbc slightly improved * PICC * start TPN * continue NPO 01/19: * Abscess Culture Ecoli * Acetaminophen suppository low-grade fevers * Antiemtics 01/20: * Ecoli sensitivity still pending * WBC improving * no emesis * NG removed * clear liquid advance per surgery * Loss stool * C-diff negative/diarrhea likely secondary to TPN * CT ABD in the am SBO * NPO * Surgery consulted * may place NG tube for decompression if patient has vomitng * IV fluids * TPN 01/19: * NG tube placed due to persistent vomiting 01/20: * NG removed * hopefully we can transition to clear liquids * BM with diarrhea likely due to TPN c-diff done and negative Giant Cell arteritis * Follows with Dr. Vidal Escobedo at [facility] * patient on taper dose of steroids * LM for Dr. Escobedo to update and current status will await any recommendations 01/17: * Dr. Escobedo informed on patient did request a stress dose of hydrocortisone 100mg * will keep him updated HTN * NPO holding home BP medication * Hydralazine IVP PRN for systolic >160 Diabetes * Accu-Cheks a.c. HS * sliding scale insulin * hold oral diabetic medications * on steroid taper for GCA * Watch for hypoglycemia/hypoglycemic protocol ordered Asthma * stable * resumed prn inhalers Moderate protein calorie malnutrition related to reduced appetite and inadequate energy intake as evidenced by Pt report, noted a -9% wt loss within the last 6-9 months with a low BMI of 16.9 , and NFPE findings of moderate subcutaneous fat loss (cheeks) and m
--- NOTE | 2024-01-21 07:51 | PM.IMPN ---
Progress Note: A&P Assessment and Plan (1) Umbilical hernia without obstruction and without gangrene: Code(s): K42.9 - Umbilical hernia without obstruction or gangrene Status: Acute (2) Temporal arteritis: Code(s): M31.6 - Other giant cell arteritis Status: Acute (3) Type 2 diabetes mellitus: Code(s): E11.9 - Type 2 diabetes mellitus without complications Status: Acute (4) Enterocolitis: Code(s): K52.9 - Noninfective gastroenteritis and colitis, unspecified Status: Acute (5) Abdominal abscess: Status: Acute (6) Intra-abdominal abscess: Code(s): K65.1 - Peritoneal abscess Status: Acute (7) Peritonitis: Code(s): K65.9 - Peritonitis, unspecified Status: Acute (8) Partial small bowel obstruction: Code(s): K56.600 - Partial intestinal obstruction, unspecified as to cause Status: Acute (9) Malnutrition: Code(s): E46 - Unspecified protein-calorie malnutrition Status: Acute (10) SIRS (systemic inflammatory response syndrome): Code(s): R65.10 - Systemic inflammatory response syndrome (SIRS) of non-infectious origin without acute organ dysfunction Status: Acute (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(s): D84.821 - Immunodeficiency due to drugs; T38.0X5A - Adverse effect of glucocorticoids and synthetic analogues, initial encounter; Z79.52 - FPC (current) use of systemic steroids Status: Acute Plan Gastroenteritis with central ABD abscess and Peritonitis Initial CT with wall thickening and abscess General Surgery consulted Normal WBC today now 24.7 Swtiched ABX to flaygl and cefepime Soft BP today repeat labs, lactic Repeated CT scan worsening abscess and peritonitis Pain control antiemetics NPO PICC TPN started 01/18 01/17: Swtiched ABX to flaygl and cefepime absc and paracentesis scheduled today wbc slightly improved PICC start TPN continue NPO 01/19: Abscess Culture Ecoli Acetaminophen suppository low-grade fevers Antiemtics 01/20: Ecoli sensitivity still pending WBC improving no emesis NG removed clear liquid advance per surgery Loss stool C-diff negative/diarrhea likely secondary to TPN CT ABD in the am SBO NPO Surgery consulted may place NG tube for decompression if patient has vomitng IV fluids TPN 01/19: NG tube placed due to persistent vomiting 01/20: NG removed hopefully we can transition to clear liquids BM with diarrhea likely due to TPN c-diff done and negative Giant Cell arteritis Follows with Dr. Vidal Escobedo at [facility] patient on taper dose of steroids LM for Dr. Escobedo to update and current status will await any recommendations 01/17: Dr. Escobedo informed on patient did request a stress dose of hydrocortisone 100mg will keep him updated HTN NPO holding home BP medication Hydralazine IVP PRN for systolic >160 Diabetes Accu-Cheks a.c. HS sliding scale insulin hold oral diabetic medications on steroid taper for GCA Watch for hypoglycemia/hypoglycemic protocol ordered Asthma stable resumed prn inhalers Moderate protein calorie malnutrition related to reduced appetite and inadequate energy intake as evidenced by Pt report, noted a -9% wt loss within the last 6-9 months with a low BMI of 16.9 , and NFPE findings of moderate subcutaneous fat loss (cheeks) and moderate muscle wasting (christian, clavicle). Advance diet when appropriate Add Ensure compact TID for additional 220 kcal, 9 g protein per shake Code status: Full code per patient DVT prophylaxis: scd/lovenox Stress ulcer prophylaxis: Protonix 40 BID PT/OT notes: PT/OT on hold Disposition: Patient continues admission for peritonitis continue with IV antibiotics pending sensitivity showing E coli and abscess, plan to remove NG tube and advance diet with F/U CT ABD in the am Time Spent With Patient Time with
[2024-01-21] MEDS: CEFEPIME 2 GM/NS 50 ML 2 GM/50 ML BAG IVPB ×2 (08:12→20:37)
[2024-01-21] MEDS: ENOXAPARIN 40 MG/0.4 ML SYRINGE SUB-Q (08:12)
[2024-01-21] MEDS: PANTOPRAZOLE SODIUM IV 40 MG VIAL IV PUSH ×2 (08:12→20:37)
--- NOTE | 2024-01-21 09:42 | WPDPN ---
Progress Note: A&P Assessment and Plan (1) Partial small bowel obstruction: Code(s): K56.600 - Partial intestinal obstruction, unspecified as to cause Status: Acute Assessment and Plan: Patient not having bowel movements. Appears a partial small-bowel obstruction is resolving. We will go and remove the nasogastric tube today and start her on some clear liquids with some Ensure. (2) Intra-abdominal abscess: Code(s): K65.1 - Peritoneal abscess Status: Acute Assessment and Plan: Abdominal abscess has been drained from her perforated appendix. White blood cell count is stable. Will repeat CT scan abdomen pelvis tomorrow with IV contrast and the abscess is resolved then likely can remove the drain. (3) Malnutrition: Code(s): E46 - Unspecified protein-calorie malnutrition Status: Acute Assessment and Plan: Last albumin was 3.4. She continues on TPN. We will continue TPN again today until we make sure she is tolerating and the p.o. intake to meet her nutritional goals. Subjective Date/time seen: 01/21/24 09:42 Interval history: Patient doing better today. She is sitting up in a chair. She apparently had 3 bowel movements overnight. No nausea or vomiting. Abdominal drain output is low. White blood cell count is stable at 12,900 thousand nine hundred. No fever. No tachycardia. Exam Const: General: comfortable and no acute distress GI: Other: Abdomen is soft and nondistended. Abdominal drain site is clean dry and intact. Output is low. Abdomen is nontender and relatively benign. Objective Data Vital Signs Vital Signs: Vital Signs - 24 hr 01/20/24 13:49 01/20/24 20:00 01/20/24 21:00 Temperature 36.5 C 36.6 C Pulse Rate 101 H 82 Respiratory Rate 20 22 H Blood Pressure 143/72 H 176/83 H Pulse Oximetry 98 100 Oxygen Delivery Room Air 01/21/24 05:30 Temperature 37.2 C Pulse Rate 89 Respiratory Rate 18 Blood Pressure 154/76 H Pulse Oximetry 98 Oxygen Delivery Intake/Output Intake/Output: Intake & Output 01/18/24 01/19/24 01/20/24 01/21/24 23:59 23:59 23:59 23:59 Intake Total 1500 2465.0 2417.4 550 Output Total 508 75 400 Balance 992 2390.0 2017.4 550 Meds/Results Medications: Active Medications Generic Name Dose Route Start Last Admin Trade Name Freq PRN Reason Stop Dose Admin Acetaminophen 650 mg 01/20/24 10:49 Acetaminophen 650 Mg Suppository RECTAL Q6H PRN Mild Pain (1-3) or Fever Albuterol 2 puff 01/16/24 15:13 Albuterol Sulfate (*Sp) Aerosol 1 Puff INHALATION QID PRN Shortness Of Breath Or Wheezing Artificial Tears 1 drop 01/20/24 14:13 Artificial Tears Ophth Soln 15 Ml Bottle EACH EYE QID PRN Dry Eye(s) Dextrose 12.5 gm 01/16/24 15:11 Dextrose 50% 25 Gm/50 Ml Syringe IV PUSH PRN PRN Hypoglycemia Protocol Enoxaparin Sodium 40 mg 01/19/24 09:00 01/21/24 08:12 Enoxaparin 40 Mg/0.4 Ml Syringe SUB-Q 40 mg DAILY GI Administration Fentanyl Citrate 25 mcg 01/19/24 14:56 01/19/24 21:59 Fentanyl Citrate Inj (*Crx) 100 Mcg/2 Ml Vial IV PUSH 25 mcg Q2H PRN Administration Pain Rated 7-10 Glucagon 1 mg 01/16/24 15:11 Glucagon For Inj 1 Mg Vial IM PRN PRN Hypoglycemia Protocol Glucose 15 gm 01/16/24 15:11 Glucose Oral Gel 15 Gm Of Glucse In 37.5 Gm Tube PO PRN PRN Hypoglycemia Protocol Hydralazine HCl 20 mg 01/18/24 17:01 01/20/24 21:05 Hydralazine Hcl 20 Mg/Ml Vial IV PUSH 20 mg Q6HR PRN Administration Hypertension Dextrose 1,000 mls @ 100 mls/hr 01/16/24 15:11 Dextrose 5% 1,000 Ml IVPB PRN PRN Hypoglycemia Protocol Sodium Chloride 1,000 mls @ 50 mls/hr 01/17/24 08:35 01/20/24 23:29 Normal Saline Iv IV CONT 100 mls/hr .Q20H GI Administration Cefepime HCl 2 gm in 50 mls @ 100 mls/hr 01/17/24 11:10 01/21/24 08:12 Maxipime 2
[2024-01-21] MEDS: KCL 40 MEQ/WATER 100 ML 100 ML 25 ML IVPB (12:51)
[2024-01-21 12:54] LABS: Glucose Point of Care 144 mg/dl (65-105)
[2024-01-21] MEDS: AMINO ACIDS 5%/D15W/E-LYTES/CA 2,000 ML with MULTIVITAMINS-12 INJ VIAL 1 2.5 ML, MULTIV... 40 ML IV CONT (12:57)
[2024-01-21] MEDS: POTASSIUM CHLORIDE 20 MEQ PACKET (FOR LIQUID) 40 MEQ PO (13:01)
[2024-01-21 13:59] VITALS: BP 161/60; PULSE 75; RESP 20; TEMP 36.6; O2SAT 99
[2024-01-21] MEDS: FAT EMULSIONS IV 20% 250 ML 20.83 ML IVPB (16:17)
[2024-01-21] MEDS: SODIUM CHLORIDE 0.9% IV 1,000 ML 100 ML IV CONT (20:39)
[2024-01-21 22:00] VITALS: BP 175/88; PULSE 86; RESP 17; TEMP 36.5; O2SAT 99
[2024-01-22] MEDS: metroNIDAZOLE 500 MG/ISO 100ML 500 MG/100 ML BAG 100 MG IVPB ×4 (00:26→17:03)
[2024-01-22 00:33] LABS: Glucose Point of Care 162 mg/dl (65-105)
[2024-01-22] MEDS: fentaNYL CITRATE INJ (*CRX) 100 MCG/2 ML VIAL 25 MCG IV PUSH (02:50)
[2024-01-22 03:10] VITALS: BP 171/95; PULSE 82; RESP 18; TEMP 36.8; O2SAT 98
[2024-01-22] MEDS: CENTRAL LINE FLUSH 10 ML IV PUSH ×3 (05:26→21:00)
[2024-01-22 05:36] LABS: Basophils Absolute Auto 0.1 K/mm3 (0.0-0.1); Basophils Percent Auto 0.7 % (0.2-1.2); Eosinophils Absolute Auto 0.2 K/mm3 (0-0.3); Eosinophils Percent Auto 1.6 % (0-4.4); Hematocrit 34.7 % (37.0-47.0); Hemoglobin 12.5 g/dL (12.0-15.0); Immature Granulocyte Absolute 0.08 K/mm3 (0.00-0.031); Immature Granulocyte Percent A 0.8 % (0-0.5); Lymphocytes Absolute Auto 1.88 K/mm3 (0.9-3.2); Lymphocytes Percent Auto 18.6 % (18.3-44.2); Mean Corpuscular Hemoglobin 34.1 pg (26-34); Mean Corpuscular Volume 94.6 fl (80-100); Mean Platelet Volume 9.4 fl (7.4-10.4); Monocytes Percent Auto 9.5 % (2.6-8.5); Neutrophils Percent Auto 68.8 % (45.5-73.1); Platelet Count Result 258 k/mm3 (150-375); Red Blood Count 3.67 M/mm3 (4.2-5.4); Red Cell Distribution Width 13.1 % (11.5-14.5); White Blood Count 10.1 K/mm3 (4.5-10.0)
[2024-01-22 05:47] LABS: INR 1.1; Prothrombin Time 14.9 Seconds (11.1-14.7)
[2024-01-22 05:48] LABS: Partial Thromboplastin Time 29.8 Seconds (22.3-36.8)
[2024-01-22 06:00] LABS: Alanine Aminotransferase 26 U/L (6-35); Albumin Level 2.6 g/dL (3.5-5.1); Alkaline Phosphatase 35 U/L (38-126); Anion Gap 3 mmol/L (4-12); Aspartate Amino Transferase 49 U/L (14-36); Bilirubin,Total 0.4 mg/dL (0.2-1.3); Blood Urea Nitrogen 15 mg/dL (7-17); Carbon Dioxide 22 mmol/L (22-30); Chloride 103 mmol/L (98-107); Estimated CRCL calculation 54 ml/min; Estimated Glomerular Filt Rate > 60; Glucose 414 mg/dL (65-110); Magnesium 1.8 mg/dL (1.6-2.3); Phosphorus 4.2 mg/dL (2.5-4.5); Sodium 128 mmol/L (137-145); Transferrin 147 mg/dL (206-381)
[2024-01-22 09:04] VITALS: BP 164/89
[2024-01-22 09:27] LABS: Toxigenic C. Diff NEGATIVE (NEGATIVE)
[2024-01-22 09:52] VITALS: O2SAT 97
[2024-01-22] MEDS: cefTRIAXone 2 GM/NS 100 ML 2 GM/100 ML BAG IVPB (10:11)
[2024-01-22] MEDS: ENOXAPARIN 40 MG/0.4 ML SYRINGE SUB-Q (10:15)
[2024-01-22] MEDS: PANTOPRAZOLE SODIUM IV 40 MG VIAL IV PUSH ×2 (10:16→20:58)
[2024-01-22] MEDS: hydrALAZINE HCL 20 MG/ML VIAL IV PUSH (10:17)
[2024-01-22 11:39] LABS: Glucose Point of Care 157 mg/dl (65-105)
--- NOTE | 2024-01-22 12:15 | PM.PNGS ---
Progress Note: A&P Assessment and Plan (1) Partial small bowel obstruction: Code(s): K56.600 - Partial intestinal obstruction, unspecified as to cause Status: Acute Assessment and Plan: Resolved. Bowels are moving. Will advance to full liquids with Ensure supplements. Continue TPN until tolerating substantial diet. Stop the additional maintenance IV fluids. (2) Intra-abdominal abscess: Code(s): K65.1 - Peritoneal abscess Status: Acute Assessment and Plan: Repeat CT scan today suggests perforated appendicitis with abscess decreased in size to 4.7 x 2.6 x 2.0 cm and the percutaneous drain has been slightly withdrawn and now 2 cm away from the fluid collection. Discussed with the Radiologist and he will attempt to reposition the drain tomorrow. Will make her NPO after midnight. WBC continues to trend down and she is clinically improving. Continue IV antibiotics. (3) Malnutrition: Code(s): E46 - Unspecified protein-calorie malnutrition Status: Acute Assessment and Plan: Will advance her diet to full liquids today. She will be NPO after midnight for her procedure tomorrow. Continue TPN for today, and hopefully this can be stopped tomorrow if she is tolerating a substantial diet. Plan I have discussed the patient's case and plan of care with Dr. Daniels. Subjective Subjective Date/Time Seen: 01/22/24 12:15 Patient reports: no new complaints, feels better, tolerating liquids well, flatus, diarrhea and afebrile Interval history: Chart reviewed since last seen. Patient's abdominal pain has improved over the weekend. She reports her abdominal pain is more focused in the right lower quadrant now. She began moving her bowels and is complaining of some diarrhea. She denies any nausea or vomiting. She is tolerating clear liquids this morning. Per the family and patient, they think the perc drain got pulled yesterday when trying to get up and after this they noticed bloody output from the perc drain. Drainage appears less bloody today. Review of Systems Review of Systems: All systems reviewed & are unremarkable except as noted in HPI and below Exam Const: General: comfortable; No acute distress Orientation/consciousness: patient oriented x3 GI: Inspection: other (less distended, still some mild distention mostly in the lower abdomen) GI Palp: Yes Soft to palpation, Yes Tenderness to palpation present (GI) (RLQ), No Guarding due to palpation present (GI), Yes Hernia present umbilical and No Rebound tenderness present Auscultation: normal bowel sounds Other: RLQ percutaneous drain with moderate amount of serous ascites fluid, no purulent drainage Objective Data Vital Signs Vital Signs: Vital Signs - 24 hr 01/21/24 13:59 01/21/24 22:00 01/21/24 20:00 Temperature 97.8 F 97.7 F Pulse Rate 75 86 Respiratory Rate 20 17 Blood Pressure 161/60 H 175/88 H Pulse Oximetry 99 99 Oxygen Delivery Room Air 01/22/24 03:10 01/22/24 09:04 01/22/24 09:52 Temperature 98.2 F Pulse Rate 82 Respiratory Rate 18 Blood Pressure 171/95 H 164/89 H Pulse Oximetry 98 97 Oxygen Delivery Room Air Intake/Output Intake/Output: Intake & Output 01/19/24 01/20/24 01/21/24 01/22/24 23:59 23:59 23:59 23:59 Intake Total 2465.0 2417.4 4005.7 500 Output Total 75 400 30 250 Balance 2390.0 2017.4 3975.7 250 Meds/Results Medications: Active Medications Generic Name Dose Route Start Last Admin Trade Name Freq PRN Reason Stop Dose Admin Acetaminophen 650 mg 01/20/24 10:49 Acetaminophen 650 Mg Suppository RECTAL Q6H PRN Mild Pain (1-3) or Fever Albuterol 2 puff 01/16/24 15:13 Albuterol Sulfate (*Sp) Aerosol 1 Puff INHALATION QID PRN Shortness Of Breath Or Wheezing Artificial Tears 1 drop 01/20/24 14:13 Artificial Tears Ophth Soln 15 Ml Bottle EACH EYE QID PRN Dry Eye(s) Dextrose 12.5 gm 01/16/24 1
[2024-01-22] MEDS: HYDROcodone/acetaminophen (*CRX) 7.5-325 MG TABLET 1 TAB PO ×2 (12:54→21:07)
[2024-01-22 14:00] VITALS: BP 128/70; PULSE 87; RESP 18; TEMP 36.5; O2SAT 98
--- NOTE | 2024-01-22 14:19 | P.PNIM_ITS ---
Progress Note: A&P Assessment and Plan (1) Umbilical hernia without obstruction and without gangrene: Code(s): K42.9 - Umbilical hernia without obstruction or gangrene Status: Acute (2) Temporal arteritis: Code(s): M31.6 - Other giant cell arteritis Status: Acute (3) Type 2 diabetes mellitus: Code(s): E11.9 - Type 2 diabetes mellitus without complications Status: Acute (4) Enterocolitis: Code(s): K52.9 - Noninfective gastroenteritis and colitis, unspecified Status: Acute (5) Abdominal abscess: Status: Acute (6) Intra-abdominal abscess: Code(s): K65.1 - Peritoneal abscess Status: Acute (7) Peritonitis: Code(s): K65.9 - Peritonitis, unspecified Status: Acute (8) Partial small bowel obstruction: Code(s): K56.600 - Partial intestinal obstruction, unspecified as to cause Status: Acute (9) Malnutrition: Code(s): E46 - Unspecified protein-calorie malnutrition Status: Acute (10) SIRS (systemic inflammatory response syndrome): Code(s): R65.10 - Systemic inflammatory response syndrome (SIRS) of non-infectious origin without acute organ dysfunction Status: Acute (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(s): 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 - Immunodeficiency due to drugs; T38.0X5A - Adverse effect of glucocorticoids and synthetic analogues, initial encounter; Z79.52 - snf (current) use of systemic steroids Status: Acute Plan Gastroenteritis with central ABD abscess and Peritonitis * Initial CT with wall thickening and abscess * General Surgery consulted * Normal WBC today now 24.7 * Swtiched ABX to flaygl and cefepime * Soft BP today * repeat labs, lactic * Repeated CT scan worsening abscess and peritonitis * Pain control * antiemetics * NPO * PICC * TPN started 01/18 01/17: * Swtiched ABX to flaygl and cefepime * absc and paracentesis scheduled today * wbc slightly improved * PICC * start TPN * continue NPO 01/19: * Abscess Culture Ecoli * Acetaminophen suppository low-grade fevers * Antiemtics 01/20: * Ecoli sensitivity still pending * WBC improving * no emesis * NG removed * clear liquid advance per surgery * Loss stool * C-diff negative/diarrhea likely secondary to TPN * CT ABD in the am 01/21: * CT with perforated appendecitis drain withdrawn from fluid collection * NPO after midnight for reposition CT guided * advanced diet to full liquid continued with TPN SBO-RESOLVED * NPO * Surgery consulted * may place NG tube for decompression if patient has vomitng * IV fluids * TPN 01/19: * NG tube placed due to persistent vomiting 01/20: * NG removed * hopefully we can transition to clear liquids * BM with diarrhea likely due to TPN c-diff done and negative Giant Cell arteritis * Follows with Dr. Vidal Escobedo at [facility] * patient on taper dose of steroids * LM for Dr. Escobedo to update and current status will await any recommendations 01/17: * Dr. Escobedo informed on patient did request a stress dose of hydrocortisone 100mg * will keep him updated HTN * NPO holding home BP medication * Hydralazine IVP PRN for systolic >160 Diabetes * Accu-Cheks a.c. HS * sliding scale insulin * hold oral diabetic medications * on steroid taper for GCA * Watch for hypoglycemia/hypoglycemic protocol ordered Asthma * stable * resumed prn inhalers Moderate protein calorie malnutrition related to reduced azeb
--- NOTE | 2024-01-22 14:19 | PM.IMPN ---
Progress Note: A&P Assessment and Plan (1) Umbilical hernia without obstruction and without gangrene: Code(s): K42.9 - Umbilical hernia without obstruction or gangrene Status: Acute (2) Temporal arteritis: Code(s): M31.6 - Other giant cell arteritis Status: Acute (3) Type 2 diabetes mellitus: Code(s): E11.9 - Type 2 diabetes mellitus without complications Status: Acute (4) Enterocolitis: Code(s): K52.9 - Noninfective gastroenteritis and colitis, unspecified Status: Acute (5) Abdominal abscess: Status: Acute (6) Intra-abdominal abscess: Code(s): K65.1 - Peritoneal abscess Status: Acute (7) Peritonitis: Code(s): K65.9 - Peritonitis, unspecified Status: Acute (8) Partial small bowel obstruction: Code(s): K56.600 - Partial intestinal obstruction, unspecified as to cause Status: Acute (9) Malnutrition: Code(s): E46 - Unspecified protein-calorie malnutrition Status: Acute (10) SIRS (systemic inflammatory response syndrome): Code(s): R65.10 - Systemic inflammatory response syndrome (SIRS) of non-infectious origin without acute organ dysfunction Status: Acute (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(s): D84.821 - Immunodeficiency due to drugs; T38.0X5A - Adverse effect of glucocorticoids and synthetic analogues, initial encounter; Z79.52 - [facility] (current) use of systemic steroids Status: Acute Plan Gastroenteritis with central ABD abscess and Peritonitis Initial CT with wall thickening and abscess General Surgery consulted Normal WBC today now 24.7 Swtiched ABX to flaygl and cefepime Soft BP today repeat labs, lactic Repeated CT scan worsening abscess and peritonitis Pain control antiemetics NPO PICC TPN started 01/18 01/17: Swtiched ABX to flaygl and cefepime absc and paracentesis scheduled today wbc slightly improved PICC start TPN continue NPO 01/19: Abscess Culture Ecoli Acetaminophen suppository low-grade fevers Antiemtics 01/20: Ecoli sensitivity still pending WBC improving no emesis NG removed clear liquid advance per surgery Loss stool C-diff negative/diarrhea likely secondary to TPN CT ABD in the am 01/21: CT with perforated appendecitis drain withdrawn from fluid collection NPO after midnight for reposition CT guided advanced diet to full liquid continued with TPN SBO-RESOLVED NPO Surgery consulted may place NG tube for decompression if patient has vomitng IV fluids TPN 01/19: NG tube placed due to persistent vomiting 01/20: NG removed hopefully we can transition to clear liquids BM with diarrhea likely due to TPN c-diff done and negative Giant Cell arteritis Follows with Dr. Vidal Escobedo at [facility] patient on taper dose of steroids LM for Dr. Escobedo to update and current status will await any recommendations 01/17: Dr. Escobedo informed on patient did request a stress dose of hydrocortisone 100mg will keep him updated HTN NPO holding home BP medication Hydralazine IVP PRN for systolic >160 Diabetes Accu-Cheks a.c. HS sliding scale insulin hold oral diabetic medications on steroid taper for GCA Watch for hypoglycemia/hypoglycemic protocol ordered Asthma stable resumed prn inhalers Moderate protein calorie malnutrition related to reduced appetite and inadequate energy intake as evidenced by Pt report, noted a -9% wt loss within the last 6-9 months with a low BMI of 16.9 , and NFPE findings of moderate subcutaneous fat loss (cheeks) and moderate muscle wasting (christianity, clavicle). Advance diet when appropriate Add Ensure compact TID for additional 220 kcal, 9 g protein per shake Code status: Full code per patient DVT prophylaxis: scd/lovenox Stress ulcer prophylaxis: Protonix 40 BID PT/OT notes: PT/OT on hold Disposition: Patient continues admission for peritonitis
[2024-01-22] MEDS: AMINO ACIDS 5%/D15W/E-LYTES/CA 2,000 ML with MULTIVITAMINS-12 INJ VIAL 1 2.5 ML, MULTIV... 40 ML IV CONT (16:53)
[2024-01-22] MEDS: FAT EMULSIONS IV 20% 250 ML 20.83 ML IVPB (16:53)
[2024-01-22 18:04] LABS: Glucose Point of Care 195 mg/dl (65-105)
[2024-01-22 20:38] LABS: Triglycerides 164 mg/dL (<150)
[2024-01-22 21:09] VITALS: BP 149/67; PULSE 92; RESP 20; TEMP 36.9; O2SAT 98
[2024-01-23] VITALS (17 sets, daily range): BP systolic 145–178; BP diastolic 67–91; PULSE 82–98; RESP 14–21; TEMP 36.2–36.6; O2SAT 96–99
[2024-01-23 00:07] LABS: Glucose Point of Care 152 mg/dl (65-105)
[2024-01-23] MEDS: metroNIDAZOLE 500 MG/ISO 100ML 500 MG/100 ML BAG 100 MG IVPB ×4 (01:44→23:46)
[2024-01-23] MEDS: CENTRAL LINE FLUSH 10 ML IV PUSH ×2 (05:09→20:41)
[2024-01-23 05:20] LABS: Anion Gap 5 mmol/L (4-12); Blood Urea Nitrogen 16 mg/dL (7-17); Calcium 7.8 mg/dL (8.4-10.2); Carbon Dioxide 20 mmol/L (22-30); Chloride 100 mmol/L (98-107); Estimated CRCL calculation 53 ml/min; Estimated Glomerular Filt Rate > 60; Glucose 492 mg/dL (65-110); Phosphorus 4.8 mg/dL (2.5-4.5); Potassium 4.3 mmol/L (3.4-5.0); Sodium 125 mmol/L (137-145)
[2024-01-23 05:37] LABS: Glucose Point of Care 162 mg/dl (65-105)
--- NOTE | 2024-01-23 07:57 | P.PNIM_ITS ---
Progress Note: A&P Assessment and Plan (1) Umbilical hernia without obstruction and without gangrene: Code(s): K42.9 - Umbilical hernia without obstruction or gangrene Status: Acute (2) Temporal arteritis: Code(s): M31.6 - Other giant cell arteritis Status: Acute (3) Type 2 diabetes mellitus: Code(s): E11.9 - Type 2 diabetes mellitus without complications Status: Acute (4) Enterocolitis: Code(s): K52.9 - Noninfective gastroenteritis and colitis, unspecified Status: Acute (5) Abdominal abscess: Status: Acute (6) Intra-abdominal abscess: Code(s): K65.1 - Peritoneal abscess Status: Acute (7) Peritonitis: Code(s): K65.9 - Peritonitis, unspecified Status: Acute (8) Partial small bowel obstruction: Code(s): K56.600 - Partial intestinal obstruction, unspecified as to cause Status: Acute (9) Malnutrition: Code(s): E46 - Unspecified protein-calorie malnutrition Status: Acute (10) SIRS (systemic inflammatory response syndrome): Code(s): R65.10 - Systemic inflammatory response syndrome (SIRS) of non-infectious origin without acute organ dysfunction Status: Acute (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(s): D84.821 - Immunodeficiency due to drugs; T38.0X5A - Adverse effect of glucocorticoids and synthetic analogues, initial encounter; Z79.52 - detention (current) use of systemic steroids Status: Acute Plan Gastroenteritis with central ABD abscess and Peritonitis * Initial CT with wall thickening and abscess * General Surgery consulted * Normal WBC today now 24.7 * Swtiched ABX to flaygl and cefepime * Soft BP today * repeat labs, lactic * Repeated CT scan worsening abscess and peritonitis * Pain control * antiemetics * NPO * PICC * TPN started 01/18 01/17: * Swtiched ABX to flaygl and cefepime * absc and paracentesis scheduled today * wbc slightly improved * PICC * start TPN * continue NPO 01/19: * Abscess Culture Ecoli * Acetaminophen suppository low-grade fevers * Antiemtics 01/20: * Ecoli sensitivity still pending * WBC improving * no emesis * NG removed * clear liquid advance per surgery * Loss stool * C-diff negative/diarrhea likely secondary to TPN * CT ABD in the am 01/21: * CT with perforated appendecitis drain withdrawn from fluid collection * NPO after midnight for reposition CT guided * advanced diet to full liquid continued with TPN SBO-RESOLVED * NPO * Surgery consulted * may place NG tube for decompression if patient has vomitng * IV fluids * TPN 01/19: * NG tube placed due to persistent vomiting 01/20: * NG removed * hopefully we can transition to clear liquids * BM with diarrhea likely due to TPN c-diff done and negative Giant Cell arteritis * Follows with Dr. Vidal Escobedo at [facility] * patient on taper dose of steroids * LM for Dr. Escobedo to update and current status will await any recommendations 01/17: * Dr. Escobedo informed on patient did request a stress dose of hydrocortisone 100mg * will keep him updated HTN * Improving * Hydralazine IVP PRN for systolic >160 Diabetes * Accu-Cheks a.c. HS * sliding scale insulin * hold oral diabetic medications * on steroid taper for GCA * Watch for hypoglycemia/hypoglycemic protocol ordered Asthma * stable * resumed prn inhalers Moderate protein calorie malnutrition related to reduced appetite and inadequate
--- NOTE | 2024-01-23 07:57 | PM.IMPN ---
Progress Note: A&P Assessment and Plan (1) Umbilical hernia without obstruction and without gangrene: Code(s): K42.9 - Umbilical hernia without obstruction or gangrene Status: Acute (2) Temporal arteritis: Code(s): M31.6 - Other giant cell arteritis Status: Acute (3) Type 2 diabetes mellitus: Code(s): E11.9 - Type 2 diabetes mellitus without complications Status: Acute (4) Enterocolitis: Code(s): K52.9 - Noninfective gastroenteritis and colitis, unspecified Status: Acute (5) Abdominal abscess: Status: Acute (6) Intra-abdominal abscess: Code(s): K65.1 - Peritoneal abscess Status: Acute (7) Peritonitis: Code(s): K65.9 - Peritonitis, unspecified Status: Acute (8) Partial small bowel obstruction: Code(s): K56.600 - Partial intestinal obstruction, unspecified as to cause Status: Acute (9) Malnutrition: Code(s): E46 - Unspecified protein-calorie malnutrition Status: Acute (10) SIRS (systemic inflammatory response syndrome): Code(s): R65.10 - Systemic inflammatory response syndrome (SIRS) of non-infectious origin without acute organ dysfunction Status: Acute (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(s): D84.821 - Immunodeficiency due to drugs; T38.0X5A - Adverse effect of glucocorticoids and synthetic analogues, initial encounter; Z79.52 - nursing home (current) use of systemic steroids Status: Acute Plan Gastroenteritis with central ABD abscess and Peritonitis Initial CT with wall thickening and abscess General Surgery consulted Normal WBC today now 24.7 Swtiched ABX to flaygl and cefepime Soft BP today repeat labs, lactic Repeated CT scan worsening abscess and peritonitis Pain control antiemetics NPO PICC TPN started 01/18 01/17: Swtiched ABX to flaygl and cefepime absc and paracentesis scheduled today wbc slightly improved PICC start TPN continue NPO 01/19: Abscess Culture Ecoli Acetaminophen suppository low-grade fevers Antiemtics 01/20: Ecoli sensitivity still pending WBC improving no emesis NG removed clear liquid advance per surgery Loss stool C-diff negative/diarrhea likely secondary to TPN CT ABD in the am 01/21: CT with perforated appendecitis drain withdrawn from fluid collection NPO after midnight for reposition CT guided advanced diet to full liquid continued with TPN SBO-RESOLVED NPO Surgery consulted may place NG tube for decompression if patient has vomitng IV fluids TPN 01/19: NG tube placed due to persistent vomiting 01/20: NG removed hopefully we can transition to clear liquids BM with diarrhea likely due to TPN c-diff done and negative Giant Cell arteritis Follows with Dr. Vidal Escobedo at [facility] patient on taper dose of steroids LM for Dr. Escobedo to update and current status will await any recommendations 01/17: Dr. Escobedo informed on patient did request a stress dose of hydrocortisone 100mg will keep him updated HTN Improving Hydralazine IVP PRN for systolic >160 Diabetes Accu-Cheks a.c. HS sliding scale insulin hold oral diabetic medications on steroid taper for GCA Watch for hypoglycemia/hypoglycemic protocol ordered Asthma stable resumed prn inhalers Moderate protein calorie malnutrition related to reduced appetite and inadequate energy intake as evidenced by Pt report, noted a -9% wt loss within the last 6-9 months with a low BMI of 16.9 , and NFPE findings of moderate subcutaneous fat loss (cheeks) and moderate muscle wasting (anglican, clavicle). Advance diet when appropriate Add Ensure compact TID for additional 220 kcal, 9 g protein per shake Code status: Full code per patient DVT prophylaxis: scd/lovenox Stress ulcer prophylaxis: Protonix 40 BID PT/OT notes: PT/OT on hold Disposition: Patient continues admission for peritonitis and perforated append
[2024-01-23 08:22] LABS: Hematocrit 41.9 % (37.0-47.0); Hemoglobin 13.7 g/dL (12.0-15.0); Mean Corpuscular HGB Conc 32.7 g/dl (32-36); Mean Corpuscular Hemoglobin 31.1 pg (26-34); Mean Corpuscular Volume 95.2 fl (80-100); Mean Platelet Volume 9.3 fl (7.4-10.4); Platelet Count Result 299 k/mm3 (150-375); Red Cell Distribution Width 13.1 % (11.5-14.5); White Blood Count 13.7 K/mm3 (4.5-10.0)
[2024-01-23] MEDS: HYDROcodone/acetaminophen (*CRX) 7.5-325 MG TABLET 1 TAB PO ×2 (09:45→20:41)
[2024-01-23] MEDS: cefTRIAXone 2 GM/NS 100 ML 2 GM/100 ML BAG IVPB (09:49)
[2024-01-23] MEDS: PANTOPRAZOLE SODIUM IV 40 MG VIAL IV PUSH ×2 (09:52→20:41)
[2024-01-23] MEDS: ENOXAPARIN 40 MG/0.4 ML SYRINGE SUB-Q (09:52)
[2024-01-23 10:22] LABS: Alanine Aminotransferase 39 U/L (6-35); Alkaline Phosphatase 50 U/L (38-126); Anion Gap 4 mmol/L (4-12); Aspartate Amino Transferase 49 U/L (14-36); Bilirubin,Total 0.3 mg/dL (0.2-1.3); Blood Urea Nitrogen 16 mg/dL (7-17); Calcium 8.5 mg/dL (8.4-10.2); Carbon Dioxide 26 mmol/L (22-30); Chloride 103 mmol/L (98-107); Estimated CRCL calculation 72 ml/min; Estimated Glomerular Filt Rate > 60; Glucose 150 mg/dL (65-110); Potassium 4.3 mmol/L (3.4-5.0); Sodium 133 mmol/L (137-145)
[2024-01-23 11:55] LABS: Glucose Point of Care 167 mg/dl (65-105)
--- NOTE | 2024-01-23 12:01 | PCNFU ---
Nutrition Follow-Up Complete: Moderate protein calorie malnutrition related to reduced appetite and inadequate energy intake as evidenced by pt report, noted a -9% wt loss within the last 6-9 months with a low BMI of 16.9, and NFPE findings of moderate subcutaneous fat loss (cheeks) and moderate muscle wasting (sabianist, clavicle). Goal:Diet order and tolerance PO intake 50% or greater Pt was progressing towards goal, back to NPO today for a procedure, TPN continues to run and providing 75% of needs Pt current nutrition is NPO / TPN at this time. Nutrition recommendation: resume PO diet post procedure Last recorded weight is 57.5 kg - up from 44.7kg on admission Bowel Motility: +BM 01/21 Labs Reviewed: Na:125, Cr:0.5 Meds Noted: zofran, protonix, lovenox Skin: no skin issues noted Additional Notes: Pt remains NPO, TPN running - Clinimix E 5/15 at 40 ml/hr with 20% Lipid Emulsion. TPN providing 1182 kcals/48 gms protein. This is meeting 75% of energy needs, 100% of protein needs.Pt was eating full liquids yesterday and tolerated well, NPO for procedure today. Agree with orders at this time. Recommend to resume PO diet and supplements post procedure and reduce TPN as appropriate. Monitor for diet order, intake, tolerance, wt, labs. Follow up every Monday and Monday.
--- NOTE | 2024-01-23 14:01 | WPDMODSED ---
Moderate Sedation Note-Pt Data Patient Data Diagnosis: Abdominal abscess. Present Complaint: Abdominal abscess. Procedure to be performed/Plan: CT-guided abdominal abscess drainage. Allergies Allergy/AdvReac Type Severity Reaction Status Date / Time No Known Allergies Allergy Verified 01/15/24 13:12 Home Medications Medication Instructions Recorded Confirmed Type atorvastatin 10 mg tablet 5 mg PO DAILY 11/14/22 01/16/24 History losartan 50 mg tablet 50 mg PO DAILY #90 tabs 12/20/22 01/16/24 Rx albuterol sulfate 90 mcg/actuation 2 puff inhalation QID PRN 01/04/23 01/16/24 History aerosol inhaler (ProAir HFA) Shortness Of Breath Or Wheezing albuterol sulfate 90 mcg/actuation 1 inh inhalation Q4-6H PRN 01/04/23 01/16/24 History breath activated powder inhaler Shortness Of Breath Or Wheezing (ProAir RespiClick) lactobacillus combination no.8 3 3 cell PO DAILY 01/04/23 01/16/24 History billion cell capsule multivit with minerals-iron 18 1 tablet PO DAILY 01/04/23 01/16/24 History mg-folic ac 400 mcg-vit K 25 mcg tablet (Adults Multivitamin) tiotropium bromide 2.5 2 puff inhalation DAILY PRN 01/04/23 01/16/24 History mcg/actuation mist for inhalation Shortness Of Breath Or Wheezing (Spiriva Respimat) blood-glucose meter #1 ea 01/24/23 01/19/24 Rx magnesium oxide 400 mg PO DAILY #90 caps 03/15/23 01/16/24 Rx montelukast 10 mg tablet 10 mg PO HS #90 tabs 03/15/23 01/16/24 Rx (Singulair) methotrexate sodium 2.5 mg tablet 15 mg PO WEEKLY #72 tabs 04/07/23 01/16/24 Rx lancets 33 gauge #100 ea 08/21/23 01/19/24 Rx sertraline 25 mg tablet 25 mg PO DAILY #90 tabs 08/21/23 01/16/24 Rx tramadol 50 mg tablet 50 mg PO Q6H PRN pain #45 tabs 08/25/23 01/16/24 Rx aspirin 25 mg-dipyridamole 200 mg 1 cap PO BID #180 caps 10/23/23 01/16/24 Rx capsule,ext.release 12 hr multiphase trazodone 50 mg tablet 50 mg PO QHS #90 tabs 10/30/23 01/16/24 Rx blood sugar diagnostic #100 ea 12/04/23 01/19/24 Rx cholecalciferol (vitamin D3) 125 125 mcg PO WEEKLY 12/11/23 01/16/24 History mcg (5,000 unit) capsule triamcinolone acetonide 0.1 % 1 applic topical QID #80 grams 12/11/23 01/16/24 Rx topical cream folic acid 1 mg tablet 1 mg PO DAILY 01/15/24 01/16/24 History prednisone 1 mg tablet 3 mg PO DAILY 01/16/24 01/16/24 History tocilizumab 162 mg/0.9 mL 162 mg subcut USEASDIRECTD 01/16/24 01/16/24 History subcutaneous pen injector metformin 500 mg tablet See Rx Instructions .Route 01/22/24 Rx .COMPLEX #360 tabs Current Medications: Active Medications Acetaminophen (Acetaminophen 325 Mg Tablet) 650 mg PO Q4H PRN PRN Reason: Mild Pain (1-3) or Fever Hydrocodone Bitart/Acetaminophen (Hydrocodone/Acetaminophen (*Crx) 5-325 Mg Tablet) 1 tab PO Q4H PRN PRN Reason: Pain Rated 4-6 Hydrocodone Bitart/Acetaminophen (Hydrocodone/Acetaminophen (*Crx) 7.5-325 Mg Tablet) 1 tab PO Q6H PRN PRN Reason: Pain Rated 7-10 Last Admin: 01/23/24 09:45 Dose: 1 tab Albuterol (Albuterol Sulfate (*Sp) Aerosol 1 Puff) 2 puff INHALATION QID PRN PRN Reason: Shortness Of Breath Or Wheezing Artificial Tears (Artificial Tears Ophth Soln 15 Ml Bottle) 1 drop EACH EYE QID PRN PRN Reason: Dry Eye(s) Dextrose (Dextrose 50% 25 Gm/50 Ml Syringe) 12.5 gm IV PUSH PRN PRN; Protocol PRN Reason: Hypoglycemia Enoxaparin Sodium (Enoxaparin 40 Mg/0.4 Ml Syringe) 40 mg SUB-Q DAILY GI Last Admin: 01/23/24 09:52 Dose: 40 mg Fentanyl Citrate (Fentanyl Citrate Inj (*Crx) 100 Mcg/2 Ml Vial) 25 mcg IV PUSH Q2H PRN PRN Reason: Pain Rated 7-10 Last Admin: 01/22/24 02:50 Dose: 25 mcg Glucagon (Glucagon For Inj 1 Mg Vial) 1 mg IM PRN PRN; Protocol PRN Reason: Hypoglycemia Glucose (Glucose Oral Gel 15 Gm Of Glucse In 37.5 Gm Tube) 15 gm PO PRN PRN; Protocol PRN Reason: Hypoglycemia Hydralazine HCl (Hydralazine Hcl 20 Mg/Ml Vial) 20 mg IV PUSH Q6HR PRN PRN Reason: Hypertension Last Admin: 01/22/24 10:17 Dose: 20 mg Dextrose (
--- NOTE | 2024-01-23 14:07 | PM.PNGS ---
Progress Note: A&P Assessment and Plan (1) Partial small bowel obstruction: Code(s): K56.600 - Partial intestinal obstruction, unspecified as to cause Status: Acute Assessment and Plan: Resolved. Bowels are moving. Tolerating a diet, but NPO this morning for procedure. Will continue to advance diet as tolerated after her procedure today. Stop TPN/Clinimix. (2) Intra-abdominal abscess: Code(s): K65.1 - Peritoneal abscess Status: Acute Assessment and Plan: Repeat CT scan yesterday showed perforated appendicitis with drain no longer in the abscess that had decreased slightly in size. The Radiologist is attempting to reposition the drain today. Continue IV antibiotics. Cx growing bacteroides and E.coli. (3) Malnutrition: Code(s): E46 - Unspecified protein-calorie malnutrition Status: Acute Assessment and Plan: Will advance her diet today after her procedure. Stop TPN. Encouraged oral intake, Ensure supplements added. Plan I have discussed the patient's case and plan of care with Dr. Daniels. Subjective Subjective Date/Time Seen: 01/23/24 11:07 Patient reports: no new complaints, feels better, pain is less, tolerating liquids well, flatus, bowel movement and afebrile Interval history: Patient continues to improve. She is still having some RLQ pain but this is improving daily. Bloating has improved. No nausea or vomiting. Tolerated full liquids yesterday but is NPO this morning for her drain repositioning. No other complaints at this time. Exam Const: General: comfortable; No acute distress Orientation/consciousness: patient oriented x3 GI: Inspection: visible herniation (umbilicus) and other (less distended, still some mild distention mostly in the lower abdomen) GI Palp: Yes Soft to palpation and Yes Tenderness to palpation present (GI) (umbilical hernia is tender, and mild RLQ tenderness) Auscultation: normal bowel sounds Other: RLQ percutaneous drain with moderate amount of serous ascites fluid, no purulent drainage Objective Data Vital Signs Vital Signs: Vital Signs - 24 hr 01/22/24 21:09 01/22/24 20:00 01/23/24 05:39 Temperature 98.4 F 97.9 F Pulse Rate 92 92 Respiratory Rate 20 20 Blood Pressure 149/67 H 145/67 H Pulse Oximetry 98 97 Oxygen Delivery Room Air Fraction of Inspired Oxygen 01/23/24 09:12 01/23/24 14:00 Temperature 97.5 F L Pulse Rate 87 Respiratory Rate 16 Blood Pressure 156/79 H Pulse Oximetry 97 97 Oxygen Delivery Room Air Fraction of Inspired Oxygen 21 Intake/Output Intake/Output: Intake & Output 01/20/24 01/21/24 01/22/24 01/23/24 23:59 23:59 23:59 23:59 Intake Total 2417.4 4005.7 2427.3 100 Output Total 400 30 310 10 Balance 2017.4 3975.7 2117.3 90 Meds/Results Medications: Active Medications Generic Name Dose Route Start Last Admin Trade Name Freq PRN Reason Stop Dose Admin Acetaminophen 650 mg 01/22/24 12:35 Acetaminophen 325 Mg Tablet PO Q4H PRN Mild Pain (1-3) or Fever Hydrocodone Bitart/Acetaminophen 1 tab 01/22/24 12:35 Hydrocodone/Acetaminophen (*Crx) 5-325 Mg Tablet PO Q4H PRN Pain Rated 4-6 Hydrocodone Bitart/Acetaminophen 1 tab 01/22/24 12:35 01/23/24 09:45 Hydrocodone/Acetaminophen (*Crx) 7.5-325 Mg Tablet PO 1 tab Q6H PRN Administration Pain Rated 7-10 Albuterol 2 puff 01/16/24 15:13 Albuterol Sulfate (*Sp) Aerosol 1 Puff INHALATION QID PRN Shortness Of Breath Or Wheezing Artificial Tears 1 drop 01/20/24 14:13 Artificial Tears Ophth Soln 15 Ml Bottle EACH EYE QID PRN Dry Eye(s) Dextrose 12.5 gm 01/16/24 15:11 Dextrose 50% 25 Gm/50 Ml Syringe IV PUSH PRN PRN Hypoglycemia Protocol Enoxaparin Sodium 40 mg 01/19/24 09:00 01/23/24 09:52 Enoxaparin 40 Mg/0.4 Ml Syringe SUB-Q 40 mg DAILY GI Administration Fentanyl Citrate 25 mcg 01/19/24 14:56 01/22/24
--- NOTE | 2024-01-23 15:28 | SUR.PHASEII ---
pt brought to CT for drain. 100mcg fentanyl IVP given in total for pain control. RN monitoring vitals Q5min. Pt brought back to [phone] @1505, report called to 3 back office medical assistant. VSS, family at bedside.
[2024-01-23] MEDS: SODIUM CHLORIDE 0.9% INJ 10 ML (20:41)
[2024-01-23 20:53] LABS: Glucose Point of Care 123 mg/dl (65-105)
[2024-01-23] MEDS: SODIUM CHLORIDE 0.9% IV 100 ML (23:46)
[2024-01-24] MEDS: HYDROcodone/acetaminophen (*CRX) 7.5-325 MG TABLET 1 TAB PO ×2 (03:36→16:05)
[2024-01-24] MEDS: ONDANSETRON INJ 4 MG/2 ML VIAL IV PUSH ×2 (04:42→23:49)
[2024-01-24 05:34] VITALS: BP 155/64; PULSE 89; RESP 14; TEMP 37.3; O2SAT 96
[2024-01-24] MEDS: metroNIDAZOLE 500 MG/ISO 100ML 500 MG/100 ML BAG 100 MG IVPB ×4 (05:37→23:46)
[2024-01-24] MEDS: CENTRAL LINE FLUSH 10 ML IV PUSH ×3 (05:37→21:02)
[2024-01-24 06:07] LABS: Hematocrit 35.6 % (37.0-47.0); Hemoglobin 11.9 g/dL (12.0-15.0); Mean Corpuscular HGB Conc 33.4 g/dl (32-36); Mean Corpuscular Hemoglobin 31.2 pg (26-34); Mean Corpuscular Volume 93.4 fl (80-100); Mean Platelet Volume 9.3 fl (7.4-10.4); Platelet Count Result 255 k/mm3 (150-375); Red Blood Count 3.81 M/mm3 (4.2-5.4); Red Cell Distribution Width 13.1 % (11.5-14.5); White Blood Count 11.3 K/mm3 (4.5-10.0)
[2024-01-24 07:46] LABS: Glucose Point of Care 126 mg/dl (65-105)
[2024-01-24] MEDS: ENOXAPARIN 40 MG/0.4 ML SYRINGE SUB-Q (08:31)
[2024-01-24] MEDS: PANTOPRAZOLE SODIUM IV 40 MG VIAL IV PUSH ×2 (08:32→21:01)
[2024-01-24] MEDS: cefTRIAXone 2 GM/NS 100 ML 2 GM/100 ML BAG IVPB (11:12)
[2024-01-24 11:36] LABS: Glucose Point of Care 137 mg/dl (65-105)
[2024-01-24 14:00] VITALS: BP 128/68; PULSE 92; RESP 18; TEMP 37.2; O2SAT 98
--- NOTE | 2024-01-24 14:06 | P.PNIM_ITS ---
Progress Note: A&P Assessment and Plan (1) Intra-abdominal abscess: Code(s): K65.1 - Peritoneal abscess Status: Acute Assessment and Plan: Initial CT with wall thickening and abscess on 01/16/24 * General Surgery consulted and recommendations appreciated * Swtiched ABX to flaygl and cefepime (ABX started on 01/16/24) * Repeated CT scan worsening abscess and peritonitis on 01/17/24 * TPN started 01/19/24 and discontinued on 01/23/24 * Patient under went CT guided abdominal abscess drainage with drain placement on 01/18/24 * Abscess Culture E. coli and Bacteroides fragilis, both pansensitive * C-diff negative/diarrhea likely secondary to TPN * CT ABD on 01/21 showing improved perihepatic abscess although train not placed. * 01/23/[address]-guided drain readjustment * Advanced diet to full liquid continued with TPN (2) Peritonitis: Code(s): K65.9 - Peritonitis, unspecified Status: Acute Assessment and Plan: see above (3) SIRS (systemic inflammatory response syndrome): Code(s): R65.10 - Systemic inflammatory response syndrome (SIRS) of non-infectious origin without acute organ dysfunction Status: Resolved Assessment and Plan: resolved (4) Umbilical hernia without obstruction and without gangrene: Code(s): K42.9 - Umbilical hernia without obstruction or gangrene Status: Acute Assessment and Plan: stable. monitor. (5) Temporal arteritis: Code(s): M31.6 - Other giant cell arteritis Status: Acute Assessment and Plan: * Follows with Dr. Vidal Escobedo at [facility] * patient on taper dose of steroids * Dr. Escobedo informed on patient did request a stress dose of hydrocortisone 100mg on 01/18/24 (6) Type 2 diabetes mellitus: Code(s): E11.9 - Type 2 diabetes mellitus without complications Status: Acute Assessment and Plan: * Accu-Cheks a.c. HS * sliding scale insulin * hold oral diabetic medications * on steroid taper for GCA * Watch for hypoglycemia/hypoglycemic protocol ordered (7) Partial small bowel obstruction: Code(s): K56.600 - Partial intestinal obstruction, unspecified as to cause Status: Acute Assessment and Plan: * Surgery consulted * NG tube placed on 01/20/24 for decompression * NG tube removed on 01/21/24 Resolved. (8) Malnutrition: Code(s): E46 - Unspecified protein-calorie malnutrition Status: Acute Assessment and Plan: Moderate protein calorie malnutrition related to reduced appetite and inadequate energy intake as evidenced by Pt report, noted a -9% wt loss within the last 6-9 months with a low BMI of 16.9 , and NFPE findings of moderate subcutaneous fat loss (cheeks) and moderate muscle wasting (hindu, clavicle). 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 Plan Dr. Vidal Escobedo Striper Machine Subjective Date/time seen: 01/24/24 14:06 Interval history: Patient pain is much improved. Explained to her the need for therapy and she was in agreement with this. She does have more pain
--- NOTE | 2024-01-24 14:06 | PM.IMPN ---
Progress Note: A&P Assessment and Plan (1) Intra-abdominal abscess: Code(s): K65.1 - Peritoneal abscess Status: Acute Assessment and Plan: Initial CT with wall thickening and abscess on 01/16/24 General Surgery consulted and recommendations appreciated Swtiched ABX to flaygl and cefepime (ABX started on 01/16/24) Repeated CT scan worsening abscess and peritonitis on 01/17/24 TPN started 01/19/24 and discontinued on 01/23/[address] guided abdominal abscess drainage with drain placement on 01/18/24 Abscess Culture E. coli and Bacteroides fragilis, both pansensitive C-diff negative/diarrhea likely secondary to TPN CT ABD on 01/21 showing improved perihepatic abscess although train not placed. 01/23/[address]-guided drain readjustment Advanced diet to full liquid continued with TPN (2) Peritonitis: Code(s): K65.9 - Peritonitis, unspecified Status: Acute Assessment and Plan: see above (3) SIRS (systemic inflammatory response syndrome): Code(s): R65.10 - Systemic inflammatory response syndrome (SIRS) of non-infectious origin without acute organ dysfunction Status: Resolved Assessment and Plan: resolved (4) Umbilical hernia without obstruction and without gangrene: Code(s): K42.9 - Umbilical hernia without obstruction or gangrene Status: Acute Assessment and Plan: stable. monitor. (5) Temporal arteritis: Code(s): M31.6 - Other giant cell arteritis Status: Acute Assessment and Plan: Follows with Dr. Vidal Escobedo at [facility] patient on taper dose of steroids Dr. Escobedo informed on patient did request a stress dose of hydrocortisone 100mg on 01/18/24 (6) Type 2 diabetes mellitus: Code(s): E11.9 - Type 2 diabetes mellitus without complications Status: Acute Assessment and Plan: Accu-Cheks a.c. HS sliding scale insulin hold oral diabetic medications on steroid taper for GCA Watch for hypoglycemia/hypoglycemic protocol ordered (7) Partial small bowel obstruction: Code(s): K56.600 - Partial intestinal obstruction, unspecified as to cause Status: Acute Assessment and Plan: Surgery consulted NG tube placed on 01/20/24 for decompression NG tube removed on 01/21/24 Resolved. (8) Malnutrition: Code(s): E46 - Unspecified protein-calorie malnutrition Status: Acute Assessment and Plan: Moderate protein calorie malnutrition related to reduced appetite and inadequate energy intake as evidenced by Pt report, noted a -9% wt loss within the last 6-9 months with a low BMI of 16.9 , and NFPE findings of moderate subcutaneous fat loss (cheeks) and moderate muscle wasting (oriental orthodox, clavicle). 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 Plan Dr. Vidal Escobedo Lithographer Apprentice Subjective Date/time seen: 01/24/24 14:06 Interval history: Patient pain is much improved. Explained to her the need for therapy and she was in agreement with this. She does have more pain when she is active but no pain while lying in bed. She has not had a bowel movement in 2 days. This is not abnormal for her. I also discussed patient's care with General surgery GOVERNOR ASSEMBLER. Attempt to call patient's saddle stitch operator to discuss steroid treatment for the patient. Left him a voicemail. Exam Narrative: GENERAL: Comfortable, no acute distress HENMT: moist mucous membranes EYES: EOM intact b/l NECK: no lymphadenopathy RESPIRATORY: clear to auscultation, no increas
--- NOTE | 2024-01-24 16:09 | PM.PNGS ---
Progress Note: A&P Assessment and Plan (1) Partial small bowel obstruction: Code(s): K56.600 - Partial intestinal obstruction, unspecified as to cause Status: Acute Assessment and Plan: Patient more distended today. Will give Dulcolax suppository today. MiraLax daily. Await return of bowel function. Will get KUB in AM. (2) Intra-abdominal abscess: Code(s): K65.1 - Peritoneal abscess Status: Acute Assessment and Plan: Continue IV antibiotics. Cx growing bacteroides and E.coli. (3) Malnutrition: Code(s): E46 - Unspecified protein-calorie malnutrition Status: Acute Assessment and Plan: Will advance her diet as bowel function returns. Encouraged oral intake, Ensure supplements added. Subjective Subjective Date/Time Seen: 01/24/24 16:09 Interval history: Tolerating full liquids but still feeling a little bloated. Passing some flatus. No BM for a couple days now. Tender in RLQ near drain and at umbilical hernia. Exam GI: Inspection: distended and other (Pigtail drain with serosanguinous output) GI Palp: Yes Firmness to palpation present (GI), Yes Tenderness to palpation present (GI) (RLQ and umbilical), No Guarding due to palpation present (GI) and Yes Hernia present umbilical Objective Data Vital Signs Vital Signs: Vital Signs - 24 hr 01/23/24 21:18 01/23/24 20:00 01/24/24 05:34 Temperature 36.2 C L 37.3 C Pulse Rate 98 89 Respiratory Rate 14 14 Blood Pressure 154/71 H 155/64 H Pulse Oximetry 98 96 Oxygen Delivery Room Air 01/24/24 08:00 01/24/24 14:00 Temperature 37.2 C Pulse Rate 92 Respiratory Rate 18 Blood Pressure 128/68 Pulse Oximetry 98 Oxygen Delivery Room Air Intake/Output Intake/Output: Intake & Output 01/21/24 01/22/24 01/23/24 01/24/24 23:59 23:59 23:59 23:59 Intake Total 4005.7 2427.3 400 1058 Output Total 30 310 115 70 Balance 3975.7 2117.3 285 988 Meds/Results Medications: Active Medications Generic Name Dose Route Start Last Admin Trade Name Freq PRN Reason Stop Dose Admin Acetaminophen 650 mg 01/22/24 12:35 Acetaminophen 325 Mg Tablet PO Q4H PRN Mild Pain (1-3) or Fever Hydrocodone Bitart/Acetaminophen 1 tab 01/22/24 12:35 Hydrocodone/Acetaminophen (*Crx) 5-325 Mg Tablet PO Q4H PRN Pain Rated 4-6 Hydrocodone Bitart/Acetaminophen 1 tab 01/22/24 12:35 01/24/24 16:05 Hydrocodone/Acetaminophen (*Crx) 7.5-325 Mg Tablet PO 1 tab Q6H PRN Administration Pain Rated 7-10 Albuterol 2 puff 01/16/24 15:13 Albuterol Sulfate (*Sp) Aerosol 1 Puff INHALATION QID PRN Shortness Of Breath Or Wheezing Artificial Tears 1 drop 01/20/24 14:13 Artificial Tears Ophth Soln 15 Ml Bottle EACH EYE QID PRN Dry Eye(s) Dextrose 12.5 gm 01/16/24 15:11 Dextrose 50% 25 Gm/50 Ml Syringe IV PUSH PRN PRN Hypoglycemia Protocol Enoxaparin Sodium 40 mg 01/19/24 09:00 01/24/24 08:31 Enoxaparin 40 Mg/0.4 Ml Syringe SUB-Q 40 mg DAILY GI Administration Fentanyl Citrate 25 mcg 01/19/24 14:56 01/22/24 02:50 Fentanyl Citrate Inj (*Crx) 100 Mcg/2 Ml Vial IV PUSH 25 mcg Q2H PRN Administration Pain Rated 7-10 Glucagon 1 mg 01/16/24 15:11 Glucagon For Inj 1 Mg Vial IM PRN PRN Hypoglycemia Protocol Glucose 15 gm 01/16/24 15:11 Glucose Oral Gel 15 Gm Of Glucse In 37.5 Gm Tube PO PRN PRN Hypoglycemia Protocol Hydralazine HCl 20 mg 01/18/24 17:01 01/22/24 10:17 Hydralazine Hcl 20 Mg/Ml Vial IV PUSH 20 mg Q6HR PRN Administration Hypertension Dextrose 1,000 mls @ 100 mls/hr 01/16/24 15:11 Dextrose 5% 1,000 Ml IVPB PRN PRN Hypoglycemia Protocol Metronidazole 500 mg in 100 mls @ 100 mls/hr 01/17/24 12:00 01/24/24 12:10 Flagyl 500 Mg/Iso Soln 100 Ml IVPB 100 mls/hr Q6H IG Administration Dextrose 1,000 mls @ 50 mls/hr
[2024-01-24 17:00] LABS: Glucose Point of Care 122 mg/dl (65-105)
[2024-01-24 21:30] LABS: Glucose Point of Care 124 mg/dl (65-105)
[2024-01-24 22:00] VITALS: BP 157/85; PULSE 91; RESP 16; TEMP 36.8; O2SAT 96
[2024-01-25] MEDS: fentaNYL CITRATE INJ (*CRX) 100 MCG/2 ML VIAL 25 MCG IV PUSH (01:11)
[2024-01-25 06:00] VITALS: BP 165/80; PULSE 92; RESP 16; TEMP 36.8; O2SAT 98
[2024-01-25] MEDS: CENTRAL LINE FLUSH 10 ML IV PUSH ×3 (06:17→22:00)
[2024-01-25] MEDS: metroNIDAZOLE 500 MG/ISO 100ML 500 MG/100 ML BAG 100 MG IVPB ×2 (06:17→12:38)
[2024-01-25 06:36] LABS: Hematocrit 34.8 % (37.0-47.0); Hemoglobin 11.9 g/dL (12.0-15.0); Mean Corpuscular HGB Conc 34.2 g/dl (32-36); Mean Corpuscular Hemoglobin 31.8 pg (26-34); Mean Platelet Volume 9.1 fl (7.4-10.4); Platelet Count Result 285 k/mm3 (150-375); Red Blood Count 3.74 M/mm3 (4.2-5.4); Red Cell Distribution Width 13.1 % (11.5-14.5); White Blood Count 9.1 K/mm3 (4.5-10.0)
[2024-01-25 06:46] LABS: Anion Gap 2 mmol/L (4-12); Blood Urea Nitrogen 12 mg/dL (7-17); Carbon Dioxide 27 mmol/L (22-30); Chloride 103 mmol/L (98-107); Estimated CRCL calculation 59 ml/min; Estimated Glomerular Filt Rate > 60; Glucose 137 mg/dL (65-110); Potassium 3.2 mmol/L (3.4-5.0); Sodium 132 mmol/L (137-145)
[2024-01-25] MEDS: ACETAMINOPHEN 325 MG TABLET 650 MG PO (06:46)
[2024-01-25 07:53] LABS: Glucose Point of Care 140 mg/dl (65-105)
--- NOTE | 2024-01-25 08:07 | P.PNIM_ITS ---
Progress Note: A&P Assessment and Plan (1) Intra-abdominal abscess: Code(s): K65.1 - Peritoneal abscess Status: Acute Assessment and Plan: Initial CT with wall thickening and abscess on 01/16/24 * General Surgery consulted and recommendations appreciated * Swtiched ABX to flaygl and cefepime (ABX started on 01/16/24) --> antibiotics decelerated to p.o. Flagyl and Augmentin on 01/24 * Repeated CT scan worsening abscess and peritonitis on 01/17/24 * TPN started 01/19/24 and discontinued on 01/23/24 * Patient under went CT guided abdominal abscess drainage with drain placement on 01/18/24 * Abscess Culture E. coli and Bacteroides fragilis, both pansensitive * CT ABD on 01/21 showing improved perihepatic abscess although train not placed. * 01/23/[address]-guided drain readjustment * Advanced diet to full liquid * 01/23 suppository given due to lack of bowel movement. * 01/24 spoke with patient's merchandise presentation associate. In patient hold off on initiating steroids until after infection is resolved. (2) Peritonitis: Code(s): K65.9 - Peritonitis, unspecified Status: Acute Assessment and Plan: see above (3) SIRS (systemic inflammatory response syndrome): Code(s): R65.10 - Systemic inflammatory response syndrome (SIRS) of non-infectious origin without acute organ dysfunction Status: Resolved Assessment and Plan: resolved (4) Umbilical hernia without obstruction and without gangrene: Code(s): K42.9 - Umbilical hernia without obstruction or gangrene Status: Acute Assessment and Plan: stable. monitor. (5) Temporal arteritis: Code(s): M31.6 - Other giant cell arteritis Status: Acute Assessment and Plan: * Follows with Dr. Vidal Escobedo at [facility] * patient on taper dose of steroids * Dr. Escobedo informed on patient did request a stress dose of hydrocortisone 100mg on 01/18/24 (6) Type 2 diabetes mellitus: Code(s): E11.9 - Type 2 diabetes mellitus without complications Status: Acute Assessment and Plan: * Accu-Cheks a.c. HS * sliding scale insulin * hold oral diabetic medications * on steroid taper for GCA * Watch for hypoglycemia/hypoglycemic protocol ordered (7) Partial small bowel obstruction: Code(s): K56.600 - Partial intestinal obstruction, unspecified as to cause Status: Acute Assessment and Plan: * Surgery consulted * NG tube placed on 01/20/24 for decompression * NG tube removed on 01/21/24 Resolved. (8) Malnutrition: Code(s): E46 - Unspecified protein-calorie malnutrition Status: Acute Assessment and Plan: Moderate protein calorie malnutrition related to reduced appetite and inadequate energy intake as evidenced by Pt report, noted a -9% wt loss within the last 6-9 months with a low BMI of 16.9 , and NFPE findings of moderate subcutaneous fat loss (cheeks) and moderate muscle wasting (zoroastrianism, clavicle). 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 Plan Dr. Vidal Escobedo
--- NOTE | 2024-01-25 08:07 | PM.IMPN ---
Progress Note: A&P Assessment and Plan (1) Intra-abdominal abscess: Code(s): K65.1 - Peritoneal abscess Status: Acute Assessment and Plan: Initial CT with wall thickening and abscess on 01/16/24 General Surgery consulted and recommendations appreciated Swtiched ABX to flaygl and cefepime (ABX started on 01/16/24) --> antibiotics decelerated to p.o. Flagyl and Augmentin on 01/[address] scan worsening abscess and peritonitis on 01/17/24 TPN started 01/19/24 and discontinued on 01/23/[address] guided abdominal abscess drainage with drain placement on 01/18/24 Abscess Culture E. coli and Bacteroides fragilis, both pansensitive CT ABD on 01/21 showing improved perihepatic abscess although train not placed. 01/23/[address]-guided drain readjustment Advanced diet to full liquid 01/23 suppository given due to lack of bowel movement. 01/24 spoke with patient's spray stainer. In patient hold off on initiating steroids until after infection is resolved. (2) Peritonitis: Code(s): K65.9 - Peritonitis, unspecified Status: Acute Assessment and Plan: see above (3) SIRS (systemic inflammatory response syndrome): Code(s): R65.10 - Systemic inflammatory response syndrome (SIRS) of non-infectious origin without acute organ dysfunction Status: Resolved Assessment and Plan: resolved (4) Umbilical hernia without obstruction and without gangrene: Code(s): K42.9 - Umbilical hernia without obstruction or gangrene Status: Acute Assessment and Plan: stable. monitor. (5) Temporal arteritis: Code(s): M31.6 - Other giant cell arteritis Status: Acute Assessment and Plan: Follows with Dr. Vidal Escobedo at [facility] patient on taper dose of steroids Dr. Escobedo informed on patient did request a stress dose of hydrocortisone 100mg on 01/18/24 (6) Type 2 diabetes mellitus: Code(s): E11.9 - Type 2 diabetes mellitus without complications Status: Acute Assessment and Plan: Accu-Cheks a.c. HS sliding scale insulin hold oral diabetic medications on steroid taper for GCA Watch for hypoglycemia/hypoglycemic protocol ordered (7) Partial small bowel obstruction: Code(s): K56.600 - Partial intestinal obstruction, unspecified as to cause Status: Acute Assessment and Plan: Surgery consulted NG tube placed on 01/20/24 for decompression NG tube removed on 01/21/24 Resolved. (8) Malnutrition: Code(s): E46 - Unspecified protein-calorie malnutrition Status: Acute Assessment and Plan: Moderate protein calorie malnutrition related to reduced appetite and inadequate energy intake as evidenced by Pt report, noted a -9% wt loss within the last 6-9 months with a low BMI of 16.9 , and NFPE findings of moderate subcutaneous fat loss (cheeks) and moderate muscle wasting (christianity, clavicle). 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 Plan Dr. Vidal Escobedo Page Makeup System Operator Subjective Date/time seen: 01/25/24 08:07 Interval history: Patient doing well today. She did good with therapy. She still has not had bowel movement. Her abdomen is fairly distended. She does have a lot of umbilical tenderness due to hernia that is present. Percutaneous drain is still draining bloody fluid. She did have some nausea vomiting last night but that has since improved. She remains on full liquids. Laxatives given to the patient per General surg
[2024-01-25] MEDS: PANTOPRAZOLE SODIUM IV 40 MG VIAL IV PUSH ×2 (09:15→20:25)
[2024-01-25] MEDS: polyethylene glycoL 3350 17 GM POWD.PACK PO (09:15)
[2024-01-25] MEDS: cefTRIAXone 2 GM/NS 100 ML 2 GM/100 ML BAG IVPB (09:15)
[2024-01-25] MEDS: ENOXAPARIN 40 MG/0.4 ML SYRINGE SUB-Q (09:15)
[2024-01-25] MEDS: POTASSIUM CHLORIDE 20 MEQ ER TABLET 40 MEQ PO (09:17)
[2024-01-25 11:20] LABS: Glucose Point of Care 179 mg/dl (65-105)
--- NOTE | 2024-01-25 11:37 | PM.PNGS ---
Progress Note: A&P Assessment and Plan (1) Partial small bowel obstruction: Code(s): K56.600 - Partial intestinal obstruction, unspecified as to cause Status: Acute Assessment and Plan: KUB this morning with normal bowel gas pattern. Gas pains and nausea through the night. Will give a dulcolax suppository today. Continue MiraLax daily. Await return of bowel function. Will keep on full liquids this morning. Hopefully we can advance her diet if her bowels start moving and nausea improves. (2) Intra-abdominal abscess: Code(s): K65.1 - Peritoneal abscess Status: Acute Assessment and Plan: Continue IV antibiotics. Cx growing bacteroides and E.coli. WBC normalized. Monitor percutaneous drain. (3) Malnutrition: Code(s): E46 - Unspecified protein-calorie malnutrition Status: Acute Assessment and Plan: Will advance her diet as bowel function returns. Encouraged oral intake, Ensure supplements added. Plan I have discussed the patient's case and plan of care with Dr. Daniels. Subjective Subjective Date/Time Seen: 01/25/24 11:37 Patient reports: flatus, no bowel movement and nausea Interval history: Patient reports having a lot of gas pains overnight, as well as nausea and dry heaving. Her son told her she did vomit once overnight. She reports having lots of flatus early this morning and she has some relief in her gas pains. She still feels bloated and distended. Her nausea has improved and she was able to tolerate some breakfast. Right lower quadrant pain seems to be improving. White blood cell count normal today. She did not get the Dulcolax suppository that was ordered yesterday. Exam Const: General: comfortable; No acute distress Orientation/consciousness: patient oriented x3 GI: Inspection: distended, visible herniation (umbilicus) and other (Pigtail drain with serosanguinous output) GI Palp: Yes Soft to palpation, Yes Tenderness to palpation present (GI) (Right lower quadrant tenderness improved, tenderness at umbilical hernia), No Guarding due to palpation present (GI) and No Rebound tenderness present Auscultation: Hypoactive bowel sounds present Objective Data Vital Signs Vital Signs: Vital Signs - 24 hr 01/24/24 14:00 01/24/24 22:00 01/25/24 06:00 Temperature 98.9 F 98.2 F 98.3 F Pulse Rate 92 91 92 Respiratory Rate 18 16 16 Blood Pressure 128/68 157/85 H 165/80 H Pulse Oximetry 98 96 98 Oxygen Delivery 01/25/24 08:40 01/25/24 08:00 01/25/24 10:25 Temperature Pulse Rate Respiratory Rate Blood Pressure Pulse Oximetry Oxygen Delivery Room Air Room Air Room Air Intake/Output Intake/Output: Intake & Output 01/22/24 01/23/24 01/24/24 01/25/24 23:59 23:59 23:59 23:59 Intake Total 2427.3 400 1598 875 Output Total 310 115 70 Balance 2117.3 285 1528 875 Meds/Results Medications: Active Medications Generic Name Dose Route Start Last Admin Trade Name Freq PRN Reason Stop Dose Admin Acetaminophen 650 mg 01/22/24 12:35 01/25/24 06:46 Acetaminophen 325 Mg Tablet PO 650 mg Q4H PRN Administration Mild Pain (1-3) or Fever Hydrocodone Bitart/Acetaminophen 1 tab 01/22/24 12:35 Hydrocodone/Acetaminophen (*Crx) 5-325 Mg Tablet PO Q4H PRN Pain Rated 4-6 Hydrocodone Bitart/Acetaminophen 1 tab 01/22/24 12:35 01/24/24 16:05 Hydrocodone/Acetaminophen (*Crx) 7.5-325 Mg Tablet PO 1 tab Q6H PRN Administration Pain Rated 7-10 Albuterol 2 puff 01/16/24 15:13 Albuterol Sulfate (*Sp) Aerosol 1 Puff INHALATION QID PRN Shortness Of Breath Or Wheezing Artificial Tears 1 drop 01/20/24 14:13 Artificial Tears Ophth Soln 15 Ml Bottle EACH EYE QID PRN Dry Eye(s) Dextrose 12.5 gm 01/16/24 15:11 Dextrose 50% 25 Gm/50 Ml Syringe IV PUSH PRN PRN Hypoglycemia Protocol Enoxaparin Sodium 40 mg 01/19/24 09:00 01/25/24 09:15 Enoxaparin 40
[2024-01-25 14:00] VITALS: BP 138/71; PULSE 90; RESP 17; TEMP 36.6; O2SAT 97
[2024-01-25] MEDS: BISACODYL 10 MG SUPPOSITORY RECTAL (15:15)
[2024-01-25 16:28] LABS: Glucose Point of Care 135 mg/dl (65-105)
[2024-01-25] MEDS: metroNIDAZOLE 500 MG TABLET PO (17:14)
[2024-01-25] MEDS: HYDROcodone/acetaminophen (*CRX) 5-325 MG TABLET 1 TAB PO (20:20)
[2024-01-25] MEDS: AMOXICILLIN/CLAVULANATE K 875-125 MG TAB 1 TABLET PO (20:20)
[2024-01-25 20:23] LABS: Glucose Point of Care 146 mg/dl (65-105)
[2024-01-25 21:04] VITALS: BP 146/83; PULSE 76; RESP 14; TEMP 36.1; O2SAT 99
[2024-01-26] MEDS: metroNIDAZOLE 500 MG TABLET PO ×4 (03:00→16:59)
[2024-01-26 05:36] VITALS: BP 144/67; PULSE 86; RESP 13; TEMP 36.4; O2SAT 98
[2024-01-26] MEDS: HYDROcodone/acetaminophen (*CRX) 5-325 MG TABLET 1 TAB PO ×2 (05:41→20:43)
[2024-01-26] MEDS: CENTRAL LINE FLUSH 10 ML IV PUSH ×3 (05:41→20:43)
[2024-01-26 05:59] LABS: Hematocrit 33.4 % (37.0-47.0); Hemoglobin 11.3 g/dL (12.0-15.0); Mean Corpuscular HGB Conc 33.8 g/dl (32-36); Mean Corpuscular Hemoglobin 31.6 pg (26-34); Mean Corpuscular Volume 93.3 fl (80-100); Mean Platelet Volume 9.1 fl (7.4-10.4); Platelet Count Result 295 k/mm3 (150-375); Red Blood Count 3.58 M/mm3 (4.2-5.4); Red Cell Distribution Width 13.2 % (11.5-14.5); White Blood Count 7.3 K/mm3 (4.5-10.0)
[2024-01-26 06:06] LABS: Alanine Aminotransferase 28 U/L (6-35); Albumin Level 2.5 g/dL (3.5-5.1); Alkaline Phosphatase 45 U/L (38-126); Anion Gap -3 mmol/L (4-12); Aspartate Amino Transferase 29 U/L (14-36); Bilirubin,Total 0.4 mg/dL (0.2-1.3); Blood Urea Nitrogen 7 mg/dL (7-17); Carbon Dioxide 30 mmol/L (22-30); Chloride 100 mmol/L (98-107); Estimated CRCL calculation 71 ml/min; Estimated Glomerular Filt Rate > 60; Glucose 125 mg/dL (65-110); Potassium 3.6 mmol/L (3.4-5.0); Sodium 127 mmol/L (137-145)
[2024-01-26 07:40] LABS: Glucose Point of Care 126 mg/dl (65-105)
[2024-01-26] MEDS: AMOXICILLIN/CLAVULANATE K 875-125 MG TAB 1 TABLET PO ×2 (08:46→20:43)
[2024-01-26] MEDS: polyethylene glycoL 3350 17 GM POWD.PACK PO (08:46)
[2024-01-26] MEDS: ENOXAPARIN 40 MG/0.4 ML SYRINGE SUB-Q (08:48)
[2024-01-26] MEDS: PANTOPRAZOLE SODIUM IV 40 MG VIAL IV PUSH ×2 (08:49→20:50)
--- NOTE | 2024-01-26 09:51 | PCNFU ---
Nutrition Follow-Up Complete: Moderate protein calorie malnutrition related to reduced appetite and inadequate energy intake as evidenced by pt report, noted a -9% wt loss within the last 6-9 months with a low BMI of 16.9, and NFPE findings of moderate subcutaneous fat loss (cheeks) and moderate muscle wasting (yarsani, clavicle). Diet order and tolerance - Progressing PO intake 50% or greater - Progressing Goal: Pt current nutrition is Full Liquid with Ensure Enlive BID for additional 350 kcal and 20 g protein each. Nutrition recommendation: Continue to advance diet per surgery as tolerated Last recorded weight is 54.1 kg. Bowel Motility: +3 BMs 01/26/24 Labs Reviewed: 01/26/24: Hgb 11.3, Hcy 33.4, Alb 2.5, Na 127, Cre 0.4, Glu 125 Meds Noted:Protonix, Zofran, Flagyl, Lovenox Skin: Incision to abdomen Additional Notes: Tolerating full liquid diet, still having nausea. Continue care plan per surgery Monitor for diet order, intake, tolerance, wt, labs. Follow up in 3 days.
[2024-01-26 11:46] LABS: Glucose Point of Care 125 mg/dl (65-105)
[2024-01-26 14:00] VITALS: BP 126/54; PULSE 92; RESP 15; TEMP 36.7; O2SAT 98
--- NOTE | 2024-01-26 15:29 | P.PNIM_ITS ---
Progress Note: A&P Assessment and Plan (1) Intra-abdominal abscess: Code(s): K65.1 - Peritoneal abscess Status: Acute Assessment and Plan: Initial CT with wall thickening and abscess on 01/16/24 * General Surgery consulted and recommendations appreciated * Swtiched ABX to flaygl and cefepime (ABX started on 01/16/24) --> antibiotics decelerated to p.o. Flagyl and Augmentin on 01/24 * Repeated CT scan worsening abscess and peritonitis on 01/17/24 * TPN started 01/19/24 and discontinued on 01/23/24 * Patient under went CT guided abdominal abscess drainage with drain placement on 01/18/24 * Abscess Culture E. coli and Bacteroides fragilis, both pansensitive * CT ABD on 01/21 showing improved perihepatic abscess although train not placed. * 01/23/[address]-guided drain readjustment * 01/23 suppository given due to lack of bowel movement. * 01/24 spoke with patient's sea kayaking guide. In patient hold off on initiating steroids until after infection is resolved. * 01/25 Advanced diet to low fiber (2) Peritonitis: Code(s): K65.9 - Peritonitis, unspecified Status: Acute Assessment and Plan: see above (3) SIRS (systemic inflammatory response syndrome): Code(s): R65.10 - Systemic inflammatory response syndrome (SIRS) of non-infectious origin without acute organ dysfunction Status: Resolved Assessment and Plan: resolved (4) Umbilical hernia without obstruction and without gangrene: Code(s): K42.9 - Umbilical hernia without obstruction or gangrene Status: Acute Assessment and Plan: stable. monitor. (5) Temporal arteritis: Code(s): M31.6 - Other giant cell arteritis Status: Acute Assessment and Plan: * Follows with Dr. Vidal Escobedo at [facility] * patient on taper dose of steroids * Dr. Escobedo informed on patient did request a stress dose of hydrocortisone 100mg on 01/18/24 Spoke with patient's sea kayaking guide and he wanted to start steroids if he it was okay with General surgery. General surgery not being comfortable with starting steroids will hold off on steroid therapy until after infection has resolved. (6) Type 2 diabetes mellitus: Code(s): E11.9 - Type 2 diabetes mellitus without complications Status: Acute Assessment and Plan: * Accu-Oanhks bryanc. HS * sliding scale insulin * hold oral diabetic medications * on steroid taper for GCA * Watch for hypoglycemia/hypoglycemic protocol ordered (7) Partial small bowel obstruction: Code(s): K56.600 - Partial intestinal obstruction, unspecified as to cause Status: Acute Assessment and Plan: * Surgery consulted * NG tube placed on 01/20/24 for decompression * NG tube removed on 01/21/24 Resolved. 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 Plan Dr. Vidal Escobedo Organ Teacher Subjective Date/time seen: 01/26/24 15:29 Interval history: patient doing well. She is up independent walking about the room. She is now on p.o
--- NOTE | 2024-01-26 15:29 | PM.IMPN ---
Progress Note: A&P Assessment and Plan (1) Intra-abdominal abscess: Code(s): K65.1 - Peritoneal abscess Status: Acute Assessment and Plan: Initial CT with wall thickening and abscess on 01/16/24 General Surgery consulted and recommendations appreciated Swtiched ABX to flaygl and cefepime (ABX started on 01/16/24) --> antibiotics decelerated to p.o. Flagyl and Augmentin on 01/[address] scan worsening abscess and peritonitis on 01/17/24 TPN started 01/19/24 and discontinued on 01/23/[address] guided abdominal abscess drainage with drain placement on 01/18/24 Abscess Culture E. coli and Bacteroides fragilis, both pansensitive CT ABD on 01/21 showing improved perihepatic abscess although train not placed. 01/23/[address]-guided drain readjustment 01/23 suppository given due to lack of bowel movement. 01/24 spoke with patient's landscape manager. In patient hold off on initiating steroids until after infection is resolved. 01/25 Advanced diet to low fiber (2) Peritonitis: Code(s): K65.9 - Peritonitis, unspecified Status: Acute Assessment and Plan: see above (3) SIRS (systemic inflammatory response syndrome): Code(s): R65.10 - Systemic inflammatory response syndrome (SIRS) of non-infectious origin without acute organ dysfunction Status: Resolved Assessment and Plan: resolved (4) Umbilical hernia without obstruction and without gangrene: Code(s): K42.9 - Umbilical hernia without obstruction or gangrene Status: Acute Assessment and Plan: stable. monitor. (5) Temporal arteritis: Code(s): M31.6 - Other giant cell arteritis Status: Acute Assessment and Plan: Follows with Dr. Vidal Escobedo at [facility] patient on taper dose of steroids Dr. Escobedo informed on patient did request a stress dose of hydrocortisone 100mg on 01/18/24 Spoke with patient's landscape manager and he wanted to start steroids if he it was okay with General surgery. General surgery not being comfortable with starting steroids will hold off on steroid therapy until after infection has resolved. (6) Type 2 diabetes mellitus: Code(s): E11.9 - Type 2 diabetes mellitus without complications Status: Acute Assessment and Plan: Accu-Cheks a.c. HS sliding scale insulin hold oral diabetic medications on steroid taper for GCA Watch for hypoglycemia/hypoglycemic protocol ordered (7) Partial small bowel obstruction: Code(s): K56.600 - Partial intestinal obstruction, unspecified as to cause Status: Acute Assessment and Plan: Surgery consulted NG tube placed on 01/20/24 for decompression NG tube removed on 01/21/24 Resolved. 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 Plan Dr. Vidal Escobedo Medical Claims Processor Subjective Date/time seen: 01/26/24 15:29 Interval history: patient doing well. She is up independent walking about the room. She is now on p.o. antibiotics. Still plan to hold steroids until after antibiotic therapy is completed. Discussed care with General surgery. They are going to evaluate the patient. Once general surgery signed off on the patient she will be able to discharge. Unclear patient will have to go home with drain in place or not. Exam Narrative: GENERAL: Comfortable, no acute distress HENMT: moist mucous membranes EYES: EOM intact b/l NECK: no lymphadenopathy RESPIRATORY: clear to auscultation, no increased respiratory effort CARDIO:
[2024-01-26 16:34] LABS: Glucose Point of Care 148 mg/dl (65-105)
--- NOTE | 2024-01-26 17:21 | PM.PNGS ---
Progress Note: A&P Assessment and Plan (1) Intra-abdominal abscess: Code(s): K65.1 - Peritoneal abscess Status: Acute Assessment and Plan: exam benign, cont drain and abx, ADAT, if doing well tomorrow will dc drain and send home c po abx Subjective Subjective Date/Time Seen: 01/26/24 17:21 Interval history: feels pretty good, pain and pressure largely resolved, +bowel fxn, brigido diet Review of Systems Review of Systems: All systems reviewed & are unremarkable except as noted in HPI and below Exam Const: General: cooperative, comfortable and no acute distress Resp: Auscultation: clear to auscultation bilaterally Cardio: Rate: regular rate Rhythm: regular rhythm GI: Inspection: normal to inspection and non-distended GI Palp: No abdominal tenderness, Yes Soft to palpation and No Tenderness to palpation present (GI) Other: RLQ drain c small amount of s/s drainage Objective Data Vital Signs Vital Signs: Vital Signs - 24 hr 01/25/24 21:04 01/26/24 05:36 01/26/24 08:00 Temperature 36.1 C L 36.4 C Pulse Rate 76 86 Respiratory Rate 14 13 Blood Pressure 146/83 H 144/67 H Pulse Oximetry 99 98 Oxygen Delivery Room Air 01/26/24 14:00 Temperature 36.7 C Pulse Rate 92 Respiratory Rate 15 Blood Pressure 126/54 L Pulse Oximetry 98 Oxygen Delivery Intake/Output Intake/Output: Intake & Output 01/23/24 01/24/24 01/25/24 01/26/24 23:59 23:59 23:59 23:59 Intake Total 400 1598 1610 770 Output Total 115 70 150 Balance 285 1528 1460 770 Meds/Results Medications: Active Medications Generic Name Dose Route Start Last Admin Trade Name Freq PRN Reason Stop Dose Admin Acetaminophen 650 mg 01/22/24 12:35 01/25/24 06:46 Acetaminophen 325 Mg Tablet PO 650 mg Q4H PRN Administration Mild Pain (1-3) or Fever Hydrocodone Bitart/Acetaminophen 1 tab 01/22/24 12:35 01/26/24 05:41 Hydrocodone/Acetaminophen (*Crx) 5-325 Mg Tablet PO 1 tab Q4H PRN Administration Pain Rated 4-6 Hydrocodone Bitart/Acetaminophen 1 tab 01/22/24 12:35 01/24/24 16:05 Hydrocodone/Acetaminophen (*Crx) 7.5-325 Mg Tablet PO 1 tab Q6H PRN Administration Pain Rated 7-10 Albuterol 2 puff 01/16/24 15:13 Albuterol Sulfate (*Sp) Aerosol 1 Puff INHALATION QID PRN Shortness Of Breath Or Wheezing Amoxicillin/Clavulanate Potassium 1 tablet 01/25/24 21:00 01/26/24 08:46 Amoxicillin/Clavulanate K 875-125 Mg Tab PO 01/28/24 21:01 1 tablet Q12HR GI Administration Artificial Tears 1 drop 01/20/24 14:13 Artificial Tears Ophth Soln 15 Ml Bottle EACH EYE QID PRN Dry Eye(s) Dextrose 12.5 gm 01/16/24 15:11 Dextrose 50% 25 Gm/50 Ml Syringe IV PUSH PRN PRN Hypoglycemia Protocol Enoxaparin Sodium 40 mg 01/19/24 09:00 01/26/24 08:48 Enoxaparin 40 Mg/0.4 Ml Syringe SUB-Q 40 mg DAILY GI Administration Fentanyl Citrate 25 mcg 01/19/24 14:56 01/25/24 01:11 Fentanyl Citrate Inj (*Crx) 100 Mcg/2 Ml Vial IV PUSH 25 mcg Q2H PRN Administration Pain Rated 7-10 Glucagon 1 mg 01/16/24 15:11 Glucagon For Inj 1 Mg Vial IM PRN PRN Hypoglycemia Protocol Glucose 15 gm 01/16/24 15:11 Glucose Oral Gel 15 Gm Of Glucse In 37.5 Gm Tube PO PRN PRN Hypoglycemia Protocol Hydralazine HCl 20 mg 01/18/24 17:01 01/22/24 10:17 Hydralazine Hcl 20 Mg/Ml Vial IV PUSH 20 mg Q6HR PRN Administration Hypertension Dextrose 1,000 mls @ 100 mls/hr 01/16/24 15:11 Dextrose 5% 1,000 Ml IVPB PRN PRN Hypoglycemia Protocol Dextrose 1,000 mls @ 50 mls/hr 01/17/24 16:12 Dextrose 10% IV CONT .Q20H PRN if PN is interrupted Insulin Aspart 2 - 5 units 01/16/24 18:00 01/26/24 17:03 Insulin Aspart (*Bkc) 100 Units/Ml SUB-Q Not Given Q6HR GI Protocol Metronidazole 500 mg 01/25/24 18:00 01/26/24 16:59 [facility] 500 M
[2024-01-26 20:21] LABS: Glucose Point of Care 150 mg/dl (65-105)
[2024-01-26 20:26] VITALS: BP 128/63; PULSE 90; RESP 20; TEMP 36.2; O2SAT 99
[2024-01-27] MEDS: HYDROcodone/acetaminophen (*CRX) 7.5-325 MG TABLET 1 TAB PO (02:06)
[2024-01-27] MEDS: metroNIDAZOLE 500 MG TABLET PO ×3 (02:06→12:11)
[2024-01-27 05:33] VITALS: BP 151/76; PULSE 92; RESP 22; TEMP 36.4; O2SAT 98
[2024-01-27] MEDS: CENTRAL LINE FLUSH 10 ML IV PUSH (05:54)
[2024-01-27 06:10] LABS: Hemoglobin 10.9 g/dL (12.0-15.0); Mean Corpuscular HGB Conc 34.1 g/dl (32-36); Mean Corpuscular Hemoglobin 31.6 pg (26-34); Mean Corpuscular Volume 92.8 fl (80-100); Mean Platelet Volume 8.9 fl (7.4-10.4); Platelet Count Result 302 k/mm3 (150-375); Red Blood Count 3.45 M/mm3 (4.2-5.4); Red Cell Distribution Width 13.3 % (11.5-14.5); White Blood Count 7.9 K/mm3 (4.5-10.0)
[2024-01-27 06:28] LABS: Anion Gap -2 mmol/L (4-12); Blood Urea Nitrogen 9 mg/dL (7-17); Calcium 8.3 mg/dL (8.4-10.2); Carbon Dioxide 31 mmol/L (22-30); Chloride 101 mmol/L (98-107); Estimated CRCL calculation 59 ml/min; Estimated Glomerular Filt Rate > 60; Glucose 113 mg/dL (65-110); Potassium 3.9 mmol/L (3.4-5.0); Sodium 130 mmol/L (137-145)
[2024-01-27 08:28] LABS: Glucose Point of Care 121 mg/dl (65-105)
[2024-01-27] MEDS: AMOXICILLIN/CLAVULANATE K 875-125 MG TAB 1 TABLET PO (08:53)
[2024-01-27] MEDS: ENOXAPARIN 40 MG/0.4 ML SYRINGE SUB-Q (08:53)
[2024-01-27] MEDS: PANTOPRAZOLE SODIUM IV 40 MG VIAL IV PUSH (09:45)
[2024-01-27 12:12] LABS: Glucose Point of Care 113 mg/dl (65-105)
--- NOTE | 2024-01-27 12:56 | PM.PNGS ---
Progress Note: A&P Assessment and Plan (1) Intra-abdominal abscess: Code(s): K65.1 - Peritoneal abscess Status: Acute Assessment and Plan: drain removed, ok to dc home c po abx, f/u c Dr. Daniels in 2 wks Subjective Subjective Date/Time Seen: 01/27/24 12:56 Interval history: feels good, no acute issues overnight, no pain, brigido diet Review of Systems Review of Systems: All systems reviewed & are unremarkable except as noted in HPI and below Exam Const: General: cooperative, comfortable and no acute distress Resp: Auscultation: clear to auscultation bilaterally Cardio: Rate: regular rate Rhythm: regular rhythm GI: Inspection: normal to inspection and non-distended GI Palp: No abdominal tenderness and Yes Soft to palpation Other: drain c scant drainage and removed at bedside Objective Data Vital Signs Vital Signs: Vital Signs - 24 hr 01/26/24 14:00 01/26/24 20:26 01/27/24 05:33 Temperature 36.7 C 36.2 C L 36.4 C L Pulse Rate 92 90 92 Respiratory Rate 15 20 22 H Blood Pressure 126/54 L 128/63 151/76 H Pulse Oximetry 98 99 98 Intake/Output Intake/Output: Intake & Output 01/24/24 01/25/24 01/26/24 01/27/24 23:59 23:59 23:59 23:59 Intake Total 1598 1610 2070 1044 Output Total 70 150 85 Balance 1528 1460 2070 959 Meds/Results Medications: Active Medications Generic Name Dose Route Start Last Admin Trade Name Freq PRN Reason Stop Dose Admin Acetaminophen 650 mg 01/22/24 12:35 01/25/24 06:46 Acetaminophen 325 Mg Tablet PO 650 mg Q4H PRN Administration Mild Pain (1-3) or Fever Hydrocodone Bitart/Acetaminophen 1 tab 01/22/24 12:35 01/26/24 20:43 Hydrocodone/Acetaminophen (*Crx) 5-325 Mg Tablet PO 1 tab Q4H PRN Administration Pain Rated 4-6 Hydrocodone Bitart/Acetaminophen 1 tab 01/22/24 12:35 01/27/24 02:06 Hydrocodone/Acetaminophen (*Crx) 7.5-325 Mg Tablet PO 1 tab Q6H PRN Administration Pain Rated 7-10 Albuterol 2 puff 01/16/24 15:13 Albuterol Sulfate (*Sp) Aerosol 1 Puff INHALATION QID PRN Shortness Of Breath Or Wheezing Amoxicillin/Clavulanate Potassium 1 tablet 01/25/24 21:00 01/27/24 08:53 Amoxicillin/Clavulanate K 875-125 Mg Tab PO 01/28/24 21:01 1 tablet Q12HR GI Administration Artificial Tears 1 drop 01/20/24 14:13 Artificial Tears Ophth Soln 15 Ml Bottle EACH EYE QID PRN Dry Eye(s) Dextrose 12.5 gm 01/16/24 15:11 Dextrose 50% 25 Gm/50 Ml Syringe IV PUSH PRN PRN Hypoglycemia Protocol Enoxaparin Sodium 40 mg 01/19/24 09:00 01/27/24 08:53 Enoxaparin 40 Mg/0.4 Ml Syringe SUB-Q 40 mg DAILY GI Administration Fentanyl Citrate 25 mcg 01/19/24 14:56 01/25/24 01:11 Fentanyl Citrate Inj (*Crx) 100 Mcg/2 Ml Vial IV PUSH 25 mcg Q2H PRN Administration Pain Rated 7-10 Glucagon 1 mg 01/16/24 15:11 Glucagon For Inj 1 Mg Vial IM PRN PRN Hypoglycemia Protocol Glucose 15 gm 01/16/24 15:11 Glucose Oral Gel 15 Gm Of Glucse In 37.5 Gm Tube PO PRN PRN Hypoglycemia Protocol Hydralazine HCl 20 mg 01/18/24 17:01 01/22/24 10:17 Hydralazine Hcl 20 Mg/Ml Vial IV PUSH 20 mg Q6HR PRN Administration Hypertension Dextrose 1,000 mls @ 100 mls/hr 01/16/24 15:11 Dextrose 5% 1,000 Ml IVPB PRN PRN Hypoglycemia Protocol Dextrose 1,000 mls @ 50 mls/hr 01/17/24 16:12 Dextrose 10% IV CONT .Q20H PRN if PN is interrupted Insulin Aspart 2 - 5 units 01/16/24 18:00 01/27/24 12:09 Insulin Aspart (*Bkc) 100 Units/Ml SUB-Q Not Given Q6HR GI Protocol Metronidazole 500 mg 01/25/24 18:00 01/27/24 12:11 Metronidazole 500 Mg Tablet PO 01/28/24 23:59 500 mg Q6HR GI Administration Ondansetron HCl 4 mg 01/16/24 09:06 01/24/24 23:49 Ondansetron Inj 4 Mg/2 Ml Vial IV PUSH 4 mg Q4H PRN Administration Nausea Pantoprazole Sodiu
--- NOTE | 2024-01-27 13:17 | PM.DS ---
DS: Admitting Diagnosis Discharge Date 01/27/24 Admitting Diagnosis Acute appendicitis DS: Discharge Diagnosis Discharge Diagnosis (1) Intra-abdominal abscess: Code(s): K65.1 - Peritoneal abscess Status: Acute (2) Peritonitis: Code(s): K65.9 - Peritonitis, unspecified Status: Acute (3) SIRS (systemic inflammatory response syndrome): Code(s): R65.10 - Systemic inflammatory response syndrome (SIRS) of non-infectious origin without acute organ dysfunction Status: Resolved (4) Umbilical hernia without obstruction and without gangrene: Code(s): K42.9 - Umbilical hernia without obstruction or gangrene Status: Acute (5) Temporal arteritis: Code(s): M31.6 - Other giant cell arteritis Status: Acute (6) Type 2 diabetes mellitus: Code(s): E11.9 - Type 2 diabetes mellitus without complications Status: Acute (7) Partial small bowel obstruction: Code(s): K56.600 - Partial intestinal obstruction, unspecified as to cause Status: Acute (8) Malnutrition: Code(s): E46 - Unspecified protein-calorie malnutrition Status: Acute (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 The patient provides the following history. She developed lower abdominal discomfort approximately 4 days ago which she initially attributed to constipation. Her appetite has been poor due to ongoing nausea. She has also had several episodes of nonbilious and nonbloody emesis. Her abdomen has become increasingly painful and distended and she also endorses nausea and vomiting. In the ED: She was afebrile on arrival with stable but slightly elevated blood pressures. Labs were significant for WBC count of 8.6, hemoglobin 14.3, hematocrit 42.2, sodium 138, potassium 3.2, BUN 21, creatinine 0.60, glucose 130, lactic acid 1.7. Urine was concentrated with 1+ protein and trace ketones. CT of the abdomen and pelvis showed probable extensive enterocolitis with a suspected 3.5 x 2.8 x 2.7 irregular central abdominal abscess. She received IV fluids, antiemetics, and analgesics, and antibiotics in the ED. Of note, she was started on prednisone 60 mg daily sometime last year for her giant cell arteritis which has been progressively weaned. She is currently on 3 mg prednisone a day and in the next week or so is supposed to drop to 2 mg a day. She was previously on methotrexate but had issues with that and is now on Actemra. Patient WBC up to 24.7 on 01/16 and BP dropped.? Patient still reported moderate to severe abd pain.? Upon assessment patient ABD is distended and firm pain to palpation.? Ordered stat follow-up labs and CT evaulate for possible perforation of abscess noted on previous CT scan.General surgery consulted. Patient had percutaneous drain placed on 01/18/2024. She was started on TPN per General surgery on 01/19/2024. Patient's TPN was discontinued on 01/23/2024. Patient's white blood cell count improved after percutaneous drain insertion. Patient's white count started going back up on 01/22/2024 and the drain was readjusted on 01/23/2024. Patient's abscess was cultured and grew E coli and Bacteroides fragilis. Both antibiotics were pansensitive. She was able to be weaned off broad-spectrum IV antibiotics to Augmentin and Flagyl with double anaerobic coverage. Spoke with patient's production line technician.? In patient hold off on initiating steroids until after infection is resolved. Patient's diet was slowly advanced. Patient's drain was able
[2024-01-27 14:00] VITALS: BP 123/53; PULSE 90; RESP 16; TEMP 36.9; O2SAT 93
[2024-01-27] MEDS: NEOMYCIN/POLYMYXIN/BACITRACIN OINTMENT PACKET 1 PACKET (15:15)
--- NOTE | 2024-01-27 16:33 | PC.NURSE ---
On 01/27/24, the DINKING MACHINE OPERATOR, Roxi, provided care and [facility]. I have reviewed the DINKING MACHINE OPERATOR's documentation and agree with the findings.
== END 2024-01-27 16:45 | disposition home health service (06) | DRG 372 ==
LOC: ANHED 08:26 → ANH3MEDSUR 17:53
PROVIDERS: Emergency Medicine; Internal Medicine Critical Care Medicine; Nurse Practitioner Family; Physician Assistant; Radiology Diagnostic Radiology; Surgery; Admitting Provider Internal Medicine; Emergency Provider Emergency Medicine; PCP Family Medicine; Visit Provider General Practice
PROC: 0W9G30Z Drainage of Peritoneal Cavity with Drainage Device, Percutaneous Approach (ICD-10-PCS; CPT 75989; principal; 2024-01-18 12:00)
DX: K35.33 Acute appendicitis with perforation, localized peritonitis, and gangrene, with abscess (principal); D84.821 Immunodeficiency due to drugs; K56.600 Partial intestinal obstruction, unspecified as to cause; R65.10 Systemic inflammatory response syndrome (SIRS) of non-infectious origin without acute organ dysfunction; E44.0 Moderate protein-calorie malnutrition; Z68.1 Body mass index [BMI] 19.9 or less, adult; K52.9 Noninfective gastroenteritis and colitis, unspecified; I10 Essential (primary) hypertension; E87.6 Hypokalemia; E11.9 Type 2 diabetes mellitus without complications; E78.5 Hyperlipidemia, unspecified; K42.9 Umbilical hernia without obstruction or gangrene; J45.909 Unspecified asthma, uncomplicated; F32.A Depression, unspecified; M31.6 Other giant cell arteritis; F41.9 Anxiety disorder, unspecified; Z86.73 Personal history of transient ischemic attack (TIA), and cerebral infarction without residual deficits; Z79.52 Long term (current) use of systemic steroids; Z79.82 Long term (current) use of aspirin; B96.20 Unspecified Escherichia coli [E. coli] as the cause of diseases classified elsewhere
CPT/HCPCS: 36415; 36569; 49083; 71045; 71260; 74018; 74177; 75989; 80048; 80053; 81001; 82248; 82948; 83605; 83690; 83735; 83880; 84100; 84145; 84466; 84478; 85025; 85027; 85610; 85730; 86140; 87040; 87045; 87070; 87075; 87186; 87205; 87269; 87272; 87427; 87449; 87493; 93005; 96365; 96375; 96376; 97110; 97116; 97161; 97165; 97530; 97535; 99285; A9270; C1729; C1769; C9113; J0360; J0692; J0696; J1200; J1650; J1720; J1815; J1836; J2250; J2270; J2405; J2543; J2765; J3010; J3480; J7030; J7040; J7120; Q9967

== ENCOUNTER 2024-02-16 13:39 | Outpatient (CLI) | payer OTHER, SELFPAY ==
--- NOTE | ~2024-02-16 | CT_ITS ---
EXAMINATION: CT abdomen pelvis w con DATE: 02/16/2024 14:16 INDICATION: Peritoneal abscess. TECHNIQUE: Computed tomography (CT) of the abdomen and pelvis was performed with 90 mL Omnipaque 350 intravenous contrast. Automated exposure control and iterative reconstruction technique were employed . The dose-length product was 173.82 mGy-cm. COMPARISON: CT abdomen and pelvis 01/22/2024 FINDINGS: The visualized portions of the lung bases demonstrate mild atelectasis. No pleural effusion . Cardiomegaly is noted. No pericardial effusion. The liver, gallbladder, spleen, pancreas, adrenal g lands, and right kidney are normal. There is cortical thinning of left kidney. There is calcified ath erosclerosis of the aorta and many of the other arteries. There is diverticulosis of the colon withou t evidence of diverticulitis. There are no dilated loops of bowel. There is a 4.1 x 1.2 x 1.1 cm rim- enhancing fluid collection with calcifications in the expected area of the appendix. There are no pat hologically enlarged lymph nodes. There is no free intraperitoneal fluid. There are old burst fractur es of T11, T12, L1, and L3. There is severe lumbar spondylosis. There are Tarlov cysts in the sacrum. IMPRESSION: 1. 4.1 x 1.2 x 1.1 cm periappendiceal abscess, improved from 4.7 x 2.6 x 2.0 cm on 01/22/2024. Reviewed, dictated and finalized at location E.
[2024-02-16 14:06] LABS: Estimated Glomerular Filt Rate > 60
== END 2024-02-16 13:40 ==
LOC: MICIMG 13:41
PROVIDERS: PCP Surgery; Visit Provider Surgery
DX: K65.1 Peritoneal abscess (principal)
CPT/HCPCS: 74177; Q9967

== ENCOUNTER 2024-03-07 13:37 | Outpatient (CLI) | payer OTHER, SELFPAY ==
--- NOTE | ~2024-03-07 | CT_ITS ---
EXAMINATION: CT abdomen pelvis w con DATE: 03/07/2024 14:15 INDICATION: Appendicitis. TECHNIQUE: Computed tomography (CT) of the abdomen and pelvis was performed with 100 mL Omnipaque-350 intravenous contrast. Automated exposure control and iterative reconstruction technique were employe d. The dose-length product was 179.13 mGy-cm. COMPARISON: 02/16/2024 and 01/22/2024 FINDINGS: Stable appearance of mild atelectasis/scarring at the left lung base. Cardiomegaly. No pericardial or pleural effusion. Liver, gallbladder, spleen, pancreas, bilateral adrenal glands and kidneys are nor mal. There is calcified atherosclerosis of the aorta and many of the other arteries. Bladder, uterus and bilateral adnexa are unremarkable. There is colonic diverticulosis most prominent along the sigmo id colon without adjacent from trace stranding to suggest diverticulitis. No bowel obstruction. Inter leroy resolution of the prior small abscess in the region of the appendix. No free intraperitoneal gas or fluid. No pathologically enlarged abdominal or pelvic lymphadenopathy. Small fat-containing umbili randy hernia. Multiple chronic burst fractures at T9, T11-L1 and at L3. Moderate to severe lumbar spond ylosis. IMPRESSION: 1. Interval resolution of a recent periappendiceal abscess. Reviewed, dictated and finalized at location A.
== END 2024-03-07 13:38 | disposition home or self-care (01) ==
LOC: ANHIMG 13:38
PROVIDERS: PCP Surgery; Visit Provider Surgery
DX: K35.80 Unspecified acute appendicitis (principal)
CPT/HCPCS: 74177; Q9967

== ENCOUNTER 2024-06-21 11:28 | Emergency (ER) | payer OTHER, SELFPAY ==
[2024-06-21] VITALS (10 sets, daily range): BP systolic 169–200; BP diastolic 80–98; PULSE 68–79; RESP 16–18; TEMP 36.3–36.7; O2SAT 92–100
--- NOTE | ~2024-06-21 | CT_ITS ---
EXAMINATION: CT abdomen pelvis wo con DATE: 06/21/2024 16:42 INDICATION: Abdominal pain. TECHNIQUE: Computed tomography (CT) of the abdomen and pelvis was performed without intravenous contr ast. Automated exposure control and iterative reconstruction technique were employed. The dose-length product was 175.62 mGy-cm. COMPARISON: CT abdomen and pelvis 03/07/2024 FINDINGS: The visualized portions of the lung bases demonstrate mild atelectasis. There are nodules i n right middle lobe and lingula, consistent with pneumonia. No pleural effusion. The heart size is no rmal. No pericardial effusion. The liver, gallbladder, spleen, pancreas, adrenal glands, and kidneys are normal. There is no urolithiasis. There are no dilated loops of bowel. There is diverticulosis of the colon without evidence of diverticulitis. The appendix is not visualized. There is calcified at herosclerosis of the aorta and many of the other arteries. There are no pathologically enlarged lymph nodes. There is no ascites. There is thoracolumbar dextroscoliosis and severe spondylosis. There are chronic fractures of multiple vertebral bodies. IMPRESSION: 1. Mild pneumonia involving right middle lobe and lingula. Reviewed, dictated and finalized at location A.
--- NOTE | ~2024-06-21 | CT_ITS ---
EXAMINATION: CT brain wo con DATE: 06/21/2024 16:42 INDICATION: Headache with nausea and vomiting TECHNIQUE: Computed tomography (CT) of the head was performed without intravenous contrast. Sagittal and coronal reconstructions were performed. The mA was adjusted according to patient size. Iterative reconstruction technique was employed. The dose-length product was 605.33 mGy-cm. COMPARISON: head CT dated 05/12/2023 FINDINGS: No acute intracranial hemorrhage, acute infarction or abnormal extra axial fluid collection. Unchange d old lacunar infarct at the posterior left lentiform nucleus extending into the emmanuel radiata. Ther e is mild scattered white matter hypoattenuation consistent with chronic small vessel ischemic diseas e. Ventricles are normal and symmetric. No mass/mass effect. Changes of bilateral intraocular lens re placement. Mucosal thickening in the left maxillary sinus with thickened sclerotic cline consistent w ith chronic sinusitis. Persistent small bilateral mastoid effusions. Intracranial calcified cerebral atherosclerosis is noted. IMPRESSION: 1. No acute intracranial process. 2. Small old lacunar infarct at the left lentiform nucleus and adjacent emmanuel radiata. 3. Mild scattered white matter hypoattenuation consistent with chronic small vessel ischemic disease. Reviewed, dictated and finalized at location A. IMPRESSION: 1. No acute intracranial process. 2. Small old lacunar infarct at the left lentiform nucleus and adjacent emmanuel radiata. 3. Mild scattered white matter hypoattenuation consistent with chronic small ve ssel ischemic disease.
[2024-06-21 16:40] LABS: Basophils Percent Auto 0.5 % (0.2-1.2); Eosinophils Absolute Auto 0.1 K/mm3 (0-0.3); Eosinophils Percent Auto 0.7 % (0-4.4); Hematocrit 36.9 % (37.0-47.0); Hemoglobin 12.4 g/dL (12.0-15.0); Immature Granulocyte Absolute 0.03 K/mm3 (0.00-0.031); Immature Granulocyte Percent A 0.4 % (0-0.5); Lymphocytes Absolute Auto 1.24 K/mm3 (0.9-3.2); Lymphocytes Percent Auto 15.2 % (18.3-44.2); Mean Corpuscular HGB Conc 33.6 g/dl (32-36); Mean Corpuscular Hemoglobin 29.2 pg (26-34); Mean Platelet Volume 8.9 fl (7.4-10.4); Monocytes Absolute Auto 0.7 K/mm3 (0.1-0.6); Monocytes Percent Auto 8.7 % (2.6-8.5); Neutrophils Absolute Auto 6.1 K/mm3 (1.3-6.7); Neutrophils Percent Auto 74.5 % (45.5-73.1); Platelet Count Result 234 k/mm3 (150-375); Red Blood Count 4.24 M/mm3 (4.2-5.4); Red Cell Distribution Width 16.3 % (11.5-14.5); White Blood Count 8.1 K/mm3 (4.5-10.0)
[2024-06-21 16:49] LABS: Lactic Acid Reflex 1.2 mmol/L (0.7-2.0)
[2024-06-21 16:50] LABS: Alanine Aminotransferase 23 U/L (6-35); Albumin Level 4.4 g/dL (3.5-5.1); Alkaline Phosphatase 58 U/L (38-126); Anion Gap 8 mmol/L (4-12); Aspartate Amino Transferase 27 U/L (14-36); Bilirubin,Total 1.7 mg/dL (0.2-1.3); Blood Urea Nitrogen 17 mg/dL (7-17); Calcium 9.2 mg/dL (8.4-10.2); Carbon Dioxide 29 mmol/L (22-30); Chloride 96 mmol/L (98-107); Estimated CRCL calculation 40 ml/min; Estimated Glomerular Filt Rate > 60; Glucose 94 mg/dL (65-110); Lipase 54 U/L (23-300); Potassium 3.9 mmol/L (3.4-5.0); Sodium 133 mmol/L (137-145)
[2024-06-21] MEDS: SODIUM CHLORIDE 0.9% IV 1,000 ML 999 ML IV CONT (17:20)
[2024-06-21] MEDS: diphenhydrAMINE HCl INJ 50 MG/ML VIAL 25 MG IV PUSH ×2 (17:23→17:57)
[2024-06-21] MEDS: PROCHLORPERAZINE EDISYLATE 10 MG/2 ML VIAL IV PUSH (17:23)
[2024-06-21 17:34] LABS: Add Urine Microscopic? YES; Appearance Urine Clear (Clear); Bacteria Urine None Seen /hpf; Bilirubin Urine 1+ (Negative); Blood Urine Negative (Negative); Color Urine Dark Yellow (Yellow); Glucose Urine UA Negative (Negative); Ketones Urine 1+ mg/dL (Negative); Leukocyte Esterase Ur 2+ LEU/UL (Negative); Need Manual Microscopic Reviewed; Nitrate Urine Negative (Negative); Non Pathogenic Casts 0-2; Protein Urine Trace mg/dL (Negative); Specific Grav Ur 1.021 (1.001-1.035); Squamous Epithelial Cell Urine Occasional /hpf (Few); pH Urine 6.5 (5.0-9.0)
[2024-06-21] MEDS: MAGNESIUM SULF 2 GM/WATER 50ML 2 GM/50 ML BAG IVPB (17:58)
[2024-06-21] MEDS: LORazepam INJ (*CRX) 2 MG/ML VIAL 1 MG IV PUSH (18:21)
--- NOTE | 2024-06-21 19:31 | ED.NAVMDI ---
HPI - Nausea/Vomiting/Diarrhea General Chief complaint: Nausea/Vomiting/Diarrhea Stated complaint: vomiting and headache since Monday Time Seen by Provider: 06/21/24 15:41 History of Present Illness HPI Narrative: This is an 83-year-old female with a past medical history significant for hypertension, diabetes, longstanding giant cell arteritis. Patient presents to the emergency department a chief complaint of nauseousness, vomiting, diarrhea, headache. Patient states her headache feels very different than her usual headaches from her giant cell arteritis. She is not presently taking any steroids and is under the care of a hospitality intern for biologic therapy. No new medications or titration of her medications. She states the headache is present in the left side of her head, throbbing in nature and constant for last few days. Does not involve her eyes and she has no vision changes from baseline. Endorses nausea with vomiting, but is able tolerate p.o. intake. She has also had some mild cramping abdominal pain and diarrhea. Denies any chest pain, difficulty breathing, fever, chills. Was recently started on a dose of nitrofurantoin for a UTI discovered outpatient several days prior. Related Data Home Medications Medication Instructions Recorded Confirmed albuterol sulfate 90 mcg/actuation 2 puff inhalation QID PRN 01/04/23 06/03/24 aerosol inhaler (ProAir HFA) Shortness Of Breath Or Wheezing albuterol sulfate 90 mcg/actuation 1 inh inhalation Q4-6H PRN 01/04/23 06/03/24 breath activated powder inhaler Shortness Of Breath Or Wheezing (ProAir RespiClick) multivit with minerals-iron 18 1 tablet PO DAILY 01/04/23 06/03/24 mg-folic ac 400 mcg-vit K 25 mcg tablet (Adults Multivitamin) tiotropium bromide 2.5 2 puff inhalation DAILY PRN 01/04/23 06/03/24 mcg/actuation mist for inhalation Shortness Of Breath Or Wheezing (Spiriva Respimat) cholecalciferol (vitamin D3) 125 125 mcg PO WEEKLY 12/11/23 06/03/24 mcg (5,000 unit) capsule folic acid 1 mg tablet 1 mg PO DAILY 01/15/24 06/03/24 Allergies Allergy/AdvReac Type Severity Reaction Status Date / Time No Known Allergies Allergy Verified 06/21/24 10:33 Review of Systems Review of Systems: As reviewed above in HPI [facility] Past Medical History Medical History Abdominal abscess Acute appendicitis Anxiety Asthma Cerebrovascular accident (2015) Chronic steroid use Depression Enterocolitis Hearing loss History of cerebrovascular accident Hypertension Immunocompromised due to corticosteroids Methotrexate adverse reaction Mixed hyperlipidemia Partial small bowel obstruction Peritoneal abscess Pneumothorax SIRS (systemic inflammatory response syndrome) Temporal arteritis Type 2 diabetes mellitus Vertebral compression fracture Wedge compression fracture of sixth thoracic vertebra Surgical History Surgical History History of surgery on wrist History of tonsillectomy Family History Family History Mother Renal failure Sibling Heart attack Social History Social History Social History: Surrogate medical decision maker: Adryan Garcia, son. Code status: Full code. Smoking status: Never smoker Alcohol intake: current Drinks per week: 2 Substance use: never Substance use type: does not use Do You Feel Safe in your Home?: Yes Lack of Transportation: No Lack of Food: Never True Current Housing: I Have Housing Concerned About Future Housing: No Difficulty Paying Gas/Electric Bills: No Difficulty Paying for Meds: No Currently Unemployed: No Education: Trade/Vocational Certificate Difficulty w/ Childcare or Family Care: No Additional living arrangements comments: Lives with
--- NOTE | 2024-06-21 19:36 | PC.NURSE ---
Pt had adverse reaction to compazine. Was given second dose of benedryl with minimal improvement, still reported feeling jittery and like she needs to run the halls . MD then ordered lorazepam. Pt now much more calm and resting on stretcher. Plan for discharge after medications finish infusing. Pt and family aware.
[2024-06-21] MEDS: levoFLOXacin 750 MG TABLET PO (20:57)
== END 2024-06-21 21:03 | disposition home or self-care (01) ==
PROVIDERS: Emergency Provider Student in an Organized Health Care Education/Training Program; PCP Family Medicine
DX: J18.9 Pneumonia, unspecified organism (principal); N39.0 Urinary tract infection, site not specified; R51.9 Headache, unspecified; J45.909 Unspecified asthma, uncomplicated; F41.8 Other specified anxiety disorders; I10 Essential (primary) hypertension; E78.5 Hyperlipidemia, unspecified; E11.9 Type 2 diabetes mellitus without complications
CPT/HCPCS: 36415; 70450; 74176; 80053; 81001; 83605; 83690; 85025; 87086; 96361; 96365; 96366; 96375; 99284; A9270; J0780; J1200; J2060; J3475; J7030

== ENCOUNTER 2024-07-21 10:18 | Emergency (ER) | payer OTHER, SELFPAY ==
--- NOTE | 2024-07-21 13:49 | ED.HA ---
HPI - Headache General Chief Complaint: Headache Stated Complaint: headaches, nausea Time Seen by Provider: 07/21/24 13:14 Source: patient, family, RN notes reviewed and old records reviewed Mode of arrival: ambulatory Limitations: no limitations History of Present Illness HPI Narrative: THis is an 83 year old female with history of DM, temporal arteritis, who presents for evaluation of a headache. Patient has been headaches off and on for 2 months. She was diagnosed with temporal arteritis 2 year ago and she has been following with her operations program manager. She states she was seen by her operations program manager and it is reported her ESR is normal and they do not think it is due to TA. Her hardware engineer reports her TA is not cause as well. She reports headache is located left frontal around to left posterior. She describes pain as throbbing at his worse and dull ache when it is mild. She has associated nausea and vomiting with her severe pain. She denies vision changes with her headache. Currently her headache is 3/10. She denies URI symptoms, focal deficit. Kalyan at bedside states her headache is daily and she is having nausea and vomiting most days. Related Data Home Medications Medication Instructions Recorded Confirmed albuterol sulfate 90 mcg/actuation 2 puff inhalation QID PRN 01/04/23 06/03/24 aerosol inhaler (ProAir HFA) Shortness Of Breath Or Wheezing albuterol sulfate 90 mcg/actuation 1 inh inhalation Q4-6H PRN 01/04/23 06/03/24 breath activated powder inhaler Shortness Of Breath Or Wheezing (ProAir RespiClick) multivit with minerals-iron 18 1 tablet PO DAILY 01/04/23 06/03/24 mg-folic ac 400 mcg-vit K 25 mcg tablet (Adults Multivitamin) tiotropium bromide 2.5 2 puff inhalation DAILY PRN 01/04/23 06/03/24 mcg/actuation mist for inhalation Shortness Of Breath Or Wheezing (Spiriva Respimat) cholecalciferol (vitamin D3) 125 125 mcg PO WEEKLY 12/11/23 06/03/24 mcg (5,000 unit) capsule folic acid 1 mg tablet 1 mg PO DAILY 01/15/24 06/03/24 Allergies Allergy/AdvReac Type Severity Reaction Status Date / Time nitrofurantoin Allergy Intermediate Agitated Verified 06/28/24 14:24 [From Macrobid] diphenhydramine Allergy Agitated Verified 06/28/24 14:23 [From Benadryl] prochlorperazine AdvReac Agitated Verified 07/21/24 13:28 [From Compazine] Review of Systems Constitutional: Constitutional: Denies weakness Cardiovascular: Cardiovascular: Denies syncope, Denies rapid heart rate, Denies irregular heart rhythm, Denies leg edema and Denies dyspnea Respiratory: Respiratory: Denies chest congestion, Denies hemoptysis, Denies excessive phlegm production and Denies dyspnea Gastrointestinal: Gastrointestinal: Denies abdominal pain, Denies hematochezia, Denies diarrhea and Denies vomiting Genitourinary: Genitourinary: Denies hematuria and Denies dysuria Musculoskeletal: Musculoskeletal: Denies joint swelling, Denies loss of height and Denies muscle weakness Neurologic: Denies syncope, Reports headache(s), Denies focal weakness and Denies weakness PMFSH Past Medical History Medical History Abdominal abscess Acute appendicitis Anxiety Asthma Cerebrovascular accident (2014) Chronic steroid use Depression Enterocolitis Hearing loss History of cerebrovascular accident Hypertension Immunocompromised due to corticosteroids Methotrexate adverse reaction Mixed hyperlipidemia Partial small bowel obstruction Peritoneal abscess Pneumothorax SIRS (systemic inflammatory response syndrome) Temporal arteritis Type 2 diabetes mellitus Vertebral compression fracture Wedge compression fracture of sixth thoracic vertebra Surgical History Surgical History History of surgery on wrist History of tonsillectomy Family History Family History
[2024-07-21 14:18] LABS: Basophils Percent Auto 0.6 % (0.2-1.2); Eosinophils Absolute Auto 0.1 K/mm3 (0-0.3); Eosinophils Percent Auto 1.2 % (0-4.4); Hematocrit 39.2 % (37.0-47.0); Hemoglobin 13.4 g/dL (12.0-15.0); Immature Granulocyte Absolute 0.02 K/mm3 (0.00-0.031); Immature Granulocyte Percent A 0.3 % (0-0.5); Lymphocytes Absolute Auto 1.42 K/mm3 (0.9-3.2); Mean Corpuscular HGB Conc 34.2 g/dl (32-36); Mean Corpuscular Volume 87.7 fl (80-100); Mean Platelet Volume 8.9 fl (7.4-10.4); Monocytes Absolute Auto 0.8 K/mm3 (0.1-0.6); Neutrophils Absolute Auto 4.1 K/mm3 (1.3-6.7); Neutrophils Percent Auto 63.9 % (45.5-73.1); Platelet Count Result 236 k/mm3 (150-375); Red Blood Count 4.47 M/mm3 (4.2-5.4); Red Cell Distribution Width 16.3 % (11.5-14.5); White Blood Count 6.4 K/mm3 (4.5-10.0)
[2024-07-21 14:30] LABS: Alanine Aminotransferase 21 U/L (6-35); Albumin Level 4.6 g/dL (3.5-5.1); Alkaline Phosphatase 58 U/L (38-126); Anion Gap 8 mmol/L (4-12); Aspartate Amino Transferase 31 U/L (14-36); Bilirubin,Total 2.2 mg/dL (0.2-1.3); Blood Urea Nitrogen 21 mg/dL (7-17); Calcium 9.1 mg/dL (8.4-10.2); Carbon Dioxide 28 mmol/L (22-30); Chloride 96 mmol/L (98-107); Estimated CRCL calculation 40 ml/min; Estimated Glomerular Filt Rate > 60; Glucose 83 mg/dL (65-110); Lipase 56 U/L (23-300); Potassium 4.4 mmol/L (3.4-5.0); Sodium 132 mmol/L (137-145)
[2024-07-21 14:38] LABS: Add Urine Microscopic? YES; Appearance Urine Cloudy (Clear); Bacteria Urine None Seen /hpf; Bilirubin Urine 1+ (Negative); Blood Urine Negative (Negative); Color Urine Dark Yellow (Yellow); Glucose Urine UA Negative (Negative); Ketones Urine 3+ mg/dL (Negative); Leukocyte Esterase Ur 3+ LEU/UL (Negative); Nitrate Urine Negative (Negative); Non Pathogenic Casts 0-2; Protein Urine Trace mg/dL (Negative); RBC Urine 0-2 /hpf (0-2); Specific Grav Ur 1.023 (1.001-1.035); Squamous Epithelial Cell Urine Few /hpf (Few); WBC Urine 21-50 /hpf (0-3); pH Urine 6.5 (5.0-9.0)
[2024-07-21] MEDS: SODIUM CHLORIDE 0.9% IV 1,000 ML 999 ML IV CONT (15:09)
[2024-07-21] MEDS: ONDANSETRON INJ 4 MG/2 ML VIAL IV PUSH ×2 (15:10→16:25)
[2024-07-21] MEDS: PANTOPRAZOLE SODIUM IV 40 MG VIAL IV PUSH (15:12)
[2024-07-21] MEDS: KETOROLAC 15 MG/ML VIAL (*BKC) IV PUSH (15:14)
[2024-07-21 17:28] VITALS: BP 157/86; PULSE 78; RESP 16; O2SAT 98
== END 2024-07-21 17:29 | disposition home or self-care (01) ==
PROVIDERS: Emergency Provider General Practice; PCP Family Medicine
DX: R51.9 Headache, unspecified (principal); N39.0 Urinary tract infection, site not specified; E86.0 Dehydration; J45.909 Unspecified asthma, uncomplicated; I10 Essential (primary) hypertension; E78.2 Mixed hyperlipidemia; E11.9 Type 2 diabetes mellitus without complications; M31.6 Other giant cell arteritis; F41.9 Anxiety disorder, unspecified; F32.A Depression, unspecified; Z86.73 Personal history of transient ischemic attack (TIA), and cerebral infarction without residual deficits; Z79.84 Long term (current) use of oral hypoglycemic drugs; Z79.899 Other long term (current) drug therapy
CPT/HCPCS: 36415; 80053; 81001; 83690; 85025; 87077; 87086; 87186; 96361; 96374; 96375; 99284; J1885; J2405; J2470; J7030